=== PATIENT | female | born 1945 | race Caucasian/White ===

== ENCOUNTER 2020-03-14 09:55 | Outpatient (REF) | payer MEDICARE, SELFPAY ==
--- NOTE | 2020-03-14 | MM_ITS ---
EXAMINATION: MM SCREENING DIGITAL BREAST TOMOSYNTHESIS, BILATERAL CLINICAL INFORMATION: Screening. Asymptomatic. The lifetime risk of breast cancer based on the Tyrer-Cuzick Model is 3.3%. COMPARISON: Mammography: March 08, 2019 and studies dating back to December 04, 2011 TECHNIQUE: Digital breast tomosynthesis is performed in both the craniocaudal and mediolateral oblique views along with computer-aided detection (CAD). Synthesized 2D images are generated from the tomosynthesis. FINDINGS: There are scattered areas of fibroglandular density (ACR BI-RADS breast composition Category b). There are no significant masses, abnormal calcifications, or other abnormalities. MM/MM tomosynthesis screening BI IMPRESSION: There are no significant changes from prior study. ASSESSMENT: BI-RADS 1: Negative RECOMMENDATION: Routine annual mammography screening. This patient's information was entered into a reminder system with a target due date for their next mammogram.
== END 2020-03-14 09:56 | disposition home or self-care (01) ==
LOC: HO.MAMMO 09:55
PROVIDERS: PCP Internal Medicine; Visit Provider Internal Medicine
DX: Z12.31 Encounter for screening mammogram for malignant neoplasm of breast (principal)
CPT/HCPCS: 77063; 77067

== ENCOUNTER 2020-03-30 09:39 | Outpatient (REF) | payer MEDICARE, SELFPAY ==
--- NOTE | 2020-03-30 | XR_ITS ---
EXAMINATION: XR FOOT, LEFT CLINICAL INFORMATION: Left foot pain COMPARISON: 12/18/2015 TECHNIQUE: AP, lateral, and oblique views of the left foot. FINDINGS: No acute fracture or dislocation. Mild soft tissue swelling overlies the medial aspect of the foot at the fifth metatarsophalangeal joint region. No osseous erosion. Mild degenerative changes throughout the interphalangeal joints with narrowing and sclerosis. No ankle joint effusion. Small heel spurs. XR/XR foot LT min 3V IMPRESSION: Mild lateral soft tissue swelling without acute osseous abnormality. No osseous erosions. Arthritic changes of the digits.
[2020-03-30 12:30] LABS: Anion Gap 15 (12-20); Blood Urea Nitrogen 17 mg/dL (9-16); Carbon Dioxide 29 mmol/L (22-29); Chloride 99 mmol/L (96-108); Estimated Glomerular Filt Rate > 60; Glucose Random 152 mg/dL (60-115); Potassium 3.7 mmol/l (3.3-5.1); Sodium 139 mmol/L (135-145)
[2020-03-30 12:44] LABS: Estimated Average Glucose 120 mg/dL; Hemoglobin A1c % 5.8 %
== END 2020-03-30 09:40 | disposition home or self-care (01) ==
LOC: HO.HMGCLDS 09:39
PROVIDERS: PCP Internal Medicine; Visit Provider Internal Medicine
DX: M79.672 Pain in left foot (principal); J45.909 Unspecified asthma, uncomplicated; I10 Essential (primary) hypertension; R73.03 Prediabetes
CPT/HCPCS: 73630; 80048; 83036

== ENCOUNTER 2020-08-01 10:33 | Outpatient (REF) | payer MEDICARE, SELFPAY ==
[2020-08-01 13:56] LABS: MANUAL DIFF FLAG NO
[2020-08-01 14:06] LABS: Basophils Absolute Auto 0.1 X10*3/uL (0.0-0.2); Basophils Percent Auto 1.6 % (0-2); Eosinophils Absolute Auto 0.2 X10*3/uL (0.0-0.4); Eosinophils Percent Auto 2.4 % (0-4); Hematocrit 38.4 % (37-47); Hemoglobin 12.8 g/dl (12.0-16.0); Imm Gran Abs Auto 0.03 X10*3/uL (0.00-0.03); Imm Gran Pct Auto 0.4 % (0.0-0.4); Lymphocytes Absolute Auto 1.5 X10*3/uL (1.2-4.9); Lymphocytes Percent Auto 19.5 % (20-40); Mean Corpuscular HGB Conc 33.3 g/dl (31.0-35.0); Mean Corpuscular Hemoglobin 30.8 pg (27.0-33.0); Mean Corpuscular Volume 92.5 fL (80-98); Mean Platelet Volume 10.7 fL (9.4-12.3); Monocytes Percent Auto 12.8 % (2-11); Neutrophils Absolute Auto 4.7 X10*3/uL (2.0-8.3); Neutrophils Percent Auto 63.3 % (45-73); Platelet Count 350 X10*3/uL (160-400); Red Blood Count 4.15 X10*6/uL (4.20-5.50); Red Cell Distribution Width 13.1 % (11.0-16.0); White Blood Count 7.4 X10*3/uL (4.8-10.8)
[2020-08-01 14:12] LABS: Estimated Average Glucose 114 mg/dL; Hemoglobin A1c % 5.6 %
[2020-08-01 14:46] LABS: Alanine Aminotransferase 22 U/L (0-31); Albumin Level 4.2 g/dL (3.5-5.0); Alkaline Phosphatase 70 U/L (39-117); Anion Gap 15 (12-20); Aspartate Amino Transferase 22 U/L (5-31); Bilirubin Total 0.4 mg/dL (0.0-1.0); Blood Urea Nitrogen 15 mg/dL (9-16); Calcium 9.5 mg/dL (8.4-10.2); Carbon Dioxide 28 mmol/L (22-29); Chloride 105 mmol/L (96-108); Estimated Glomerular Filt Rate > 60; Glucose Random 108 mg/dL (60-115); Potassium 4.5 mmol/L (3.3-5.1); Sodium 143 mmol/L (135-145); Total Protein 6.8 g/dL (6.5-8.0)
== END 2020-08-01 10:34 | disposition home or self-care (01) ==
LOC: HO.10HDL 10:33
PROVIDERS: Visit Provider Internal Medicine
DX: R73.03 Prediabetes (principal); J45.909 Unspecified asthma, uncomplicated; I10 Essential (primary) hypertension; K21.9 Gastro-esophageal reflux disease without esophagitis
CPT/HCPCS: 36415; 80053; 83036; 85025

== ENCOUNTER 2020-10-18 10:57 | Outpatient (REF) | payer MEDICARE, SELFPAY ==
[2020-10-18 11:54] LABS: MANUAL DIFF FLAG NO
[2020-10-18 12:03] LABS: Basophils Absolute Auto 0.1 X10*3/uL (0.0-0.2); Basophils Percent Auto 1.7 % (0-2); Eosinophils Absolute Auto 0.3 X10*3/uL (0.0-0.4); Eosinophils Percent Auto 4.4 % (0-4); Hematocrit 39.7 % (37-47); Hemoglobin 13.2 g/dl (12.0-16.0); Imm Gran Abs Auto 0.02 X10*3/uL (0.00-0.03); Imm Gran Pct Auto 0.3 % (0.0-0.4); Lymphocytes Absolute Auto 1.5 X10*3/uL (1.2-4.9); Mean Corpuscular HGB Conc 33.2 g/dl (31.0-35.0); Mean Corpuscular Hemoglobin 30.6 pg (27.0-33.0); Mean Corpuscular Volume 91.9 fL (80-98); Mean Platelet Volume 9.7 fL (9.4-12.3); Monocytes Percent Auto 12.7 % (2-11); Neutrophils Absolute Auto 4.7 X10*3/uL (2.0-8.3); Neutrophils Percent Auto 60.9 % (45-73); Platelet Count 312 X10*3/uL (160-400); Red Blood Count 4.32 X10*6/uL (4.20-5.50); Red Cell Distribution Width 12.8 % (11.0-16.0); White Blood Count 7.7 X10*3/uL (4.8-10.8)
[2020-10-18 12:32] LABS: Alanine Aminotransferase 19 U/L (0-31); Albumin Level 4.3 g/dL (3.5-5.0); Alkaline Phosphatase 74 U/L (39-117); Anion Gap 11 (12-20); Aspartate Amino Transferase 23 U/L (5-31); Bilirubin Total 0.6 mg/dL (0.0-1.0); Blood Urea Nitrogen 12 mg/dL (9-16); Calcium 9.6 mg/dL (8.4-10.2); Carbon Dioxide 28 mmol/L (22-29); Chloride 106 mmol/L (96-108); Estimated Glomerular Filt Rate > 60; Glucose Random 102 mg/dL (60-115); Iron 110 mcg/dL (30-160); Percent Iron Saturation 34 % (15-50); Potassium 3.9 mmol/L (3.3-5.1); Sodium 141 mmol/L (135-145); Total Iron Binding Capacity 322 mcg/dL (228-428); Unsaturated Iron Binding 212 ug/dL
[2020-10-18 12:35] LABS: Estimated Average Glucose 120 mg/dL; Hemoglobin A1c % 5.8 %
== END 2020-10-18 10:58 | disposition home or self-care (01) ==
LOC: HO.LAB 10:57
PROVIDERS: PCP Internal Medicine; Visit Provider Internal Medicine
DX: I10 Essential (primary) hypertension (principal); R60.9 Edema, unspecified; K62.5 Hemorrhage of anus and rectum; R73.03 Prediabetes
CPT/HCPCS: 36415; 80053; 83036; 83540; 85025

== ENCOUNTER 2020-12-01 09:57 | Day surgery (SDC) | payer MEDICARE, SELFPAY ==
--- NOTE | 2020-11-29 15:11 | HO.ANESPROP2 ---
Documented by User: Felisa Arredondo 11/30/20 12:28 HPI - Anesthesia Eval Consult details Narrative: 75yo F for Colonoscopy [facility] Past Medical History Medical History Arthritis Asthma GERD (gastroesophageal reflux disease) Glucose intolerance HLD (hyperlipidemia) HTN (hypertension) Surgical History Surgical History H/O dilation and curettage H/O tubal ligation Meds Allergies Allergy/AdvReac Type Severity Reaction Status Date / Time codeine [CODEINE] Allergy Severe DIFFICULTY Unverified 01/27/20 14:45 BREATHING meperidine [Demerol] Allergy Unknown Verified 07/02/18 00:00 From DARVON Allergy Severe SHORTNESS Uncoded 01/27/20 14:45 OF BREATH Codeine Phosphate Allergy Unknown Uncoded 07/02/18 00:00 Darvon Allergy Unknown Uncoded 07/02/18 00:00 Exam Exam Date and Time: November 29, 2020 1511 Pertinent Lab Results Pertinent Lab Results: Laboratory Tests 10/18/20 10/18/20 11:16 11:16 WBC 7.7 Hgb 13.2 Hct 39.7 Plt Count 312 Sodium 141 Potassium 3.9 Chloride 106 Carbon Dioxide 28 BUN 12 Creatinine 0.72 Assessment and Plan Assessment Anesthesia Assessment: Chart Reviewed Documented by User: Demetrice Rowan 12/01/20 09:37 [facility] Past Medical History Medical History Arthritis Asthma GERD (gastroesophageal reflux disease) Glucose intolerance HLD (hyperlipidemia) HTN (hypertension) Surgical History Surgical History H/O dilation and curettage H/O tubal ligation Meds Allergies Allergy/AdvReac Type Severity Reaction Status Date / Time codeine [CODEINE] Allergy Severe DIFFICULTY Unverified 01/27/20 14:45 BREATHING meperidine [Demerol] Allergy Unknown Verified 07/02/18 00:00 From DARVON Allergy Severe SHORTNESS Uncoded 01/27/20 14:45 OF BREATH Codeine Phosphate Allergy Unknown Uncoded 07/02/18 00:00 Darvon Allergy Unknown Uncoded 07/02/18 00:00
[2020-12-01 10:12] VITALS: BMI 34.7
--- NOTE | 2020-12-01 10:13 | MHC.SHP ---
Pre-Procedural Eval Section A Date of Service: 12/01/20 The patient is an INPATIENT: No Changes since office visit: No Cold of Flu in the past 2 weeks, No New Medical Problems, No Changes in Medication and No Patient answered all questions The History & Physical has been completed within 30 days and I have reviewed it.: Yes Section B Chief Complaint: rectal bleeding Allergies: Allergies Allergy/AdvReac Type Severity Reaction Status Date / Time codeine [CODEINE] Allergy Severe DIFFICULTY Unverified 01/27/20 14:45 BREATHING meperidine [Demerol] Allergy Unknown Verified 07/02/18 00:00 From DARVON Allergy Severe SHORTNESS Uncoded 01/27/20 14:45 OF BREATH Codeine Phosphate Allergy Unknown Uncoded 07/02/18 00:00 Darvon Allergy Unknown Uncoded 07/02/18 00:00 Plan I have reviewed the history and physical and performed a pertinent physical examination on my patient. No changes have occurred unless specified.
[2020-12-01] MEDS: Sodium Phosphate,Mono-Dibasic 133 ML ENEMA PR (10:20)
[2020-12-01 10:44] VITALS: BP 170/61; PULSE 89; RESP 16; TEMP 36.2; O2SAT 95
[2020-12-01] MEDS: Lactated Ringers 1,000 ML 100 ML IVCONT (10:45)
[2020-12-01 11:39] VITALS: BP 111/48; PULSE 71; RESP 16; TEMP 36.3; O2SAT 97
--- NOTE | 2020-12-01 11:50 | P.BOP_ITS ---
Brief Operative Note Date of Service: 12/01/20 Pre-op diagnosis: rectal bleeding Post-op diagnosis: same (hemorrhoids, diverticulosis) Procedure: colonoscopy Surgeon: Earl Sawyer Anesthesia: MAC Was an Technology Sales Specialist used for this Procedure?: No Estimated blood loss (mL): 0 Pathology: none sent Condition: stable Disposition: PACU
[2020-12-01 11:54] VITALS: BP 125/51; PULSE 74; RESP 16; TEMP 36.3; O2SAT 97
--- NOTE | 2020-12-01 21:42 | OP_ITS ---
SURGEON: Earl Sawyer MD INDICATIONS: Rectal bleeding. PREOPERATIVE DIAGNOSIS: POSTOPERATIVE DIAGNOSIS: PROCEDURE PERFORMED: Colonoscopy to the cecum. ESTIMATED BLOOD LOSS: COMPLICATIONS: ANESTHESIA: ASSISTANTS: SPECIMENS: MEDICATIONS: Monitored anesthesia care. DESCRIPTION OF PROCEDURE: History and physical performed. The risks and benefits of the procedure were explained to the patient. Informed consent was obtained. The patient was placed in the left lateral decubitus position. A digital rectal exam was performed and showed a decreasing sphincter tone. The Olympus pediatric video colonoscope was introduced into the rectum and advanced to the cecum without difficulty. The cecum was identified by transillumination, palpation, and identification of ileocecal valve. Examination was performed. The scope was removed. She tolerated the procedure well and was taken to recovery area in stable condition. FINDINGS: The terminal ileum was not examined. The visualized colonic mucosa was normal without evidence of colitis. There was moderate diverticulosis involving the sigmoid with luminal narrowing and muscular hypertrophy. No polyps were identified. There was some formed stool, which was in small pieces that was washed and suctioned. Retroflexed examination showed moderately large internal hemorrhoids and external hemorrhoids were noted on withdrawal of the colonoscope. IMPRESSION: 1. Diverticulosis. 2. Hemorrhoids. RECOMMENDATIONS: 1. Follow up as needed. 2. Further colonoscopy for screening is not recommended based on age. 3. 1% hydrocortisone cream to the rectal area for treatment of hemorrhoids. MD SUNITA Fletcher/DEACON / [id number]
== END 2020-12-01 12:24 | disposition home or self-care (01) ==
PROVIDERS: PCP Internal Medicine; Visit Provider Internal Medicine Gastroenterology
PROC: 0DJD8ZZ Inspection of Lower Intestinal Tract, Via Natural or Artificial Opening Endoscopic (ICD-10-PCS; CPT 45378; principal; 2020-12-01 11:40)
DX: K62.5 Hemorrhage of anus and rectum (principal); R14.0 Abdominal distension (gaseous); Z86.010 Personal history of colon polyps; K57.30 Diverticulosis of large intestine without perforation or abscess without bleeding; K64.8 Other hemorrhoids; K64.4 Residual hemorrhoidal skin tags; K21.9 Gastro-esophageal reflux disease without esophagitis; J45.909 Unspecified asthma, uncomplicated; I10 Essential (primary) hypertension; E74.39 Other disorders of intestinal carbohydrate absorption; Z79.1 Long term (current) use of non-steroidal anti-inflammatories (NSAID); Z79.899 Other long term (current) drug therapy; Z88.8 Allergy status to other drugs, medicaments and biological substances
CPT/HCPCS: 45378

== ENCOUNTER 2020-12-14 20:30 | Inpatient (IN) | payer MEDICARE, SELFPAY ==
--- NOTE | ~2020-12-14 | CT_ITS ---
EXAMINATION: CT ABDOMEN AND PELVIS WITHOUT CONTRAST CLINICAL INFORMATION: Abdominal pain and leukocytosis COMPARISON: 02/21/2013 TECHNIQUE: Multidetector volumetric imaging was performed from the superior aspect of the liver through the pubic symphysis. Sagittal and coronal reformatted images were obtained on the technologist's workstation. This CT examination was performed using dose optimization techniques as appropriate, variously including the following: *Automated exposure control *Adjustment of mA and/or kV according to patient size (this includes techniques or standardized protocols for targeted exams where dose is matched to indication/reason for exam; i.e. extremities or head) *Use of iterative reconstruction technique DLP: 541 mGy-cm FINDINGS: LUNG BASES: The visualized lung bases are unremarkable. LIVER, GALLBLADDER, AND BILIARY TREE: The liver is normal in size, shape, and attenuation. No focal hepatic lesion or biliary ductal dilatation is present. Gallbladder unremarkable. PANCREAS: Unremarkable. SPLEEN: Unremarkable. ADRENAL GLANDS: Unremarkable. KIDNEYS AND URETERS: The kidneys are normal in size, shape, and attenuation. No hydronephrosis, hydroureter, or calculi seen. No perinephric stranding. BLADDER: Unremarkable. GASTROINTESTINAL TRACT: There is edematous wall thickening of the descending and sigmoid colon with mild pericolic fat stranding. There is sigmoid colonic diverticulosis without focal areas of associated inflammation to suggest complicating diverticulitis. Moderate hiatal hernia. Stomach otherwise unremarkable. Small bowel unremarkable. Normal appendix. ABDOMINAL WALL: No significant hernia is appreciated. LYMPH NODES: Mild haziness of the small bowel mesentery and shotty mesenteric lymph nodes appear similar to prior compatible with mesenteric panniculitis. There are a few coarsely calcified lymph nodes near the root of the small bowel mesentery. VASCULAR: Aorta is atherosclerotic but normal caliber. PELVIC VISCERA: Uterus and ovaries unremarkable OSSEOUS STRUCTURES: No acute or suspicious osseous abnormalities. CT/CT abdomen pelvis wo con IMPRESSION: * Findings compatible with descending and sigmoid colitis. * Sigmoid colonic diverticulosis without evidence of diverticulitis. 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 * Evidence of prior granulomatous disease.
[2020-12-14 20:37] VITALS: BP 126/58; BP 148/50; PULSE 78; PULSE 80; RESP 18; TEMP 36.5; O2SAT 96; O2SAT 97; BMI 33.5
--- NOTE | 2020-12-14 21:32 | ECG_ITS ---
Test Reason : GENERAL MEDICAL Blood Pressure : / mmHG Vent. Rate : 090 BPM Atrial Rate : 090 BPM P-R Int : 132 ms QRS Dur : 128 ms QT Int : 410 ms P-R-T Axes : 036 -12 131 degrees QTc Int : 501 ms Normal sinus rhythm Left bundle branch block Abnormal ECG When compared with ECG of 17-JUL-2013 00:46, Left bundle branch block is now Present Referred By: Almita Clements Electronically Signed By:Hima Milton
--- NOTE | 2020-12-14 21:33 | ED.GENADULT ---
HPI - General Adult General Chief complaint: General Medical Stated complaint: near syncope nausea vomiting Time Seen by Provider: 12/14/20 21:31 Source: patient, family (Daughter) and EMS Mode of arrival: EMS Limitations: no limitations History of Present Illness HPI narrative: 75-year-old female came in with her daughter via EMS for evaluation of nausea, vomiting, and diarrhea. 75-year-old female had scrambled eggs for breakfast this morning and then few hours later felt nauseous, abdominal cramps, and diarrhea, while patient having nonbloody watery diarrhea became pale and diaphoretic and passed out. Patient also felt nauseous and had vomited once or twice then after that patient feels better, patient feels chest pain which is burning sensation coming from the epigastric area felt to be after vomiting. Patient declined sick contacts, recent use of antibiotics, or recent travel. Patient has suspicion that scrambled eggs that she ate outside for breakfast is causing her symptoms. Related Data Home Medications Medication Instructions Recorded Confirmed albuterol sulfate 90 mcg/actuation INHALATION 12/01/20 12/01/20 aerosol inhaler (Ventolin HFA) atorvastatin 10 mg tablet 1 tab PO DAILY 12/01/20 12/01/20 ciprofloxacin HCl 500 mg tablet 1 tab PO BID 12/01/20 12/01/20 furosemide 20 mg tablet 1 tab PO DAILY 12/01/20 12/01/20 furosemide 40 mg tablet 1 tab PO DAILY 12/01/20 12/01/20 lisinopril 5 mg tablet 1 tab PO DAILY 12/01/20 12/01/20 metoprolol succinate 25 mg 1 tab PO DAILY 12/01/20 12/01/20 tablet,extended release 24 hr nifedipine 30 mg tablet,extended 1 tab PO DAILY 12/01/20 12/01/20 release 24 hr omeprazole 10 mg capsule,delayed 1 cap PO DAILY 12/01/20 12/01/20 release Allergies Allergy/AdvReac Type Severity Reaction Status Date / Time codeine [CODEINE] Allergy Severe DIFFICULTY Verified 12/14/20 20:47 BREATHING meperidine [Demerol] Allergy Unknown Nausea and Verified 12/14/20 20:47 Vomiting From DARVON Allergy Severe SHORTNESS Uncoded 12/14/20 20:47 OF BREATH Codeine Phosphate Allergy Unknown Nausea and Uncoded 12/14/20 20:47 Vomiting Darvon Allergy Unknown Shortness Uncoded 12/14/20 20:47 of Breath Review of Systems Review of Systems: All other systems are reviewed and are negative Constitutional: Reports as per HPI and Reports no additional constitutional complaints Eyes: Reports as per HPI and Reports no additional eye complaints Reports system reviewed and no additional complaints, except as documented Cardiovascular: Reports as per HPI and Reports no additional cardiovascular complaints Respiratory: Reports as per HPI and Reports no additional respiratory complaints Gastrointestinal: Reports as per HPI and Reports no additional gastrointestinal complaints Genitourinary: Reports no additional female genitourinary complaints Musculoskeletal: Reports no additional musculoskeletal complaints Skin/Breast: Reports system reviewed and no additional complaints, except as docu Psychiatric: Reports no additional psychiatric complaints Endocrine: Reports no additional endocrine complaints Hematologic/Lymphatic: Reports no additional hematologic/lymphatic complaints Allergic/Immunologic: Reports no additional allergic/immunologic complaints Reports system reviewed and no additional complaints, except as documented and Reports Abnormal speech present [facility] Past Medical History Medical History Arthritis Asthma GERD (gastroesophageal reflux disease) Glucose intolerance HLD (hyperlipidemia) HTN (hypertension) Surgical History H/O dilation and curettage H/O tubal ligation Social History Social History Patient Tobacco Use Status: Never used Tobacco Second Hand Smoke Exposure: No Advance Directives: No Advance Directives Information Provided: Yes Physical Exam Vital Signs: Vital Signs: Last Vital Signs Temp 98.1 F 12/14/20 23:05 Pulse 98 12/14/20 23:05 Resp 14 12/14/20 23:05 BP 154/66 H 12/14/20 23:05 Pulse Ox 97 12/14/20 23:05 Body Mass Index 33.5 Vital signs have been reviewed as appeared to be correct. Blood pressure normal. Heart rate normal. Respiration rate normal. Temperature normal. Oxygen saturation normal. Appearance: Alert. Oriented X3. No acute distress. Head: Normal external exam. Normocephalic. Atraumatic. No Kang signs noted. No raccoon eyes noted Eyes: PERRLA. EOMI. Conjunctiva and sclera normal. Eyelids normal. ENT: TM's Normal. Pharynx normal. Uvula midline. Moist mucous membranes. No trismus noted. No drooling noted. No muffled voice noted. Neck: Normal inspection. Neck supple. FROM. No adenopathy. Thyroid Normal. No meningeal signs. No neck mass noted. CVS: Normal heart rate and rhythm. Heart sound normal. No murmurs noted. Pulses normal throughout. Respiratory: No respiratory distress. Painless inspiration. Breath sounds normal. No wheezes/rales/rhonchi noted. Chest nontender. No accessory muscle usage noted or decreased air movement noted. Abdomen: Soft, diffuse abdominal tenderness, no rebound tenderness, no guarding. Bowel sounds normal in all 4 quadrants. No distention noted. No organomegaly noted. No visible injury noted. Back: No CVA tenderness. Full range of motion noted. Skin: Skin warm and dry. Normal skin color. Normal skin turgor. No rashes/lesions/lacerations noted. Extremities: No lower extremity edema. Extremities exhibit normal range of motion. Extremities nontender. Neuro: Oriented X 3. No motor deficit. No sensory deficit. Reflexes normal. Course Course Course Narrative: Assessment and plan. 75-year-old female came in with diffuse abdominal pain after eating bad food, patient is meeting criteria for SIRS by tachycardia and leukocytosis, patient had no source of infection until CT resulted as colitis at 23:35, 1 sepsis protocol was initiated, patient received IV fluids/IV antibiotic/blood culture/lactic acid/admit. Medical Decision Making Lab Data Lab results reviewed: Yes I reviewed the patient's lab results. Result diagrams: 12/14/20 22:41 12/14/20 22:41 Labs: Lab Results 12/14/20 12/14/20 12/14/20 Range/Units 22:29 22:41 22:41 WBC 22.2 H (4.8-10.8) X10*3/uL RBC 4.22 (4.20-5.50) X10*6/uL Hgb 13.1 (12.0-16.0) g/dl Hct 38.7 (37-47) % MCV 91.7 (80-98) fL MCH 31.0 (27.0-33.0) pg MCHC 33.9 (31.0-35.0) g/dl RDW 13.0 (11.0-16.0) % Plt Count 304 (160-400) X10*3/uL MPV 9.5 (9.4-12.3) fL Immature Gran % (Auto) 0.5 H (0.0-0.4) % Neut % (Auto) 83.1 H (45-73) % Lymph % (Auto) 5.8 L (20-40) % Dawson % (Auto) 9.8 (2-11) % Eos % (Auto) 0.3 (0-4) % Baso % (Auto) 0.5 (0-2) % Lymph # (Auto) 1.3 (1.2-4.9) X10*3/uL Dawson # (Auto) 2.2 H (0.1-1.2) X10*3/uL Eos # (Auto) 0.1 (0.0-0.4) X10*3/uL Baso # (Auto) 0.1 (0.0-0.2) X10*3/uL Abs Immat Gran (auto) 0.11 H (0.00-0.03) X10*3/uL Absolute Neuts (auto) 18.4 H (2.0-8.3) X10*3/uL Absolute Nucleated RBC 0.000 (0.0-0.012) X10*3/uL Nucleated RBC % (auto) 0.0 (0.0-0.2) /100WBC Smear Tech's Comments VERIFIED Sodium 140 (135-145) mmol/L Potassium 3.6 (3.3-5.1) mmol/L Chloride 103 (96-108) mmol/L Carbon Dioxide 26 (22-29) mmol/L Anion Gap 15 (12-20) BUN 17 H (9-16) mg/dL Creatinine 0.84 (0.5-1.4) mg/dL Estim Creat Clear Calc 45.4 Estimated GFR > 60 Random Glucose 127 H (60-115) mg/dL Calcium 8.9 D (8.4-10.2) mg/dL Total Bilirubin 0.5 (0.0-1.0) mg/dL Direct Bilirubin 0.2 (0.0-0.5) mg/dL AST 23 (5-31) U/L ALT 21 (0-31) U/L Alkaline Phosphatase 84 (39-117) U/L Troponin I High Sens (<3.5-17.0) ng/L B-Natriuretic Peptide (<100) pg/mL Total Protein 6.8 (6.5-8.0) g/dL Albumin 4.1 (3.5-5.0) g/dL Lipase 26 (8-78) U/L Urine Color DARK YELLOW Urine Appearance CLEAR Urine pH 6.0 (5.0-8.0) Ur Specific [place] 1.020 (1.005-1.025) Urine Protein TRACE (NEG-TRACE) MG/DL Urine Glucose (UA) NEG (NEG) MG/DL Urine Ketones NEG (NEG) MG/DL Urine Blood NEG (NEG) Urine Nitrite NEG (NEG) Ur Leukocyte Esterase 1+ H (NEG) Urine RBC 1-4 (0) /HPF Urine WBC 10-14 H (0-4) /HPF Ur Squamous Epith Cells 2+ /LPF Urine Bacteria 2+ /LPF Hyaline Casts 1-4 /LPF Urine Mucus 2+ /LPF 12/14/ Range/Units 22:41 WBC (4.8-10.8) X10*3/uL RBC (4.20-5.50) X10*6/uL Hgb (12.0-16.0) g/dl Hct (37-47) % MCV (80-98) fL MCH (27.0-33.0) pg MCHC (31.0-35.0) g/dl RDW (11.0-16.0) % Plt Count (160-400) X10*3/uL MPV (9.4-12.3) fL Immature Gran % (Auto) (0.0-0.4) % Neut % (Auto) (45-73) % Lymph % (Auto) (20-40) % Dawson % (Auto) (2-11) % Eos % (Auto) (0-4) % Baso % (Auto) (0-2) % Lymph # (Auto) (1.2-4.9) X10*3/uL Dawson # (Auto) (0.1-1.2) X10*3/uL Eos # (Auto) (0.0-0.4) X10*3/uL Baso # (Auto) (0.0-0.2) X10*3/uL Abs Immat Gran (auto) (0.00-0.03) X10*3/uL Absolute Neuts (auto) (2.0-8.3) X10*3/uL Absolute Nucleated RBC (0.0-0.012) X10*3/uL Nucleated RBC % (auto) (0.0-0.2) /100WBC Smear Tech's Comments Sodium (135-145) mmol/L Potassium (3.3-5.1) mmol/L Chloride (96-108) mmol/L Carbon Dioxide (22-29) mmol/L Anion Gap (12-20) BUN (9-16) mg/dL Creatinine (0.5-1.4) mg/dL Estim Creat Clear Calc Estimated GFR Random Glucose (60-115) mg/dL Calcium (8.4-10.2) mg/dL Total Bilirubin (0.0-1.0) mg/dL Direct Bilirubin (0.0-0.5) mg/dL AST (5-31) U/L ALT (0-31) U/L Alkaline Phosphatase (39-117) U/L Troponin I High Sens 4.7 (<3.5-17.0) ng/L B-Natriuretic Peptide 27 (<100) pg/mL Total Protein (6.5-8.0) g/dL Albumin (3.5-5.0) g/dL Lipase (8-78) U/L Urine Color Urine Appearance Urine pH (5.0-8.0) Ur Specific [place] (1.005-1.025) Urine Protein (NEG-TRACE) MG/DL Urine Glucose (UA) (NEG) MG/DL Urine Ketones (NEG) MG/DL Urine Blood (NEG) Urine Nitrite (NEG) Ur Leukocyte Esterase (NEG) Urine RBC (0) /HPF Urine WBC (0-4) /HPF Ur Squamous Epith Cells /LPF Urine Bacteria /LPF Hyaline Casts /LPF Urine Mucus /LPF Imaging Data CT scan - abdomen: Radiologist's impression: *? Findings compatible with descending and sigmoid colitis. *? Sigmoid colonic diverticulosis without evidence of diverticulitis. *? 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 *? Evidence of prior granulomatous disease.? ECG Data Interpretation: Normal sinus rhythm at 90 beats per minute, left axis deviation, left bundle-branch block which is new from previous EKG. Discharge Plan Discharge Clinical Impression: Colitis Patient Disposition: Admitted As Inpatient Prescriptions: No Action nifedipine 30 mg tablet extended release 24hr 1 tab PO DAILY RF: 0 furosemide 40 mg tablet 1 tab PO DAILY RF: 0 atorvastatin 10 mg tablet 1 tab PO DAILY RF: 0 ciprofloxacin HCl 500 mg tablet 1 tab PO BID RF: 0 omeprazole 10 mg capsule,delayed release(DR/EC) 1 cap PO DAILY RF: 0 lisinopril 5 mg tablet 1 tab PO DAILY RF: 0 furosemide 20 mg tablet 1 tab PO DAILY RF: 0 metoprolol succinate 25 mg tablet extended release 24 hr 1 tab PO DAILY RF: 0 albuterol sulfate [Ventolin HFA] 90 mcg/actuation HFA aerosol inhaler inhalation RF: 0
[2020-12-14] MEDS: 0.9 % Sodium Chloride 1,000 ML 999 ML IVCONT (22:30)
[2020-12-14 22:36] LABS: Glucose Urine UA NEG (NEG); Leukocyte Esterase Urine 1+ (NEG); Nitrite Urine NEG (NEG); UACC Culture Trigger YES; Urine Blood NEG (NEG); Urine Ketones NEG (NEG); Urine Protein TRACE MG/DL (NEG-TRACE)
[2020-12-14 22:42] LABS: Appearance Urine CLEAR; Color Urine DARK YELLOW
[2020-12-14 22:48] LABS: Basophils Absolute Auto 0.1 X10*3/uL (0.0-0.2); Basophils Percent Auto 0.5 % (0-2); Eosinophils Absolute Auto 0.1 X10*3/uL (0.0-0.4); Eosinophils Percent Auto 0.3 % (0-4); Hematocrit 38.7 % (37-47); Hemoglobin 13.1 g/dl (12.0-16.0); Imm Gran Abs Auto 0.11 X10*3/uL (0.00-0.03); Imm Gran Pct Auto 0.5 % (0.0-0.4); Lymphocytes Absolute Auto 1.3 X10*3/uL (1.2-4.9); Lymphocytes Percent Auto 5.8 % (20-40); MANUAL DIFF FLAG SCAN; Mean Corpuscular HGB Conc 33.9 g/dl (31.0-35.0); Mean Corpuscular Volume 91.7 fL (80-98); Mean Platelet Volume 9.5 fL (9.4-12.3); Monocytes Absolute Auto 2.2 X10*3/uL (0.1-1.2); Monocytes Percent Auto 9.8 % (2-11); Neutrophils Absolute Auto 18.4 X10*3/uL (2.0-8.3); Neutrophils Percent Auto 83.1 % (45-73); Platelet Count 304 X10*3/uL (160-400); Red Blood Count 4.22 X10*6/uL (4.20-5.50); SCAN SMEAR FLAG 1; White Blood Count 22.2 X10*3/uL (4.8-10.8)
[2020-12-14 22:51] LABS: Bacteria Urine 2+ /LPF; Mucus Urine 2+ /LPF; Squamous Epithelial Cell Urine 2+ /LPF
[2020-12-14 23:05] VITALS: BP 154/66; PULSE 98; RESP 14; TEMP 36.7; O2SAT 97
[2020-12-14 23:09] LABS: SLIDE REVIEW VERIFIED
[2020-12-14 23:19] LABS: Alanine Aminotransferase 21 U/L (0-31); Albumin Level 4.1 g/dL (3.5-5.0); Alkaline Phosphatase 84 U/L (39-117); Anion Gap 15 (12-20); Aspartate Amino Transferase 23 U/L (5-31); Bilirubin Direct 0.2 mg/dL (0.0-0.5); Bilirubin Total 0.5 mg/dL (0.0-1.0); Blood Urea Nitrogen 17 mg/dL (9-16); Calcium 8.9 mg/dL (8.4-10.2); Carbon Dioxide 26 mmol/L (22-29); Chloride 103 mmol/L (96-108); Creatinine Clr Calc Pharmacy 45.4; Estimated Glomerular Filt Rate > 60; Glucose Random 127 mg/dL (60-115); Lipase 26 U/L (8-78); Potassium 3.6 mmol/L (3.3-5.1); Sodium 140 mmol/L (135-145); Total Protein 6.8 g/dL (6.5-8.0)
[2020-12-14 23:23] LABS: B Type Natriuretic Peptide 27 pg/mL (<100); Troponin-I High Sensitivity 4.7 ng/L (<3.5-17.0)
[2020-12-15] VITALS (7 sets, daily range): BP systolic 138–169; BP diastolic 60–73; PULSE 85–117; RESP 13–19; TEMP 36.7–37; O2SAT 94–97
--- NOTE | 2020-12-15 00:59 | P.HPHOSP_ITS ---
History of Present Illness Date of Service: 12/15/20 Chief Complaint: Nausea vomiting, abdominal pain, diarrhea 75-year-old female with a past medical history of hypertension, hyperlipidemia, peripheral edema on Lasix, asthma, recent colonoscopy on last Friday, history of internal and external hemorrhoids; presented to the hospital today with a chief complaint of nausea vomiting/diarrhea/abdominal discomfort. Patient reports that symptoms started this afternoon; had multiple episodes of diarrhea and multiple episodes of vomiting; vomitus is clear; but noted blood in the stool; patient attributes her blood in the stool to her internal and external hemorrhoids chest noted on the recent colonoscopy. Denies any pain during bowel movement; denies any tenesmus. Patient mentions that her abdominal discomfort is crampy in nature; Denies being on antibiotics recently. Review of all other systems is negative except mentioned above ER course: Per ER team patient noted to have descending and sigmoid colitis on the CT scan. Given antibiotics. Admitted to the hospital for further management. [facility] Medical History Arthritis Asthma GERD (gastroesophageal reflux disease) Glucose intolerance HLD (hyperlipidemia) HTN (hypertension) Surgical History H/O dilation and curettage H/O tubal ligation Social History Household Members: None Housing: House Do you presently have visiting nurse or other home services: No Patient Tobacco Use Status: Never used Tobacco Second Hand Smoke Exposure: No service: No Current occupational status: retired Meds Allergies Allergy/AdvReac Type Severity Reaction Status Date / Time codeine [CODEINE] Allergy Severe DIFFICULTY Verified 12/14/20 20:47 BREATHING meperidine [Demerol] Allergy Unknown Nausea and Verified 12/14/20 20:47 Vomiting From DARVON Allergy Severe SHORTNESS Uncoded 12/14/20 20:47 OF BREATH Codeine Phosphate Allergy Unknown Nausea and Uncoded 12/14/20 20:47 Vomiting Darvon Allergy Unknown Shortness Uncoded 12/14/20 20:47 of Breath Active Medications: Current Medications Generic Name Dose Route Start Last Admin Trade Name Freq PRN Reason Stop Dose Admin Levofloxacin 750 mg in 150 mls @ 100 mls/hr 12/15/20 00:11 Levaquin IV 12/15/20 01:40 ONCE ONE Metronidazole 500 mg in 100 mls @ 100 mls/hr 12/15/20 00:11 Flagyl IV 12/15/20 01:10 ONCE ONE Ceftriaxone Sodium 1 gm/ 50 mls @ 100 mls/hr 12/15/20 01:00 Sodium Chloride IV Q24H GONZALO Metronidazole 500 mg in 100 mls @ 100 mls/hr 12/15/20 01:00 Flagyl IV Q8H [facility] Home Medications Medication Instructions Recorded Confirmed Last Taken Type albuterol sulfate 90 mcg/actuation 2 puff INHALATION QID PRN 12/01/20 12/15/20 12/01/20 History aerosol inhaler (Ventolin HFA) atorvastatin 10 mg tablet 1 tab PO BEDTIME 12/01/20 12/15/20 12/13/20 History furosemide 40 mg tablet 1 tab PO DAILY 12/01/20 12/15/20 12/14/20 History lisinopril 5 mg tablet 1 tab PO DAILY 12/01/20 12/15/20 12/14/20 History metoprolol succinate 25 mg 1 tab PO DAILY 12/01/20 12/15/20 12/14/20 History tablet,extended release 24 hr nifedipine 30 mg tablet,extended 1 tab PO DAILY 12/01/20 12/15/20 12/14/20 History release 24 hr omeprazole 10 mg capsule,delayed 1 cap PO DAILY 12/01/20 12/15/20 12/14/20 History release ascorbic acid (vitamin C) 1,000 mg 1,000 mg PO DAILY 12/15/20 12/15/20 12/14/20 History tablet (Vitamin C) vitamin B complex 1 tab PO DAILY 12/15/20 12/15/20 12/14/20 History Physical Exam Vital Signs and Narrative: Vital Signs: Last Vital Signs Temp 98.1 F 12/14/20 23:05 Pulse 98 12/14/20 23:05 Resp 14 12/14/20 23:05 BP 154/66 H 12/14/20 23:05 Pulse Ox 97 12/14/20 23:05 Body Mass Index 33.5 Gen: Appears be in no acute distress HEENT: NCAT, Moist mucosa. Pulmonary: Vesicular breath sounds, fair air entry CVS: Normal S1-S2 Abdomen: BS+, Soft, mildly tender on deep palpation in the left lower quadrant. Extremities: Warm well perfused Neuro: Alert and awake. Results Labs CBC and Chem 7: 12/17/20 07:45 12/15/20 05:26 Labs: Laboratory Results - last 24 hr 12/14/20 12/14/20 12/14/20 22:29 22:41 22:41 MCV 91.7 MCH 31.0 MCHC 33.9 RDW 13.0 Plt Count 304 MPV 9.5 Immature Gran % (Auto) 0.5 H Neut % (Auto) 83.1 H Lymph % (Auto) 5.8 L [place] % (Auto) 9.8 Eos % (Auto) 0.3 Baso % (Auto) 0.5 Lymph # (Auto) 1.3 [place] # (Auto) 2.2 H Eos # (Auto) 0.1 Baso # (Auto) 0.1 Abs Immat Gran (auto) 0.11 H Absolute Neuts (auto) 18.4 H Absolute Nucleated RBC 0.000 Nucleated RBC % (auto) 0.0 Smear Tech's Comments VERIFIED Anion Gap 15 Estim Creat Clear Calc 45.4 Estimated GFR > 60 Random Glucose 127 H Calcium 8.9 D Total Bilirubin 0.5 Direct Bilirubin 0.2 AST 23 ALT 21 Alkaline Phosphatase 84 Troponin I High Sens B-Natriuretic Peptide Total Protein 6.8 Albumin 4.1 Lipase 26 Urine Color DARK YELLOW Urine Appearance CLEAR Urine pH 6.0 Ur Specific [place] 1.020 Urine Protein TRACE Urine Glucose (UA) NEG Urine Ketones NEG Urine Blood NEG Urine Nitrite NEG Ur Leukocyte Esterase 1+ H Urine RBC 1-4 Urine WBC 10-14 H Ur Squamous Epith Cells 2+ Urine Bacteria 2+ Hyaline Casts 1-4 Urine Mucus 2+ 12/14/20 22:41 MCV MCH MCHC RDW Plt Count MPV Immature Gran % (Auto) Neut % (Auto) Lymph % (Auto) [place] % (Auto) Eos % (Auto) Baso % (Auto) Lymph # (Auto) [place] # (Auto) Eos # (Auto) Baso # (Auto) Abs Immat Gran (auto) Absolute Neuts (auto) Absolute Nucleated RBC Nucleated RBC % (auto) Smear Tech's Comments Anion Gap Estim Creat Clear Calc Estimated GFR Random Glucose Calcium Total Bilirubin Direct Bilirubin AST ALT Alkaline Phosphatase Troponin I High Sens 4.7 B-Natriuretic Peptide 27 Total Protein Albumin Lipase Urine Color Urine Appearance Urine pH Ur Specific [place] Urine Protein Urine Glucose (UA) Urine Ketones Urine Blood Urine Nitrite Ur Leukocyte Esterase Urine RBC Urine WBC Ur Squamous Epith Cells Urine Bacteria Hyaline Casts Urine Mucus Imaging Radiologist's Impressions: Impressions Abdomen/Pelvis CT 12/14/20 23:35 IMPRESSION: * Findings compatible with descending and sigmoid colitis. * Sigmoid colonic diverticulosis without evidence of diverticulitis. 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 * Evidence of prior granulomatous disease. Assessment and Plan (1) Colitis: Status: Acute 75-year-old female with a past medical history of hypertension, hyperlipidemia, asthma, history of internal and external hemorrhoids, recent colonoscopy presented to the hospital with a chief complaint of nausea vomiting diarrhea, blood in the stool, abdominal discomfort; noted to have colitis on the CT scan. Admitted for further management. Colitis: Noted to have low descending and sigmoid colon colitis on the CT scan. Continue ceftriaxone and Flagyl. Patient had recent colonoscopy. Patient complains of blood in the stool-attributes to internal and external hemorrhoids. General surgery consult for further recommendations. History of hypertension/hyperlipidemia: Continue home medications. History of peripheral edema: Hold home Lasix for now. DVT prophylaxis: SCD boots Code status: Full code Quality Stroke Does the patient have a stroke diagnosis?: No VTE Prior VTE?: No VTE Risk Level:: Medical - moderate - high VTE Device Contraindication: N/A - Device Ordered VTE Drug Contraindication: Treatment Not Indicated
[2020-12-15] MEDS: levoFLOXacin/D5W 750 MG/150 ML PIGGYBACK 100 MG IV (02:00)
[2020-12-15] MEDS: Morphine Sulfate 4 MG/ML CARTRIDGE 1 MG IVPUSH (02:32)
[2020-12-15 02:36] LABS: Lactic Acid 1.9 mmol/L (0.5-2.0)
[2020-12-15] MEDS: metroNIDAZOLE/NS 500 MG/100 ML PIGGYBACK 100 MG IV ×4 (03:37→23:22)
[2020-12-15 05:07] LABS: Influenza A PCR NEGATIVE (Negative); Influenza B PCR NEGATIVE (Negative); Resp Syncy Virus RNA Qual PCR NEGATIVE (Negative); SARS COV2 PCR INHOUSE NEGATIVE (Negative)
[2020-12-15 05:38] LABS: Basophils Absolute Auto 0.1 X10*3/uL (0.0-0.2); Basophils Percent Auto 0.4 % (0-2); Eosinophils Percent Auto 0.1 % (0-4); Hematocrit 38.1 % (37-47); Imm Gran Abs Auto 0.08 X10*3/uL (0.00-0.03); Imm Gran Pct Auto 0.5 % (0.0-0.4); Lymphocytes Absolute Auto 0.9 X10*3/uL (1.2-4.9); MANUAL DIFF FLAG SCAN; Mean Corpuscular HGB Conc 34.1 g/dl (31.0-35.0); Mean Corpuscular Volume 90.9 fL (80-98); Mean Platelet Volume 9.6 fL (9.4-12.3); Monocytes Absolute Auto 1.8 X10*3/uL (0.1-1.2); Monocytes Percent Auto 10.3 % (2-11); Neutrophils Absolute Auto 14.3 X10*3/uL (2.0-8.3); Neutrophils Percent Auto 83.7 % (45-73); Platelet Count 284 X10*3/uL (160-400); Red Blood Count 4.19 X10*6/uL (4.20-5.50); Red Cell Distribution Width 13.1 % (11.0-16.0); SCAN SMEAR FLAG 1; White Blood Count 17.1 X10*3/uL (4.8-10.8)
[2020-12-15 05:54] LABS: Anion Gap 16 (12-20); Blood Urea Nitrogen 15 mg/dL (9-16); Calcium 8.6 mg/dL (8.4-10.2); Carbon Dioxide 22 mmol/L (22-29); Chloride 106 mmol/L (96-108); Creatinine Clr Calc Pharmacy 52.2; Estimated Glomerular Filt Rate > 60; Glucose Random 137 mg/dL (60-115); Potassium 4.1 mmol/L (3.3-5.1); Sodium 140 mmol/L (135-145)
--- NOTE | 2020-12-15 07:45 | HE.PHANOTE ---
Pharmacy Consult ? Medication Reconciliation Pharmacy has completed the medication reconciliation and there were no significant medication issues requiring provider attention.?Patient reports taking atorvastatin even though according to claim history. Mariah MathewD
[2020-12-15] MEDS: 0.9 % Sodium Chloride Flush 3 ML SYRINGE IVFLUSH ×3 (08:28→23:23)
--- NOTE | 2020-12-15 08:30 | PC.NURSE ---
Pt alert and oriented x3, Pt Reports lower abdominal cramping, +BS x4, no nausea, no vomiting, no sob, no difficulty breathing. Pt resting quietly, no apparent distress. Room assignment pending.
--- NOTE | 2020-12-15 09:50 | PC.NURSE ---
Report given to receiving nurse CARINA Bridges. Pt will be transported to room 384.
--- NOTE | 2020-12-15 10:55 | PHA.MEDREC ---
Pharmacy Consult ? Medication Reconciliation Pharmacy has completed the medication reconciliation.
[2020-12-15] MEDS: Dextrose 5 % and 0.45 % NaCl 1,000 ML 100 ML IVCONT (11:01)
--- NOTE | 2020-12-15 12:48 | MHC.CM.PN ---
Addendum entered by Bisi Michael 12/15/20 12:52: PATIENTN REPORTED THAT SHE RECEIVED THE [facility] COVID VACINATION JULY AND SECOND SHOT IN AUGUST SHE ALSO REPORTED SHE HAS A HEALTH CARE PROXY AT HOME , I REQUESTED SHE BRNG IN OR MAIL TO [facility] ONCE DISCHARGED Original Note: NURSE B AND B GANG WORKER NOTE ELECTRONIC MEDICAL RECORD REVIEWED ALONG WITH CASE DISCUSSED WITH STAFF NURSE AND ON MULTIPLE DISCIPLINARY ROUNDS MET WITH PATIENT SHE LIVES ALONE, SHE INS ACTIVE, INDEPENDENT IN ALL ADLS AND MOBILITY WITHOUT ANY DEVICES. SHE IS ABLE TO GO UP/DOWN THE STAIRS, CONTINUES TO DRIVE A CAR , HER DAUGHTER LIVES CLOSE BY AND WILL PROVIDE TRANSPORTATION AT DISCHARGE HOME. DISCHARGE PLAN HOME NO SERVICES PCP DR BAKER PATIENT TO CALL FOR POST HOSPITAL DISCHARGE FOLLOW UP TRANSPORTATION HER DAUGHTER MEDICARE IMM GIVEN 12/15/20
--- NOTE | 2020-12-15 13:35 | HO.PM.IMPN ---
Subjective Subjective Date of Service: 12/15/20 Interval History: seen and examined this morning follow up for colitis ongoing crampy abdominal pain, episode of rectal bleeding denies any fever, chills Review of Systems Review of Systems: Yes all other systems are reviewed and are negative Constitutional Constitutional: Denies chills and Denies fever(s) Cardiovascular Cardiovascular: Denies chest pain Respiratory Respiratory: Denies cough Gastrointestinal Gastrointestinal: Reports abdominal pain and Reports hematochezia Physical Exam Vital Signs: Vital Signs: Last Vital Signs Temp 98.3 F 12/15/20 12:00 Pulse 102 H 12/15/20 12:00 Resp 19 12/15/20 12:00 BP 140/64 H 12/15/20 12:00 Pulse Ox 96 12/15/20 12:00 Body Mass Index 33.5 Const: Nutritional Appearance: well nourished Orientation/consciousness: patient oriented x3 HENMT: Head: Yes normocephalic and Yes atraumatic Eyes: Sclerae: sclerae normal Resp: Effort & Inspection: normal respiratory effort and no respiratory distress Cardio: Rate: regular rate Rhythm: regular rhythm GI: Palpation (GI): Soft to palpation and Tenderness to palpation present (GI) (mid abdominal TTP) Neuro: General: patient oriented x3 Cranial nerves: Yes CN's II-XII intact bilaterally and Yes Bilaterally intact EOM present Extrem: General: Yes normal to inspection Objective Data Current Medications Generic Name Dose Route Start Last Admin Trade Name Freq PRN Reason Stop Dose Admin Acetaminophen 650 mg 12/15/20 00:58 Acetaminophen 325 Mg Tablet PO Q6H PRN Pain, Mild (Pain Scale 1-3) Ceftriaxone Sodium 1 gm/ 50 mls @ 100 mls/hr 12/15/20 22:00 Sodium Chloride IV Q24H GONZALO Metronidazole 500 mg in 100 mls @ 100 mls/hr 12/15/20 08:00 12/15/20 09:53 Flagyl IV Infused Q8H GONZALO Infusion Dextrose/Sodium Chloride 1,000 mls @ 100 mls/hr 12/15/20 01:00 12/15/20 11:01 D51/2ns IVCONT 100 mls/hr .Q10H GONZALO Administration Melatonin 6 mg 12/15/20 00:58 Melatonin 3 Mg Tablet PO BEDTIME PRN Insomnia Morphine Sulfate 1 mg 12/15/20 00:58 12/15/20 02:32 Morphine Sulfate 4 Mg/Ml Cartridge IVPUSH 1 mg Q4H PRN Administration Pain, Severe (Pain Scale 7-10) Pharmacy Consult 1 each 12/15/20 07:48 Consult Rx Perform Med Rec MISCELLANE ONCE PRN Consult order Sodium Chloride 3 ml 12/15/20 08:00 12/15/20 08:28 0.9 % Sodium Chloride Flush 3 Ml Syringe IVFLUSH 3 ml QSHIFT GONZALO Administration Labs CBC & Chem 7: 12/15/20 05:26 12/15/20 05:26 Labs: Laboratory Results - last 24 hr 12/14/20 12/14/20 12/14/20 22:29 22:41 22:41 MCV 91.7 MCH 31.0 MCHC 33.9 RDW 13.0 Plt Count 304 MPV 9.5 Immature Gran % (Auto) 0.5 H Neut % (Auto) 83.1 H Lymph % (Auto) 5.8 L [place] % (Auto) 9.8 Eos % (Auto) 0.3 Baso % (Auto) 0.5 Lymph # (Auto) 1.3 [place] # (Auto) 2.2 H Eos # (Auto) 0.1 Baso # (Auto) 0.1 Abs Immat Gran (auto) 0.11 H Absolute Neuts (auto) 18.4 H Absolute Nucleated RBC 0.000 Nucleated RBC % (auto) 0.0 Smear Tech's Comments VERIFIED Anion Gap 15 Estim Creat Clear Calc 45.4 Estimated GFR > 60 Random Glucose 127 H Lactic Acid Calcium 8.9 D Total Bilirubin 0.5 Direct Bilirubin 0.2 AST 23 ALT 21 Alkaline Phosphatase 84 Troponin I High Sens B-Natriuretic Peptide Total Protein 6.8 Albumin 4.1 Lipase 26 Urine Color DARK YELLOW Urine Appearance CLEAR Urine pH 6.0 Ur Specific [place] 1.020 Urine Protein TRACE Urine Glucose (UA) NEG Urine Ketones NEG Urine Blood NEG Urine Nitrite NEG Ur Leukocyte Esterase 1+ H Urine RBC 1-4 Urine WBC 10-14 H Ur Squamous Epith Cells 2+ Urine Bacteria 2+ Hyaline Casts 1-4 Urine Mucus 2+ Coronavirus (PCR) Influenza Type A (PCR) Influenza Type B (PCR) RSV RNA Qual (PCR) 12/14/20 12/15/20 12/15/20 22:41 01:26 01:45 MCV MCH MCHC RDW Plt Count MPV Immature Gran % (Auto) Neut % (Auto) Lymph % (Auto) [place] % (Auto) Eos % (Auto) Baso % (Auto) Lymph # (Auto) [place] # (Auto) Eos # (Auto) Baso # (Auto) Abs Immat Gran (auto) Absolute Neuts (auto) Absolute Nucleated RBC Nucleated RBC % (auto) Smear Tech's Comments Anion Gap Estim Creat Clear Calc Estimated GFR Random Glucose Lactic Acid 1.9 Calcium Total Bilirubin Direct Bilirubin AST ALT Alkaline Phosphatase Troponin I High Sens 4.7 B-Natriuretic Peptide 27 Total Protein Albumin Lipase Urine Color Urine Appearance Urine pH Ur Specific [place] Urine Protein Urine Glucose (UA) Urine Ketones Urine Blood Urine Nitrite Ur Leukocyte Esterase Urine RBC Urine WBC Ur Squamous Epith Cells Urine Bacteria Hyaline Casts Urine Mucus Coronavirus (PCR) NEGATIVE Influenza Type A (PCR) NEGATIVE Influenza Type B (PCR) NEGATIVE RSV RNA Qual (PCR) NEGATIVE 12/15/20 12/15/20 05:26 05:26 MCV 90.9 MCH 31.0 MCHC 34.1 RDW 13.1 Plt Count 284 MPV 9.6 Immature Gran % (Auto) 0.5 H Neut % (Auto) 83.7 H Lymph % (Auto) 5.0 L [place] % (Auto) 10.3 Eos % (Auto) 0.1 Baso % (Auto) 0.4 Lymph # (Auto) 0.9 L [place] # (Auto) 1.8 H Eos # (Auto) 0.0 Baso # (Auto) 0.1 Abs Immat Gran (auto) 0.08 H Absolute Neuts (auto) 14.3 H Absolute Nucleated RBC 0.000 Nucleated RBC % (auto) 0.0 Smear Tech's Comments Anion Gap 16 Estim Creat Clear Calc 52.2 Estimated GFR > 60 Random Glucose 137 H Lactic Acid Calcium 8.6 Total Bilirubin Direct Bilirubin AST ALT Alkaline Phosphatase Troponin I High Sens B-Natriuretic Peptide Total Protein Albumin Lipase Urine Color Urine Appearance Urine pH Ur Specific [place] Urine Protein Urine Glucose (UA) Urine Ketones Urine Blood Urine Nitrite Ur Leukocyte Esterase Urine RBC Urine WBC Ur Squamous Epith Cells Urine Bacteria Hyaline Casts Urine Mucus Coronavirus (PCR) Influenza Type A (PCR) Influenza Type B (PCR) RSV RNA Qual (PCR) Assessment and Plan (1) Colitis: Status: Acute Assessment and Plan: This is a 75-year-old female with a past medical history of hypertension, hyperlipidemia, asthma, history of internal and external hemorrhoids, recent colonoscopy presented to the hospital with a chief complaint of nausea vomiting diarrhea, blood in the stool, abdominal discomfort; noted to have colitis on the CT scan.? . Colitis:? Noted to have low descending and sigmoid colon colitis on the CT scan. Still having abdominal pain, leukocytosis trending down -Continue ceftriaxone and Flagyl -IVF -GI consult -pain control Rectal bleeding Related to colitis vs hemorrhoidal bleeding. Has been having bleeding intermittently since july. Patient had recent colonoscopy showing diverticulosis and both internal and external hemorrhoid -follow cbc, no indication for blood transfusion -GI consult HTN -hold lisinopril, lasix -resume metoprolol, nifedipine HLD hold statin, can resume on d/c DVT prophylaxis:? SCD boots due to rectal bleeding Code status:? Full code attending: dr. espinal Quality Stroke Does the patient have a stroke diagnosis?: No VTE Prior VTE?: No VTE Risk Level:: Medical - moderate - high VTE Device Contraindication: N/A - Device Ordered VTE Drug Contraindication: Treatment Not Indicated
[2020-12-15] MEDS: Metoprolol Succinate ER 25 MG TAB.ER.24H PO (15:02)
[2020-12-15] MEDS: Dicyclomine HCl 10 MG CAPSULE PO (16:53)
--- NOTE | 2020-12-15 20:02 | CONS_ITS ---
DATE OF SERVICE: 12/15/2020 REFERRING PHYSICIAN: CHARLIE Deleon REASON FOR CONSULTATION: Colitis. HISTORY OF PRESENT ILLNESS: The patient is a pleasant 75-year-old woman, well known to me from recent evaluation. She was recently seen for colonoscopy on December 01 because of rectal bleeding. Findings at that time included moderate sigmoid diverticulosis with luminal narrowing and muscular hypertrophy. No polyps were identified. She did have moderately large internal and external hemorrhoids. She did well following the procedure and reports going out for the breakfast the day before admission. Later that evening, she developed abdominal cramping with nausea, vomiting, and diarrhea. There were no fever or chills. She felt lightheaded and nearly syncopal and was brought to the emergency department by ambulance. There was no hematemesis. She did have rectal bleeding, which she attributed to the hemorrhoids. Evaluation in the emergency room included laboratory studies, which are reviewed. She did have an elevated white count at 22.2. Chemistries were fairly unremarkable and CT imaging of the abdomen and pelvis was also obtained, which is interpreted as showing descending and sigmoid colitis. She was treated with antibiotics and admitted to the hospital. Stool specimens have been ordered and are pending. She is tolerating clear liquids and has had no vomiting since admission. PAST MEDICAL HISTORY: 1. Diverticulosis. 2. Gastroesophageal reflux disease. 3. Hypertension. 4. Hyperlipidemia. 5. Elevated blood sugar. 6. Asthma. 7. Arthritis. CURRENT MEDICATIONS: Her current medication list is reviewed in the chart. ALLERGIES: MULTIPLE MEDICATION ALLERGIES ARE REVIEWED. FAMILY HISTORY: This is reviewed with the patient and is noncontributory. SOCIAL HISTORY: There is no current tobacco, alcohol, or substance abuse. She was [place] the [place]. REVIEW OF SYSTEMS: SKIN: No pruritus. HEENT: Negative. CARDIOPULMONARY: No shortness of breath or chest pain. She denies any recent travel, antibiotic usage, ill contacts, or suspect food ingestions. GENITOURINARY: Negative. NEUROPSYCHIATRIC: Negative. PHYSICAL EXAMINATION: GENERAL: Shows a pleasant female, sitting comfortably in the chair with her daughter. VITAL SIGNS: Stable. SKIN: Anicteric. HEENT: Shows no scleral icterus. NECK: Without lymphadenopathy or thyromegaly. LUNGS: Clear. HEART: Shows a regular rate and rhythm. S1, S2. No murmur. ABDOMEN: Soft without focal masses or tenderness. Bowel sounds are present. No organomegaly is noted. EXTREMITIES: Without edema. LABORATORY DATA: CT scanning and laboratory studies are reviewed as above. IMPRESSION: My impression is that this appears to be an acute colitis and gastroenteritis, likely viral in etiology. Stool specimens are in the process of being obtained and she is being treated empirically with antibiotics. The rectal bleeding seems suspicious for hemorrhoids given her findings on her recent colonoscopy. At this point, I agree with treating her supportively with IV fluids, pain medications, and gradually advancing her diet. She can use dicyclomine for abdominal cramping. I do not think she needs repeat colonoscopy at this time. Thanks for asking me to see her. I will follow her in the hospital with you. MD SUNITA Fletcher/DEACON / [phone]
[2020-12-15] MEDS: cefTRIAXone sodium 1 GM in 0.9 % Sodium Chloride 50 ML IV (21:45)
[2020-12-16] VITALS: BP 150/65; PULSE 89; RESP 16; TEMP 36.4; O2SAT 95
[2020-12-16 04:00] VITALS: BP 175/60; PULSE 89; RESP 18; TEMP 36.3; O2SAT 93
[2020-12-16 08:00] VITALS: BP 150/60; PULSE 93; RESP 19; TEMP 36.6; O2SAT 96
[2020-12-16] MEDS: metroNIDAZOLE/NS 500 MG/100 ML PIGGYBACK 100 MG IV (09:09)
[2020-12-16] MEDS: 0.9 % Sodium Chloride Flush 3 ML SYRINGE IVFLUSH ×3 (09:10→21:00)
[2020-12-16] MEDS: Metoprolol Succinate ER 25 MG TAB.ER.24H PO (09:12)
[2020-12-16] MEDS: NIFEdipine ER 30 MG TAB.ER.24 PO (09:12)
[2020-12-16] MEDS: Dicyclomine HCl 10 MG CAPSULE PO ×2 (10:21→18:09)
[2020-12-16 11:43] VITALS: BP 154/67; PULSE 77; RESP 18; TEMP 36.4; O2SAT 96
--- NOTE | 2020-12-16 12:22 | HO.PM.IMPN ---
Subjective Subjective Date of Service: 12/16/20 Interval History: f/u colitis, feels a lot better than yesterday. No pain, no nausea vomiting or diarrhea. Review of Systems Gen: no fever Resp: no sob, no cough CV: no chest, no WALKER, no leg edema GI: No n/v, no abd pain Neuro: No confusion Physical Exam Vital Signs: Vital Signs: Last Vital Signs Temp 97.5 F 12/16/20 11:43 Pulse 77 12/16/20 11:43 Resp 18 12/16/20 11:43 BP 154/67 H 12/16/20 11:43 Pulse Ox 96 12/16/20 11:43 Body Mass Index 33.5 Const: Other: General: AO X 3, no acute distress Resp: CTA bilateral CVS: S1,S2,RRR GI: +BS, NT, no distention Skin: No rash Neuro: motor grossly intact Psych: appropriate affect Objective Data Current Medications Generic Name Dose Route Start Last Admin Trade Name Freq PRN Reason Stop Dose Admin Acetaminophen 650 mg 12/15/20 00:58 Acetaminophen 325 Mg Tablet PO Q6H PRN Pain, Mild (Pain Scale 1-3) Dicyclomine HCl 10 mg 12/15/20 16:19 12/16/20 10:21 Dicyclomine Hcl 10 Mg Capsule PO 10 mg QIDACHS PRN Administration Muscle Spasm Ceftriaxone Sodium 1 gm/ 50 mls @ 100 mls/hr 12/15/20 22:00 12/15/20 22:55 Sodium Chloride IV Infused Q24H GONZALO Infusion Melatonin 6 mg 12/15/20 00:58 Melatonin 3 Mg Tablet PO BEDTIME PRN Insomnia Metoprolol Succinate 25 mg 12/15/20 14:00 12/16/20 09:12 Metoprolol Succinate Er 25 Mg Tab.Er.24h PO 25 mg DAILY GONZALO Administration Protocol Morphine Sulfate 2 mg 12/16/20 12:16 Morphine Sulfate 4 Mg/Ml Cartridge IVPUSH Q4H PRN Pain, Severe (Pain Scale 7-10) Nifedipine 30 mg 12/16/20 09:00 12/16/20 09:12 Nifedipine Er 30 Mg Tab.Er.24 PO 30 mg DAILY GONZALO Administration Protocol Pharmacy Consult 1 each 12/15/20 07:48 Consult Rx Perform Med Rec MISCELLANE ONCE PRN Consult order Sodium Chloride 3 ml 12/15/20 08:00 12/16/20 09:10 0.9 % Sodium Chloride Flush 3 Ml Syringe IVFLUSH 3 ml QSHIFT GONZALO Administration Labs CBC & Chem 7: 12/15/20 05:26 12/15/20 05:26 Microbiology Microbiology Results: Microbiology 12/15/20 19:00 Stool Culture - Preliminary Stool Culture in progress. 12/15/20 01:56 Blood Culture - Preliminary Blood - Venous No growth after 24 hours. 12/15/20 01:45 Blood Culture - Preliminary Blood - Venous No growth after 24 hours. Assessment and Plan (1) Colitis: Status: Acute Assessment and Plan: 75-year-old female with a past medical history of hypertension, hyperlipidemia, asthma, history of internal and external hemorrhoids, recent colonoscopy presented to the hospital with a chief complaint of nausea vomiting diarrhea, blood in the stool, abdominal discomfort; noted to have colitis on the CT scan.? . Colitis of descending and sigmoid colon colitis on the CT scan. Clinically better. WBC trending down. Treated with IV Levaquin and IV Flagyl. Presently without pain, will transition to oral Levaquin and Flagyl. Advance diet. GI has seen the patient and recommend no intervention at this time. She has not been having any diarrhea and therefore stool studies cannot be done. Rectal bleeding Related to colitis vs hemorrhoidal bleeding. Has been having bleeding intermittently since july. Patient had recent colonoscopy showing diverticulosis and both internal and external hemorrhoid. No further workup at this time according to GI. HTN -hold lisinopril, lasix -continue metoprolol, nifedipine HLD hold statin, can resume on d/c DVT prophylaxis:? SCD boots due to rectal bleeding Code status:? Full code home later today if tolerate diet Quality Stroke Does the patient have a stroke diagnosis?: No VTE Prior VTE?: No VTE Risk Level:: Medical - moderate - high VTE Device Contraindication: N/A - Device Ordered VTE Drug Contraindication: Treatment Not Indicated
[2020-12-16 13:05] LABS: Hematocrit 37.7 % (37-47); Hemoglobin 12.6 g/dl (12.0-16.0); Mean Corpuscular HGB Conc 33.4 g/dl (31.0-35.0); Mean Corpuscular Volume 92.6 fL (80-98); Platelet Count 258 X10*3/uL (160-400); Red Blood Count 4.07 X10*6/uL (4.20-5.50); Red Cell Distribution Width 13.4 % (11.0-16.0); White Blood Count 17.9 X10*3/uL (4.8-10.8)
[2020-12-16 15:37] VITALS: BP 130/58; PULSE 92; RESP 19; TEMP 36.6; O2SAT 96
[2020-12-16 18:49] LABS: OBS Int Ctl Valid YES; OBS1 POSITIVE (NEGATIVE)
[2020-12-16 19:38] VITALS: BP 138/52; PULSE 96; RESP 19; TEMP 36.7; O2SAT 96
[2020-12-16 19:59] LABS: Leukocytes Stool Qualitative NEGATIVE (NEGATIVE)
[2020-12-16] MEDS: Famotidine/PF 20 MG/2 ML VIAL IVPUSH (21:00)
[2020-12-16] MEDS: cefTRIAXone sodium 1 GM in 0.9 % Sodium Chloride 50 ML IV (21:00)
[2020-12-17] VITALS: BP 160/50; PULSE 94; RESP 16; TEMP 36.4; O2SAT 95
[2020-12-17 04:00] VITALS: BP 149/88; PULSE 94; RESP 16; TEMP 36.1; O2SAT 95
[2020-12-17 08:00] VITALS: BP 120/60; PULSE 90; RESP 18; TEMP 36.4; O2SAT 96
[2020-12-17 08:03] LABS: Hematocrit 37.7 % (37-47); Hemoglobin 12.5 g/dl (12.0-16.0); Mean Corpuscular HGB Conc 33.2 g/dl (31.0-35.0); Mean Corpuscular Hemoglobin 30.6 pg (27.0-33.0); Mean Corpuscular Volume 92.2 fL (80-98); Platelet Count 285 X10*3/uL (160-400); Red Blood Count 4.09 X10*6/uL (4.20-5.50); Red Cell Distribution Width 13.2 % (11.0-16.0); White Blood Count 13.7 X10*3/uL (4.8-10.8)
--- NOTE | 2020-12-17 08:42 | PM.DS ---
DS: Providers Provider Date of Service: 12/16/20 Date of admission: 12/15/20 00:58 Primary care physician: Harvey Soria MD Consults: 12/15/20 10:22 Consult to Gastroenterology Routine Consulting Provider: Earl Sawyer Reason for consultation: colitis Has provider been notified: No DS: Diagnosis Discharge Diagnosis (1) Colitis: Status: Acute DS: Medications Discharge Medications Home Medications: Home Medications Medication Instructions Recorded Confirmed albuterol sulfate 90 mcg/actuation 2 puff INHALATION QID PRN 12/01/20 12/15/20 aerosol inhaler (Ventolin HFA) atorvastatin 10 mg tablet 1 tab PO BEDTIME 12/01/20 12/15/20 furosemide 40 mg tablet 1 tab PO DAILY 12/01/20 12/15/20 lisinopril 5 mg tablet 1 tab PO DAILY 12/01/20 12/15/20 metoprolol succinate 25 mg 1 tab PO DAILY 12/01/20 12/15/20 tablet,extended release 24 hr nifedipine 30 mg tablet,extended 1 tab PO DAILY 12/01/20 12/15/20 release 24 hr omeprazole 10 mg capsule,delayed 1 cap PO DAILY 12/01/20 12/15/20 release ascorbic acid (vitamin C) 1,000 mg 1,000 mg PO DAILY 12/15/20 12/15/20 tablet (Vitamin C) vitamin B complex 1 tab PO DAILY 12/15/20 12/15/20 DS: Summary Hospital Course Hospital Course: Chief Complaint: Nausea vomiting, abdominal pain, diarrhea 75-year-old female with a past medical history of hypertension, hyperlipidemia, peripheral edema on Lasix, asthma, recent colonoscopy on last Friday, history of internal and external hemorrhoids; presented to the hospital today with a chief complaint of nausea vomiting/diarrhea/abdominal discomfort. Patient reports that symptoms started this afternoon; had multiple episodes of diarrhea and multiple episodes of vomiting; vomitus is clear; but noted blood in the stool; patient attributes her blood in the stool to her internal and external hemorrhoids chest noted on the recent colonoscopy. Denies any pain during bowel movement; denies any tenesmus.? Patient mentions that her abdominal discomfort is crampy in nature; Denies being on antibiotics recently. Hospital course: patient was admitted and treated with IV antibiotics with Flagyl and Ceftriaxone and is doing much better, WBC is trending down, she doesn't have any pain now, she is tolerating regular diet, Dr. Silverio HAIR saw her and thinks transient GIB likely from hemorrhoid and has no had further bleeding. Unable to do stool study because she's no longer having diarrhea. Will therefore discharge home with Oral Ceftin and Flagyl. She feels very comfortable going home today Time Spent with Patient Time attestation: Total time spent providing and/or coordinating discharge services: Discharge coordination time: Greater than 30 minutes Quality: Stroke Does the patient have a stroke diagnosis?: No Physical Exam Vital Signs: Vital Signs: Selected Entries 12/17/20 04:00 Temperature 97.0 F Pulse Rate 94 Respiratory Rate 16 Blood Pressure 149/88 H Pulse Oximetry 95 Oxygen Delivery Me thod Room Air Body Mass Index 33.5 Const: Other: General: AO X 3, no acute distress Resp: CTA bilateral CVS: S1,S2,RRR GI: +BS, NT, no distention Skin: No rash Neuro: motor grossly intact Psych: appropriate affect DS: Data Data Completed and Pending Labs on day of discharge: Preliminary micro results at discharge 12/15/20 19:00 Stool Culture - Preliminary Stool Culture in progress. 12/15/20 01:56 Blood Culture - Preliminary Blood - Venous No growth after 24 hours. 12/15/20 01:45 Blood Culture - Preliminary Blood - Venous No growth after 24 hours. Discharge Plan Discharge Anticipated Discharge Date/Time: 12/17/20 08:38 Patient Disposition: Home, Self-Care Discharge Diagnosis: colitis Referrals: Harvey Soria MD [Primary Care Provider] - 1 Week Discharge Medications: New metronidazole [Flagyl] 500 mg tablet 500 mg PO TID Qty: 15 RF: 0 cefuroxime axetil 500 mg tablet 500 mg PO BID 7 Days Qty: 14 RF: 0 Continued nifedipine 30 mg tablet extended release 24hr 1 tab PO DAILY RF: 0 furosemide 40 mg tablet 1 tab PO DAILY RF: 0 atorvastatin 10 mg tablet 1 tab PO BEDTIME RF: 0 omeprazole 10 mg capsule,delayed release(DR/EC) 1 cap PO DAILY RF: 0 lisinopril 5 mg tablet 1 tab PO DAILY RF: 0 metoprolol succinate 25 mg tablet extended release 24 hr 1 tab PO DAILY RF: 0 albuterol sulfate [Ventolin HFA] 90 mcg/actuation HFA aerosol inhaler 2 puff inhalation QID PRN (Reason: Shortness Of Breath Or Wheezing) RF: 0 ascorbic acid (vitamin C) [Vitamin C] 1,000 mg Tablet 1,000 mg PO DAILY RF: 0 vitamin B complex Tablet 1 tab PO DAILY RF: 0 Discharge Orders: Discharge Order (Routine); Ordered 12/17/20 Ordered By: Caleb Blue Diet: advance to usual diet Activity on Discharge: As tolerated Stand Alone Forms: Patient Portal Discharge page Care Plan Goals: Full recovery from colitis Health Concerns: colitis Plan of Treatment: Take Malik and Rm, follow up with your Doctor in a week, call for appointment Assessment: as above
--- NOTE | 2020-12-17 08:49 | MHC.CM.PN ---
PT CLEARED TO DC HOME TODAY WITH NO SERVICES. FAMILY TO TRANSPORT
[2020-12-17] MEDS: NIFEdipine ER 30 MG TAB.ER.24 PO (10:10)
[2020-12-17] MEDS: Metoprolol Succinate ER 25 MG TAB.ER.24H PO (10:10)
== END 2020-12-17 11:22 | disposition home or self-care (01) | DRG 392 ==
LOC: HO.ED 12-15 00:24 → HO.EDOVER 12-15 01:25 → HO.S3 12-15 07:03
PROVIDERS: Admitting Provider Hospitalist; Emergency Provider Emergency Medicine; PCP Internal Medicine; Visit Provider Internal Medicine
DX: K52.9 Noninfective gastroenteritis and colitis, unspecified (principal); K64.9 Unspecified hemorrhoids; Z20.822 Contact with and (suspected) exposure to COVID-19; Z88.5 Allergy status to narcotic agent; Z79.899 Other long term (current) drug therapy
CPT/HCPCS: 0241U; 36415; 74176; 80048; 80076; 81001; 82272; 83605; 83690; 83880; 84484; 85025; 85027; 87040; 87045; 87046; 89055; 93005; 99285; J0696; J1956; J2270

== ENCOUNTER 2021-01-02 10:11 | Outpatient (REF) | payer MEDICARE, SELFPAY ==
[2021-01-02 11:52] LABS: MANUAL DIFF FLAG NO
[2021-01-02 11:56] LABS: Basophils Absolute Auto 0.1 X10*3/uL (0.0-0.2); Basophils Percent Auto 1.3 % (0-2); Eosinophils Absolute Auto 0.2 X10*3/uL (0.0-0.4); Eosinophils Percent Auto 2.1 % (0-4); Hematocrit 39.3 % (37-47); Hemoglobin 12.6 g/dl (12.0-16.0); Imm Gran Abs Auto 0.04 X10*3/uL (0.00-0.03); Imm Gran Pct Auto 0.4 % (0.0-0.4); Lymphocytes Absolute Auto 1.7 X10*3/uL (1.2-4.9); Lymphocytes Percent Auto 18.7 % (20-40); Mean Corpuscular HGB Conc 32.1 g/dl (31.0-35.0); Mean Corpuscular Hemoglobin 30.4 pg (27.0-33.0); Mean Corpuscular Volume 94.9 fL (80-98); Mean Platelet Volume 10.7 fL (9.4-12.3); Monocytes Absolute Auto 1.2 X10*3/uL (0.1-1.2); Monocytes Percent Auto 12.9 % (2-11); Neutrophils Absolute Auto 5.8 X10*3/uL (2.0-8.3); Neutrophils Percent Auto 64.6 % (45-73); Platelet Count 543 X10*3/uL (160-400); Red Blood Count 4.14 X10*6/uL (4.20-5.50); Red Cell Distribution Width 13.2 % (11.0-16.0)
[2021-01-02 12:22] LABS: Alanine Aminotransferase 18 U/L (0-31); Albumin Level 3.9 g/dL (3.5-5.0); Alkaline Phosphatase 72 U/L (39-117); Anion Gap 14 (12-20); Aspartate Amino Transferase 19 U/L (5-31); Bilirubin Total 0.4 mg/dL (0.0-1.0); Blood Urea Nitrogen 8 mg/dL (9-16); C Reactive Protein 1.08 mg/dL (< or = 0.50); Calcium 9.7 mg/dL (8.4-10.2); Carbon Dioxide 29 mmol/L (22-29); Chloride 102 mmol/L (96-108); Estimated Glomerular Filt Rate > 60; Glucose Random 132 mg/dL (60-115); Potassium 4.2 mmol/L (3.3-5.1); Sodium 141 mmol/L (135-145); Total Protein 6.8 g/dL (6.5-8.0)
== END 2021-01-02 10:12 | disposition home or self-care (01) ==
LOC: HO.HMGCLDS 10:11
PROVIDERS: PCP Internal Medicine; Visit Provider Internal Medicine
DX: K52.9 Noninfective gastroenteritis and colitis, unspecified (principal); I10 Essential (primary) hypertension; K57.90 Diverticulosis of intestine, part unspecified, without perforation or abscess without bleeding
CPT/HCPCS: 36415; 80053; 85025; 86140

== ENCOUNTER 2021-03-29 09:43 | Outpatient (REF) | payer MEDICARE, SELFPAY ==
--- NOTE | ~2021-03-29 | MM_ITS ---
EXAMINATION: MM SCREENING DIGITAL BREAST TOMOSYNTHESIS, BILATERAL CLINICAL INFORMATION: Screening. Asymptomatic. The lifetime risk of breast cancer based on the Tyrer-Cuzick Model is 3%. COMPARISON: Mammography: 03/14/2020, 03/08/2019, 03/04/2018 TECHNIQUE: Digital breast tomosynthesis is performed in both the craniocaudal and mediolateral oblique views along with computer-aided detection (CAD). Synthesized 2D images are generated from the tomosynthesis. FINDINGS: There are scattered areas of fibroglandular density (ACR BI-RADS breast composition Category b). There is an old biopsy clip marker posterior central 9:00 right breast. Parenchymal pattern is similar to prior studies. There is no developing density or interval mass or interval abnormal calcifications. The axilla and skin contours are unremarkable. No significant changes. MM/MM tomosynthesis screening BI IMPRESSION: No significant changes from prior studies. ASSESSMENT: BI-RADS 2: Benign RECOMMENDATION: Routine annual mammography screening. This patient's information was entered into a reminder system with a target due date for their next mammogram.
== END 2021-03-29 09:44 | disposition home or self-care (01) ==
LOC: HO.MAMMO 09:43
PROVIDERS: Visit Provider Internal Medicine
DX: Z12.31 Encounter for screening mammogram for malignant neoplasm of breast (principal)
CPT/HCPCS: 77063; 77067

== ENCOUNTER 2021-04-25 12:09 | Outpatient (REF) | payer MEDICARE, SELFPAY ==
[2021-04-25 13:52] LABS: MANUAL DIFF FLAG NO
[2021-04-25 13:55] LABS: Basophils Absolute Auto 0.1 X10*3/uL (0.0-0.2); Basophils Percent Auto 1.4 % (0-2); Eosinophils Absolute Auto 0.3 X10*3/uL (0.0-0.4); Eosinophils Percent Auto 3.6 % (0-4); Hematocrit 39.8 % (37.0-47.0); Hemoglobin 13.1 g/dl (12.0-16.0); Imm Gran Abs Auto 0.02 X10*3/uL (0.00-0.03); Imm Gran Pct Auto 0.3 % (0.0-0.4); Lymphocytes Absolute Auto 1.7 X10*3/uL (1.2-4.9); Lymphocytes Percent Auto 22.3 % (20-40); Mean Corpuscular HGB Conc 32.9 g/dl (31.0-35.0); Mean Corpuscular Hemoglobin 30.3 pg (27.0-33.0); Mean Corpuscular Volume 92.1 fL (80.0-98.0); Mean Platelet Volume 10.4 fL (9.4-12.3); Monocytes Absolute Auto 0.9 X10*3/uL (0.1-1.2); Monocytes Percent Auto 12.1 % (2-11); Neutrophils Absolute Auto 4.7 x10*3/uL (2.0-8.3); Neutrophils Percent Auto 60.3 % (45-73); Platelet Count 369 X10*3/uL (160-400); Red Blood Count 4.32 X10*6/uL (4.20-5.50); Red Cell Distribution Width 13.4 % (11.0-16.0); White Blood Count 7.8 X10*3/uL (4.8-10.8)
[2021-04-25 14:30] LABS: Alanine Aminotransferase 20 U/L (0-31); Albumin Level 4.3 g/dL (3.5-5.0); Alkaline Phosphatase 73 U/L (39-117); Anion Gap 11 (12-20); Aspartate Amino Transferase 23 U/L (5-31); Bilirubin Total 0.6 mg/dL (0.0-1.0); Blood Urea Nitrogen 11 mg/dL (9-16); C Reactive Protein 0.18 mg/dL (< or = 0.50); Carbon Dioxide 30 mmol/L (22-29); Chloride 104 mmol/L (96-108); Estimated Glomerular Filt Rate > 60; Glucose Random 100 mg/dL (60-115); Potassium 4.6 mmol/L (3.3-5.1); Sodium 140 mmol/L (135-145); Total Protein 7.2 g/dL (6.5-8.0)
[2021-04-25 16:20] LABS: Vitamin B12 425 pg/mL (200-900)
[2021-04-27 05:21] LABS: Lyme Abs Screen <0.90 index
== END 2021-04-25 12:10 | disposition home or self-care (01) ==
LOC: HO.10HDL 12:09
PROVIDERS: Visit Provider Internal Medicine
DX: R60.0 Localized edema (principal); K21.9 Gastro-esophageal reflux disease without esophagitis; I10 Essential (primary) hypertension; R29.810 Facial weakness
CPT/HCPCS: 36415; 80053; 82550; 82607; 85025; 86140; 86617; 86618

== ENCOUNTER 2021-05-08 08:33 | Outpatient (REF) | payer MEDICARE, SELFPAY ==
--- NOTE | ~2021-05-08 | CT_ITS ---
EXAMINATION: CT HEAD WITH/WITHOUT CONTRAST CLINICAL INFORMATION: Right facial droop COMPARISON: CT had noncontrast 01/31/2017 TECHNIQUE: Contiguous axial imaging was performed from the skull base to vertex before and after the administration of 100 mL of Omnipaque 350 intravenous contrast. Additional 2-D coronal and sagittal reformatted images are generated on the CT workstation and uploaded to PACS. This CT examination was performed using dose optimization techniques as appropriate, variously including the following: *Automated exposure control *Adjustment of mA and/or kV according to patient size (this includes techniques or standardized protocols for targeted exams where dose is matched to indication/reason for exam; i.e. extremities or head) *Use of iterative reconstruction technique DLP: 1196 mGy-cm FINDINGS: There is no evidence of acute intracranial hemorrhage or territorial infarction. No abnormal mass effect or midline shift is seen. Hernandez to white matter differentiation is well preserved. No extra-axial fluid collections are identified. There is no abnormal enhancement. There is mild accentuated cortical sulci frontal region. The ventricles are normal in size. There is no abnormal attenuation within the brain parenchyma. The osseous structures and soft tissues are normal. The mastoid air cells and visualized portions of the paranasal sinuses are well aerated. CT/CT head/brain wo/w con IMPRESSION: No acute intracranial pathology.
[2021-05-08] MEDS: iohexoL 350 MG/ML 100 ML INFUS..BTL 85 ML IV (09:36)
== END 2021-05-08 08:34 | disposition home or self-care (01) ==
LOC: HO.CT 08:33
PROVIDERS: Visit Provider Internal Medicine
DX: R29.810 Facial weakness (principal)
CPT/HCPCS: 70470; Q9967

== ENCOUNTER 2021-08-03 11:49 | Outpatient (REF) | payer MEDICARE, SELFPAY ==
[2021-08-03 14:13] LABS: Alanine Aminotransferase 23 U/L (0-31); Albumin Level 4.2 g/dL (3.5-5.0); Alkaline Phosphatase 68 U/L (39-117); Anion Gap 12 (12-20); Aspartate Amino Transferase 22 U/L (5-31); Bilirubin Total 0.8 mg/dL (0.0-1.0); Blood Urea Nitrogen 11 mg/dL (9-16); Calcium 9.4 mg/dL (8.4-10.2); Carbon Dioxide 27 mmol/L (22-29); Chloride 105 mmol/L (96-108); Estimated Glomerular Filt Rate > 60; Glucose Random 101 mg/dL (60-115); Potassium 4.2 mmol/L (3.3-5.1); Sodium 140 mmol/L (135-145); Total Protein 7.1 g/dL (6.5-8.0)
== END 2021-08-03 11:50 | disposition home or self-care (01) ==
LOC: HO.HMGCLDS 11:49
PROVIDERS: Visit Provider Internal Medicine
DX: I10 Essential (primary) hypertension (principal); K21.9 Gastro-esophageal reflux disease without esophagitis; R60.9 Edema, unspecified; J45.909 Unspecified asthma, uncomplicated
CPT/HCPCS: 36415; 80053

== ENCOUNTER 2022-02-25 09:48 | Outpatient (REF) | payer MEDICARE, SELFPAY ==
[2022-02-25 11:20] LABS: MANUAL DIFF FLAG NO
[2022-02-25 11:49] LABS: Basophils Absolute Auto 0.2 X10*3/uL (0.0-0.2); Basophils Percent Auto 2.1 % (0-2); Eosinophils Absolute Auto 0.2 X10*3/uL (0.0-0.4); Eosinophils Percent Auto 3.2 % (0-4); Hemoglobin 13.4 g/dl (12.0-16.0); Imm Gran Abs Auto 0.02 X10*3/uL (0.00-0.03); Imm Gran Pct Auto 0.3 % (0.0-0.4); Lymphocytes Absolute Auto 1.7 X10*3/uL (1.2-4.9); Lymphocytes Percent Auto 24.2 % (20-40); Mean Corpuscular HGB Conc 33.5 g/dl (31.0-35.0); Mean Corpuscular Hemoglobin 30.7 pg (27.0-33.0); Mean Corpuscular Volume 91.5 fL (80.0-98.0); Mean Platelet Volume 10.8 fL (9.4-12.3); Monocytes Absolute Auto 0.9 X10*3/uL (0.1-1.2); Monocytes Percent Auto 12.2 % (2-11); Neutrophils Absolute Auto 4.2 x10*3/uL (2.0-8.3); Platelet Count 363 X10*3/uL (160-400); Red Blood Count 4.37 X10*6/uL (4.20-5.50); Red Cell Distribution Width 12.9 % (11.0-16.0); White Blood Count 7.2 X10*3/uL (4.8-10.8)
[2022-02-25 12:19] LABS: Thyroid Stimulating Hormone 1.55 uIU/mL (0.32-4.0)
[2022-02-25 12:36] LABS: Alanine Aminotransferase 16 U/L (0-31); Albumin Level 4.3 g/dL (3.5-5.0); Alkaline Phosphatase 75 U/L (39-117); Anion Gap 16 (12-20); Aspartate Amino Transferase 19 U/L (5-31); Bilirubin Total 0.9 mg/dL (0.0-1.0); Blood Urea Nitrogen 12 mg/dL (9-16); Calcium 9.1 mg/dL (8.4-10.2); Carbon Dioxide 26 mmol/L (22-29); Chloride 102 mmol/L (96-108); Cholesterol 169 mg/dL; Estimated Glomerular Filt Rate > 60; Glucose Fasting 122 mg/dL (60-99); HDL Cholesterol 50 mg/dL; LDL Cholesterol Calculated 92 mg/dl; Potassium 3.5 mmol/L (3.3-5.1); Sodium 140 mmol/L (135-145); Total Protein 7.2 g/dL (6.5-8.0); Triglycerides 135 mg/dL
== END 2022-02-25 09:49 | disposition home or self-care (01) ==
LOC: HO.HMGCLDS 09:48
PROVIDERS: PCP Internal Medicine; Visit Provider Internal Medicine
DX: I10 Essential (primary) hypertension (principal); J45.909 Unspecified asthma, uncomplicated; E78.00 Pure hypercholesterolemia, unspecified; R60.0 Localized edema
CPT/HCPCS: 36415; 80053; 80061; 84443; 85025

== ENCOUNTER 2022-04-11 10:00 | Outpatient (REF) | payer MEDICARE, SELFPAY ==
--- NOTE | ~2022-04-11 | MM_ITS ---
EXAMINATION: MM SCREENING DIGITAL BREAST TOMOSYNTHESIS, BILATERAL CLINICAL INFORMATION: Screening. Asymptomatic. The lifetime risk of breast cancer based on the Tyrer-Cuzick Model is 2.2%. COMPARISON: Mammography: 03/29/2021 and studies dating back to 01/25/2016. TECHNIQUE: Digital breast tomosynthesis is performed in both the craniocaudal and mediolateral oblique views along with computer-aided detection (CAD). Synthesized 2D images are generated from the tomosynthesis. FINDINGS: There are scattered areas of fibroglandular density (ACR BI-RADS breast composition Category b). There is a stable parenchymal pattern in the right breast with no new abnormal dominant mass or suspicious grouping of microcalcifications. Within the anterior lateral aspect of the left breast, approximately 4.5 cm from the nipple, there is a circumscribed density with developing microcalcifications without linear forms and without tea-cupping, for which spot magnification views and possible ultrasound is recommended. MM/MM tomosynthesis screening BI IMPRESSION: Left breast density for further evaluation. ASSESSMENT: BI-RADS 0: Incomplete - Need Additional Imaging Evaluation. RECOMMENDATION: 1. Additional views of the left breast. 2. Targeted ultrasound if warranted after review of the additional views. 3. Radiology department staff will contact the patient for additional imaging. This patient's information was entered into a reminder system with a target due date for their next mammogram.
== END 2022-04-11 10:01 | disposition home or self-care (01) ==
LOC: HO.MAMMO 10:00
PROVIDERS: PCP Internal Medicine; Visit Provider Internal Medicine
DX: Z12.31 Encounter for screening mammogram for malignant neoplasm of breast (principal)
CPT/HCPCS: 77063; 77067

== ENCOUNTER 2022-05-22 13:23 | Outpatient (REF) | payer MEDICARE, SELFPAY ==
--- NOTE | ~2022-05-22 | US_ITS ---
EXAMINATION: MM DIAGNOSTIC DIGITAL MAMMOGRAPHY, LEFT US TARGETED LEFT BREAST ULTRASOUND CLINICAL INFORMATION: Density with calcifications upper outer aspect left breast. COMPARISON: Mammography: 04/11/2022 and studies dating back to 01/25/2016. TECHNIQUE: Digital mammography is performed in the following views: Spot magnification views left breast in craniocaudal and 90-degree mediolateral views. FINDINGS: There are scattered areas of fibroglandular density (ACR BI-RADS breast composition Category b). Spot compression views demonstrate persistence of a partially circumscribed rounded 6 x 6 mm density upper outer aspect approximately 4 cm from the nipple. Targeted left breast ultrasound demonstrates at the 2 o'clock position, approximately 5 cm from the nipple, a 4 x 4 x 4 mm cyst with some dependent calcifications and debris. No internal vascularity was identified. There is some increased through-sound transmission present. Recommend 6 month follow-up left breast ultrasound. Results are discussed with the patient at time of visit. US/US breast LT limited IMPRESSION: Circumscribed density with calcifications appears to correspond to a left breast complex cyst with dependent debris and calcifications. Six-month follow-up examination recommended. ASSESSMENT: BI-RADS 3: Probably benign. RECOMMENDATION: Diagnostic mammography in 6 months. This patient's information was entered into a reminder system with a target due date for their next mammogram.
== END 2022-05-22 13:24 | disposition home or self-care (01) ==
LOC: HO.MAMMO 13:23
PROVIDERS: PCP Internal Medicine; Visit Provider Internal Medicine
DX: R92.2 Inconclusive mammogram (principal)
CPT/HCPCS: 76642; 77065

== ENCOUNTER 2022-05-29 11:32 | Outpatient (REF) | payer MEDICARE, SELFPAY ==
[2022-05-29 14:08] LABS: Estimated Average Glucose 117 mg/dL; Hemoglobin A1c % 5.7 %
[2022-05-29 14:37] LABS: Anion Gap 11 (12-20); Blood Urea Nitrogen 9 mg/dL (9-16); Calcium 9.6 mg/dL (8.4-10.2); Carbon Dioxide 33 mmol/L (22-29); Chloride 100 mmol/L (96-108); Estimated Glomerular Filt Rate > 60; Glucose Random 112 mg/dL (60-115); Potassium 3.8 mmol/L (3.3-5.1); Sodium 140 mmol/L (135-145)
== END 2022-05-29 11:33 | disposition home or self-care (01) ==
LOC: HO.10HDL 11:32
PROVIDERS: Visit Provider Internal Medicine
DX: I10 Essential (primary) hypertension (principal); R73.03 Prediabetes
CPT/HCPCS: 36415; 80048; 83036

== ENCOUNTER 2022-12-04 11:47 | Outpatient (REF) | payer MEDICARE, SELFPAY ==
--- NOTE | ~2022-12-04 | XR_ITS ---
EXAMINATION: XR CHEST CLINICAL INFORMATION: Unexplained weight loss COMPARISON: 10/02/2012 TECHNIQUE: 2 views of the chest were obtained. FINDINGS: No significant abnormality is noted involving the heart, lungs, mediastinum, bony thorax or soft tissues. There is small hiatal hernia. XR/XR chest 2V IMPRESSION: Unremarkable examination
[2022-12-04 13:24] LABS: MANUAL DIFF FLAG NO
[2022-12-04 13:39] LABS: Basophils Absolute Auto 0.1 X10*3/uL (0.0-0.2); Basophils Percent Auto 1.3 % (0-2); Eosinophils Absolute Auto 0.4 X10*3/uL (0.0-0.4); Eosinophils Percent Auto 4.2 % (0-4); Hematocrit 42.1 % (37.0-47.0); Hemoglobin 13.9 g/dl (12.0-16.0); Imm Gran Abs Auto 0.03 X10*3/uL (0.00-0.03); Imm Gran Pct Auto 0.3 % (0.0-0.4); Lymphocytes Absolute Auto 1.9 X10*3/uL (1.2-4.9); Lymphocytes Percent Auto 21.7 % (20-40); Mean Corpuscular Hemoglobin 30.8 pg (27.0-33.0); Mean Corpuscular Volume 93.1 fL (80.0-98.0); Mean Platelet Volume 10.6 fL (9.4-12.3); Monocytes Percent Auto 12.1 % (2-11); Neutrophils Absolute Auto 5.2 x10*3/uL (2.0-8.3); Neutrophils Percent Auto 60.4 % (45-73); Platelet Count 426 X10*3/uL (160-400); Red Blood Count 4.52 X10*6/uL (4.20-5.50); White Blood Count 8.6 X10*3/uL (4.8-10.8)
[2022-12-04 13:51] LABS: Alanine Aminotransferase 18 U/L (0-31); Albumin Level 4.4 g/dL (3.5-5.0); Alkaline Phosphatase 85 U/L (39-117); Anion Gap 12 (12-20); Aspartate Amino Transferase 20 U/L (5-31); Bilirubin Total 0.5 mg/dL (0.0-1.0); Blood Urea Nitrogen 10 mg/dL (9-16); C Reactive Protein 0.31 mg/dL (< or = 0.50); Calcium 9.7 mg/dL (8.4-10.2); Carbon Dioxide 33 mmol/L (22-29); Chloride 100 mmol/L (96-108); Estimated Glomerular Filt Rate > 60; Glucose Random 108 mg/dL (60-115); Potassium 3.9 mmol/L (3.3-5.1); Sodium 141 mmol/L (135-145); Total Protein 7.9 g/dL (6.5-8.0)
[2022-12-04 14:14] LABS: Thyroid Stimulating Hormone 1.44 uIU/mL (0.32-4.0); Vitamin B12 627 pg/mL (200-900)
== END 2022-12-04 11:48 | disposition home or self-care (01) ==
LOC: HO.10HDL 11:47
PROVIDERS: Visit Provider Internal Medicine
DX: R63.4 Abnormal weight loss (principal); I10 Essential (primary) hypertension; J31.0 Chronic rhinitis
CPT/HCPCS: 36415; 71046; 80053; 82607; 84439; 84443; 85025; 86140

== ENCOUNTER 2022-12-09 14:56 | Outpatient (REF) | payer MEDICARE, SELFPAY ==
--- NOTE | ~2022-12-09 | US_ITS ---
EXAMINATION: US DIAGNOSTIC ULTRASOUND BREAST, LEFT CLINICAL INFORMATION: Patient presents for recommended short interval sonographic follow-up of a complicated cyst of the left breast at 2:00 5 cm from the nipple. This finding was detected on mammography and sonography on 05/22/2022 at which time it measured 4 mm x 4 mm x 3 mm. COMPARISON: Sonography and mammography from 05/22/2022. TECHNIQUE: Ultrasound of the breast is performed with real-time kam scale imaging and color Doppler. FINDINGS: In the 2:00 position of the left breast, 5 cm from nipple, there is an unchanged, 4 mm x 4 mm x 3 mm complicated cyst. This appears to contain calcium which does not shadow. It does not appear suspicious at this time and has not changed since the prior study. Nonetheless, short interval six-month follow-up sonography is advised to ensure lack of significant change. Results are discussed with the patient at time of visit. US/US breast LT limited mamm only IMPRESSION: Unchanged 4 mm minimally complicated cyst 2:00 position of the left breast for which continued short interval sonography is advised to document lack of significant change. This should occur in 6 months. ASSESSMENT: BI-RADS BI-RADS 3 RECOMMENDATION: Left breast diagnostic sonography advised in 6 months. At that time, the routine annual mammography screening mammogram will be due. This patient's information was entered into a reminder system with a target due date for their next mammogram.
== END 2022-12-09 14:57 | disposition home or self-care (01) ==
LOC: HO.MAMMO 14:56
PROVIDERS: PCP Internal Medicine; Visit Provider Internal Medicine
DX: N60.02 Solitary cyst of left breast (principal)
CPT/HCPCS: 76642

== ENCOUNTER → 2022-12-09 15:00 | Outpatient (BNV) | payer MEDICARE, SELFPAY | PROVIDERS: PCP Internal Medicine; Visit Provider Radiology Diagnostic Radiology | DX: N60.02 Solitary cyst of left breast (principal) | CPT/HCPCS: 76642 ==

== ENCOUNTER 2023-03-25 08:34 | Outpatient (REF) | payer MEDICARE, SELFPAY ==
[2023-03-25 11:44] LABS: MANUAL DIFF FLAG NO
[2023-03-25 12:06] LABS: Alanine Aminotransferase 18 U/L (0-31); Albumin Level 4.4 g/dL (3.5-5.0); Alkaline Phosphatase 77 U/L (39-117); Anion Gap 13 (12-20); Aspartate Amino Transferase 21 U/L (5-31); Bilirubin Total 0.7 mg/dL (0.0-1.0); Blood Urea Nitrogen 11 mg/dL (9-16); Calcium 9.6 mg/dL (8.4-10.2); Carbon Dioxide 27 mmol/L (22-29); Chloride 104 mmol/L (96-108); Cholesterol 249 mg/dL (<200); Estimated Glomerular Filt Rate > 60; Glucose Fasting 115 mg/dL (60-99); HDL Cholesterol 50 mg/dL (>40); LDL Cholesterol Calculated 167 mg/dL (<100); Potassium 3.3 mmol/L (3.3-5.1); Sodium 141 mmol/L (135-145); Triglycerides 162 mg/dL (<150)
[2023-03-25 12:16] LABS: Basophils Absolute Auto 0.1 X10*3/uL (0.0-0.2); Basophils Percent Auto 1.7 % (0-2); Eosinophils Absolute Auto 0.2 X10*3/uL (0.0-0.4); Eosinophils Percent Auto 3.6 % (0-4); Hematocrit 43.2 % (37.0-47.0); Hemoglobin 14.2 g/dl (12.0-16.0); Imm Gran Abs Auto 0.02 X10*3/uL (0.00-0.03); Imm Gran Pct Auto 0.3 % (0.0-0.4); Lymphocytes Absolute Auto 1.5 X10*3/uL (1.2-4.9); Lymphocytes Percent Auto 23.6 % (20-40); Mean Corpuscular HGB Conc 32.9 g/dl (31.0-35.0); Mean Corpuscular Hemoglobin 31.1 pg (27.0-33.0); Mean Corpuscular Volume 94.7 fL (80.0-98.0); Monocytes Absolute Auto 0.6 X10*3/uL (0.1-1.2); Monocytes Percent Auto 9.5 % (2-11); Neutrophils Absolute Auto 3.9 x10*3/uL (2.0-8.3); Neutrophils Percent Auto 61.3 % (45-73); Platelet Count 408 X10*3/uL (160-400); Red Blood Count 4.56 X10*6/uL (4.20-5.50); Red Cell Distribution Width 12.8 % (11.0-16.0); White Blood Count 6.4 X10*3/uL (4.8-10.8)
== END 2023-03-25 08:35 | disposition home or self-care (01) ==
LOC: HO.HMGCLDS 08:34
PROVIDERS: PCP Internal Medicine; Visit Provider Internal Medicine
DX: I10 Essential (primary) hypertension (principal); J45.909 Unspecified asthma, uncomplicated; E78.00 Pure hypercholesterolemia, unspecified; K21.9 Gastro-esophageal reflux disease without esophagitis; K57.90 Diverticulosis of intestine, part unspecified, without perforation or abscess without bleeding
CPT/HCPCS: 36415; 80053; 80061; 85025

== ENCOUNTER 2023-04-17 09:44 | Outpatient (REF) | payer MEDICARE, SELFPAY ==
--- NOTE | ~2023-04-17 | MM_ITS ---
EXAMINATION: BONE DENSITOMETRY CLINICAL INDICATION: Asymptomatic menopausal state. COMPARISON: Previous BD dated 11/26/2010 and baseline BD dated 12/29/2006. TECHNIQUE: Using a [employer] DXA System (software version: 13.1) manufactured by [employer], dual-energy x-ray absorptiometry was performed of the lumbar spine and left hip. The images are of good technical quality. Summary results are attached. FINDINGS: LEFT FEMUR, NECK: Current: BMD 0.784 g/cm2, Z-score 0.3, T-score -1.8, osteopenia. Prior: BMD 0.880 g/cm2. Baseline: BMD 0.890 g/cm2. LEFT FEMUR, TOTAL: Current: BMD 0.932 g/cm2, Z-score 1.4, T-score -0.6, normal, 9.5% decrease from previous, 13.8% decrease from baseline (<5% change is not significant). Prior: BMD 1.030 g/cm2. Baseline: BMD 1.081 g/cm2. AP SPINE L1-L4: Current: BMD 1.228 g/cm2, Z-score 2.2, T-score 0.4, normal, 7.3% increase from previous, 6.6% increase from baseline (<5% change is not significant). Prior: BMD 1.144 g/cm2. Baseline: BMD 1.152 g/cm2. IDENTIFIED RISK FACTORS: Menopause, osteoporosis, thiazide. HISTORY OF FRACTURE: None listed. MEDICATIONS: Multivitamin. MM/XR DEXA axial skeleton IMPRESSION: 1. DIAGNOSIS: Osteopenia based on the lowest T-score value of -1.8 in the femoral neck applying World Health Organization criteria. 2. 10-YEAR FRACTURE RISK PREDICTION, FRAX: Major osteoporotic fracture (clinical spine, forearm, hip or shoulder) 14.4%. Hip fracture 3.9%. 3. Treatment Recommendations: NOF guidelines recommend consideration for treatment in postmenopausal women and men age 50 and older presenting with the following: -A hip or vertebral (clinical or morphometric) fracture. -T-score less than or equal to -2.5 at the femoral neck or spine after appropriate evaluation to exclude secondary causes. -Low bone mass at the hip or spine and a 10-year fracture probability by FRAX of greater than or equal to 3% for hip fracture or greater than or equal to 20% for major osteoporotic fracture based on the [place] adapted WHO algorithm. 4. Other Recommendations: All treatment decisions require clinical judgment and consideration of individual patient factors, including patient preferences, comorbidities, previous drug use, risk factors not captured in the FRAX model (e.g. frailty, falls, vitamin D deficiency, increased bone turnover, interval significant decline in bone density) and possible under or overestimation of fracture risk by FRAX. Additional medical evaluation for secondary cause of low bone mineral density may be appropriate. FUTURE SCAN RECOMMENDATION: People with diagnosed cases of osteoporosis or at high risk for fracture should have regular bone mineral density tests. For patients eligible for Medicare, routine testing is allowed once every 2 years. The testing frequency can be increased to one year for patients who have rapidly progressing disease, those who are receiving or discontinuing medical therapy to restore bone mass, or have additional risk factors.
== END 2023-04-17 09:45 | disposition home or self-care (01) ==
LOC: HO.MAMMO 09:44
PROVIDERS: PCP Internal Medicine; Visit Provider Internal Medicine
DX: Z13.820 Encounter for screening for osteoporosis (principal); Z78.0 Asymptomatic menopausal state
CPT/HCPCS: 77080

== ENCOUNTER 2023-06-19 14:15 | Outpatient (REF) | payer MEDICARE, SELFPAY ==
--- NOTE | ~2023-06-19 | US_ITS ---
EXAMINATION: MM DIAGNOSTIC DIGITAL BREAST TOMOSYNTHESIS, BILATERAL US BREAST LIMITED, LEFT MAMMOGRAPHY: CLINICAL INFORMATION: Patient due for bilateral screening. Also, follow-up minimally complicated cyst left breast 2:00 axis, 5 cm from the nipple (to establish one-year stability). COMPARISON: Mammography: 05/22/2022, 04/11/2022 (BI-RADS 0), and studies dating back to 01/25/2016. TECHNIQUE: Digital breast tomosynthesis is performed in both the craniocaudal and mediolateral oblique views along with computer-aided detection (CAD). Synthesized 2D images are generated from the tomosynthesis. FINDINGS: There are scattered areas of fibroglandular density (ACR BI-RADS breast composition Category b). There are benign dystrophic calcifications, benign vascular calcifications, and benign secretory calcifications in both breasts. There is a biopsy clip in the 9:00 axis of the right breast, mid to posterior one third. There is a similar circumscribed oval mass measuring 3 mm with associated microcalcifications in the anterolateral left breast approximately 4.5 cm from the nipple. This will be evaluated with ultrasound. No suspicious masses or areas of architectural distortion in either breast. No skin or axillary abnormalities. ULTRASOUND: CLINICAL INFORMATION: Evaluate complicated cyst left breast 2:00 axis for one-year stability. COMPARISON: 12/09/2022, 05/22/2022. TECHNIQUE: Targeted sonographic evaluation was performed using a high frequency linear transducer. Attention was given to the left upper outer quadrant in the region of complicated cyst. Selected archived documentation. FINDINGS: LEFT BREAST: There is a stable subtle oval minimally complicated cyst measuring 3 x 3 x 3 mm, with an immediately abutting punctate rounded calcifications. This appears overall completely unchanged in morphology, and minimally decreased in size, previously measuring 4 x 4 x 3 mm. There is good through transmission. There is no associated color Doppler flow, or abutting parenchymal changes. This remains probably benign. Recommend 1 year targeted left breast ultrasound follow-up to ensure stability. No additional abnormalities identified in the upper outer quadrant of the left breast. US/US breast LT limited mamm only IMPRESSION: There are no findings in either breast suspicious for malignancy. There are benign findings both breasts. There is a stable complicated cyst in the left breast 2:00 axis, 5 cm from the nipple, measuring a stable 3 x 2 x 3 mm. 1 year follow-up targeted left breast ultrasound recommended to ensure stability, to establish a two-year stability and benignity. OVERALL ASSESSMENT: Mammography: BI-RADS 3 - Probably benign finding(s) - 12 month follow-up suggested Ultrasound: BI-RADS 3 - Probably benign finding(s) - 12 month follow-up suggested RECOMMENDATION: 12 month diagnostic follow up Results were provided to the patient at time of visit by the technologist. This patient's information was entered into a reminder system with a target due date for their next mammogram.
== END 2023-06-19 14:16 | disposition home or self-care (01) ==
LOC: HO.MAMMO 14:15
PROVIDERS: PCP Internal Medicine; Visit Provider Internal Medicine
DX: R92.2 Inconclusive mammogram (principal)
CPT/HCPCS: 76642; 77062; 77066

== ENCOUNTER → 2023-06-19 15:00 | Outpatient (BNV) | payer MEDICARE, SELFPAY | PROVIDERS: PCP Internal Medicine; Visit Provider Radiology Diagnostic Radiology | DX: N63.21 Unspecified lump in the left breast, upper outer quadrant (principal) | CPT/HCPCS: 76642; 77066; G0279 ==

== ENCOUNTER 2023-07-08 13:45 | Outpatient (REF) | payer MEDICARE, SELFPAY ==
[2023-07-08 15:53] LABS: Influenza A PCR NEGATIVE (Negative); Influenza B PCR NEGATIVE (Negative); Resp Syncy Virus RNA Qual PCR NEGATIVE (Negative); SARS COV2 PCR INHOUSE POSITIVE (Negative)
== END 2023-07-08 13:46 | disposition home or self-care (01) ==
LOC: HO.LNP 13:45
PROVIDERS: Visit Provider Internal Medicine
DX: Z11.52 Encounter for screening for COVID-19 (principal); Z20.822 Contact with and (suspected) exposure to COVID-19; R05.9 Cough, unspecified; R50.9 Fever, unspecified
CPT/HCPCS: 0241U

== ENCOUNTER 2023-08-01 09:18 | Outpatient (REF) | payer MEDICARE, SELFPAY ==
[2023-08-01 11:31] LABS: Vitamin B12 550 pg/mL (200-900)
== END 2023-08-01 09:19 | disposition home or self-care (01) ==
LOC: HO.HMGCLDS 09:18
PROVIDERS: PCP Internal Medicine; Visit Provider Psychiatry & Neurology Neurology
DX: G30.9 Alzheimer's disease, unspecified (principal)
CPT/HCPCS: 36415; 82607

== ENCOUNTER 2024-02-09 17:27 | Emergency (ER) | payer MEDICARE, SELFPAY ==
--- NOTE | 2024-02-09 | ECG_ITS ---
Test Reason : SYNCOPE Blood Pressure : / mmHG Vent. Rate : 078 BPM Atrial Rate : 078 BPM P-R Int : 134 ms QRS Dur : 132 ms QT Int : 430 ms P-R-T Axes : 016 -17 122 degrees QTc Int : 490 ms Normal sinus rhythm Left bundle branch block Abnormal ECG When compared with ECG of 14-DEC-2020 21:55, T wave inversion less evident in Lateral leads Referred By: Alem Mike Electronically Signed By:SHAZIA OROZCO
--- NOTE | ~2024-02-09 | CT_ITS ---
EXAMINATION: CT ABDOMEN AND PELVIS WITH CONTRAST CLINICAL INFORMATION: Vomiting and diarrhea with question of diverticulitis COMPARISON: CT abdomen pelvis 12/14/2020 TECHNIQUE: Multidetector volumetric images were obtained from the superior aspect of the liver through the pubic symphysis following administration 85 mL of Omnipaque 350 intravenous contrast. Sagittal and coronal reformatted images were obtained on the technologist's workstation. Oral contrast: No This CT examination was performed using dose optimization techniques as appropriate, variously including the following: *Automated exposure control *Adjustment of mA and/or kV according to patient size (this includes techniques or standardized protocols for targeted exams where dose is matched to indication/reason for exam; i.e. extremities or head) *Use of iterative reconstruction technique DLP: 485 mGy-cm FINDINGS: LUNG BASES: The visualized lung bases are unremarkable. LIVER, GALLBLADDER, AND BILIARY TREE: The liver is normal in size, shape, and attenuation. No focal hepatic lesion or biliary ductal dilatation is present. There is a 1 cm x 0.6 cm x 0.8 cm mass at the gallbladder fundus. The gallbladder is otherwise unremarkable with no evidence of radiopaque gallstones or obvious pericholecystic inflammatory changes. PANCREAS: Unremarkable. SPLEEN: Unremarkable. ADRENAL GLANDS: Unremarkable. KIDNEYS AND URETERS: The kidneys are normal in size, shape, and attenuation. A small focal scar is present at the lower pole of the left kidney. No hydronephrosis, hydroureter, or calculi seen. No perinephric stranding. Multiple left-sided benign Bosniak class I renal cysts are noted which require no additional imaging or follow-up. No solid renal masses are seen. BLADDER: Unremarkable. GASTROINTESTINAL TRACT: Moderate sized hiatal hernia is present . Again seen is marked thickening of the sigmoid with colonic diverticula. There is one large diverticula with inflammatory changes around it and this is consistent with acute uncomplicated diverticulitis in the correct clinical setting without extraluminal air or drainable fluid collection. The small and large bowel are otherwise unremarkable. The appendix is unremarkable. ABDOMINAL WALL: No significant hernia is appreciated. LYMPH NODES: There is increasing sized mass at the root of the small bowel mesentery measuring 3.1 x 1.8 x 3.4 cm with irregular central calcification. Differential diagnosis would include sclerosing mesenteritis and carcinoid. There is some karma changes in the mesentery with some small lymph nodes. No mesenteric lymphadenopathy. VASCULAR: Unremarkable. PELVIC VISCERA: Unremarkable. OSSEOUS STRUCTURES: Unremarkable. Degenerative changes are present. CT/CT abdomen pelvis w IV con IMPRESSION: 1. Acute uncomplicated sigmoid diverticulitis. 2. Increasing size of mass at the root of the small bowel mesentery with central calcification. Differential diagnosis would include sclerosing mesenteritis and carcinoid. 3. Other incidental findings as described above including a 1 cm mass in the gallbladder fundus. Ultrasound is recommended for further evaluation. Fleischner guidelines were followed. Electronically signed by: Eric Whitten MD 02/09/2024 10:50 PM EDT
[2024-02-09 17:58] VITALS: BP 148/46; BP 159/85; PULSE 61; PULSE 72; RESP 18; TEMP 36.4; O2SAT 100; O2SAT 97; BMI 27.3
[2024-02-09 19:17] VITALS: BP 175/54; PULSE 84; RESP 22; TEMP 36.4; O2SAT 100
[2024-02-09 19:35] LABS: Influenza A PCR NEGATIVE (Negative); Influenza B PCR NEGATIVE (Negative); Resp Syncy Virus RNA Qual PCR NEGATIVE (Negative); SARS COV2 PCR INHOUSE NEGATIVE (Negative)
[2024-02-09 20:07] LABS: Basophils Absolute Auto 0.2 X10*3/uL (0.0-0.2); Basophils Percent Auto 0.6 % (0-2); Eosinophils Percent Auto 0.1 % (0-4); Hematocrit 43.7 % (37.0-47.0); Hemoglobin 14.7 g/dl (12.0-16.0); Imm Gran Abs Auto 0.17 X10*3/uL (0.00-0.03); Imm Gran Pct Auto 0.7 % (0.0-0.4); Lymphocytes Absolute Auto 0.9 X10*3/uL (1.2-4.9); Lymphocytes Percent Auto 3.8 % (20-40); Mean Corpuscular HGB Conc 33.6 g/dl (31.0-35.0); Mean Corpuscular Hemoglobin 30.9 pg (27.0-33.0); Mean Platelet Volume 9.6 fL (9.4-12.3); Monocytes Absolute Auto 2.9 X10*3/uL (0.1-1.2); Monocytes Percent Auto 11.7 % (2-11); Neutrophils Absolute Auto 20.4 x10*3/uL (2.0-8.3); Neutrophils Percent Auto 83.1 % (45-73); Platelet Count 302 X10*3/uL (160-400); Red Blood Count 4.75 X10*6/uL (4.20-5.50); Red Cell Distribution Width 12.8 % (11.0-16.0); SCAN SMEAR FLAG 1
[2024-02-09 20:13] LABS: MANUAL DIFF FLAG SCAN
[2024-02-09] MEDS: ondansetron HCL 4 MG/2 ML VIAL IVPUSH (20:16)
[2024-02-09] MEDS: 0.9 % Sodium Chloride 500 ML IV (20:18)
[2024-02-09 20:26] LABS: SLIDE REVIEW VERIFIED; White Blood Count 24.6 X10*3/uL (4.8-10.8)
[2024-02-09 20:29] LABS: Appearance Urine Clear; Color Urine Dark Yellow; Glucose Urine UA Negative (Negative); Leukocyte Esterase Urine Small (1+) (Negative); Nitrite Urine Negative (Negative); Specific Gravity - Urine 1.015 (1.005-1.025); UMIC TRIGGER UACC YES; Urine Blood Negative (Negative); Urine Ketones Trace mg/dL (Negative); Urine Protein 30 (1+) mg/dL (Neg-Trace)
[2024-02-09 20:46] LABS: Bacteria Urine None Seen (None Seen); Hyaline Casts Urine >20 /LPF (0-2); RBC Urine 0-2 /HPF (0-2); UACC Culture Trigger YES; WBC Urine 0-5 /HPF (0-5)
[2024-02-09 20:52] LABS: Alanine Aminotransferase 15 U/L (0-31); Albumin Level 4.3 g/dL (3.5-5.0); Alkaline Phosphatase 62 U/L (39-117); Anion Gap 16 (12-20); Aspartate Amino Transferase 20 U/L (5-31); Bilirubin Total 0.7 mg/dL (0.0-1.0); Blood Urea Nitrogen 16 mg/dL (9-16); Calcium 10.2 mg/dL (8.4-10.2); Carbon Dioxide 23 mmol/L (22-29); Chloride 107 mmol/L (96-108); Creatinine Clr Calc Pharmacy 41.7; Estimated Glomerular Filt Rate > 60; Glucose Random 101 mg/dL (60-115); Lipase 20 U/L (8-78); Magnesium 2.6 mg/dL (1.6-2.6); Potassium 3.6 mmol/L (3.3-5.1); Sodium 142 mmol/L (135-145); Total Protein 7.7 g/dL (6.5-8.0)
[2024-02-09] MEDS: iohexoL 350 MG/ML 100 ML INFUS..BTL 85 ML IV (21:17)
[2024-02-09 22:45] VITALS: BP 181/50; PULSE 85; RESP 16; TEMP 37; O2SAT 96
--- NOTE | 2024-02-09 22:54 | ED_ITS ---
HPI - Nausea/Vomiting/Diarrhea General Chief complaint: Nausea/Vomiting/Diarrhea Stated complaint: d/n faint, weakness Time Seen by Provider: 02/09/24 18:19 History of Present Illness ED Provider: Alem Mike PA-C HPI Narrative: 79-year-old female with a history of ulcerative colitis, hypertension, hyperlipidemia, mild dementia, presents with abdominal pain. Patient is here with her daughter, the patient developed left lower quadrant discomfort earlier today with associated nausea vomiting and diarrhea. Denies fever. Denies sick contacts with same symptoms. Patient is a happened recently hospitalized, no recent travel. Associated nausea: Yes Related Data Home Medications ?Medication ?Instructions ?Recorded ?Confirmed albuterol sulfate 90 mcg/actuation 2 puff inhalation QID PRN 12/01/20 12/15/20 aerosol inhaler (Ventolin HFA) Shortness Of Breath Or Wheezing atorvastatin 10 mg tablet 1 tab PO BEDTIME 12/01/20 12/15/20 furosemide 40 mg tablet 1 tab PO DAILY 12/01/20 12/15/20 lisinopril 5 mg tablet 1 tab PO DAILY 12/01/20 12/15/20 metoprolol succinate 25 mg 1 tab PO DAILY 12/01/20 12/15/20 tablet,extended release 24 hr nifedipine 30 mg tablet,extended 1 tab PO DAILY 12/01/20 12/15/20 release 24 hr omeprazole 10 mg capsule,delayed 1 cap PO DAILY 12/01/20 12/15/20 release ascorbic acid (vitamin C) 1,000 mg 1,000 mg PO DAILY 12/15/20 12/15/20 tablet (Vitamin C) vitamin B complex 1 tab PO DAILY 12/15/20 12/15/20 Previous Rx's ?Medication ?Instructions ?Recorded cefuroxime axetil 500 mg tablet 500 mg PO BID 7 days #14 tabs 12/16/20 metronidazole 500 mg tablet 500 mg PO TID #15 tabs 12/16/20 (Flagyl) levofloxacin 500 mg tablet 500 mg PO DAILY #10 tabs 02/10/24 metronidazole 500 mg tablet 500 mg PO Q8H #30 tabs 02/10/24 Allergies Allergy/AdvReac Type Severity Reaction Status Date / Time codeine [CODEINE] Allergy Severe DIFFICULTY Verified 02/09/24 18:05 BREATHING meperidine [Demerol] Allergy Unknown Nausea and Verified 02/09/24 18:05 Vomiting From DARVON Allergy Severe SHORTNESS Uncoded 12/14/20 20:47 OF BREATH Codeine Phosphate Allergy Unknown Nausea and Uncoded 12/14/20 20:47 Vomiting Darvon Allergy Unknown Shortness Uncoded 12/14/20 20:47 of Breath Review of Systems 2 Review of Systems: No all other systems are reviewed and are negative Constitutional: Constitutional: Denies fever(s) Cardiovascular: Cardiovascular: Denies chest pain and Denies dyspnea Respiratory: Respiratory: Denies dyspnea Gastrointestinal: Gastrointestinal: Reports abdominal pain, Reports diarrhea, Reports nausea and Reports vomiting PMF Past Medical History Attestation statement: The following information was validated with the patient. Medical History Arthritis Asthma GERD (gastroesophageal reflux disease) Glucose intolerance HLD (hyperlipidemia) HTN (hypertension) Surgical History H/O dilation and curettage H/O tubal ligation Social History Social History Household Members: None Housing: House Do you presently have visiting nurse or other home services: No Patient Tobacco Use Status: Never used Tobacco Smoked in Last 30 Days: No Second Hand Smoke Exposure: No Use of substances other than those prescribed or required for medical reasons: No Advance Directives: No Advance Directives Information Provided: No Do you have a plan to hurt others: No Plan service: No Current occupational status: retired Physical Exam 2 Vital Signs: Vital Signs: Last Vital Signs Temp 98.6 F 02/09/24 22:45 Pulse 85 02/09/24 22:45 Resp 16 02/09/24 22:45 BP 181/50 H 02/09/24 22:45 Pulse Ox 96 02/09/24 22:45 O2 Del Method Room Air 02/09/24 22:45 BMI result Body Mass Index 27.3 Const: Other: Alert, well in appearance Orientation/consciousness: patient oriented x3 Resp: Effort & Inspection: normal respiratory effort Cardio: Other: Normal peripheral perfusion GI: Other: Abdomen is soft, nondistended, mild to moderate tenderness to palpation in left lower quadrant with mild voluntary guarding Skin: Other: Warm dry no rash Neuro: General: patient oriented x3, CN's II-XI intact bilaterally and normal sensation to monofilament Psych: Other: Calm cooperative Course Reevaluation(s) Reevaluation #1: P.o. challenge down Reevaluation #2: Patient ate oatmeal with applesauce and feels fine ready for discharge Medications Administered Discontinued Medications Generic Name Dose Route Start Last Admin Trade Name Marino PRN Reason Stop Dose Admin Sodium Chloride 500 mls @ 500 mls/hr 02/09/24 18:39 02/09/24 21:21 Ns IV 02/09/24 19:38 Infused .Q1H ONE Infusion Iohexol 85 ml 02/09/24 21:16 02/09/24 21:17 Iohexol 350 Mg/Ml 100 Ml Infus..Btl IV 02/09/24 21:17 85 ml ONCE ONE Administration Ondansetron HCl 4 mg 02/09/24 18:39 02/09/24 20:16 Ondansetron Hcl 4 Mg/2 Ml Vial IVPUSH 02/09/24 18:40 4 mg ONCE ONE Administration Medical Decision Making Medical Decision Making MDM Narrative: 79-year-old female with a history of ulcerative colitis, hypertension, hyperlipidemia, mild dementia, presents with abdominal pain. Patient is here with her daughter, the patient developed left lower quadrant discomfort earlier today with associated nausea vomiting and diarrhea. Denies fever. Denies sick contacts with same symptoms. Patient is a happened recently hospitalized, no recent travel. Problem: Age, ulcerative colitis, mild dementia History: Per patient and the daughter I have considered the following differential diagnoses: Exacerbation of ulcerative colitis, diverticulitis, viral gastroenteritis, C diff, traveler's diarrhea Plan: Given focal left lower quadrant discomfort, this is likely diverticulitis. To note, the patient is not having bloody bowel movements to suggest ulcerative colitis flare. She has not had sick contacts within the community, no preceding cough or cold symptoms to suggest viral gastroenteritis. She has not been in the hospital recently, to suggest a C diff, she has also had not recently traveled out of the country to suggest a traveler's diarrhea. We will be giving IV fluid, Zofran and obtaining a CT scan. I have independently reviewed the following tests: Labs: Significant leukocytosis with left shift, not anemic, no other electrolyte abnormalities noted CT abdomen and pelvis:CT ABDOMEN AND PELVIS WITH CONTRAST CLINICAL INFORMATION: Vomiting and diarrhea with question of diverticulitis COMPARISON: CT abdomen pelvis 12/14/2020 TECHNIQUE: Multidetector volumetric images were obtained from the superior aspect of the liver through the pubic symphysis following administration 85 mL of Omnipaque 350 intravenous contrast. Sagittal and coronal reformatted images were obtained on the technologist's workstation. Oral contrast: No This CT examination was performed using dose optimization techniques as appropriate, variously including the following: *Automated exposure control *Adjustment of mA and/or kV according to patient size (this includes techniques or standardized protocols for targeted exams where dose is matched to indication/reason for exam; i.e. extremities or head) *Use of iterative reconstruction technique DLP: 485 mGy-cm FINDINGS: LUNG BASES: The visualized lung bases are unremarkable. LIVER, GALLBLADDER, AND BILIARY TREE: The liver is normal in size, shape, and attenuation. No focal hepatic lesion or biliary ductal dilatation is present. There is a 1 cm x 0.6 cm x 0.8 cm mass at the gallbladder fundus. The gallbladder is otherwise unremarkable with no evidence of radiopaque gallstones or obvious pericholecystic inflammatory changes. PANCREAS: Unremarkable. SPLEEN: Unremarkable. ADRENAL GLANDS: Unremarkable. KIDNEYS AND URETERS: The kidneys are normal in size, shape, and attenuation. A small focal scar is present at the lower pole of the left kidney. No hydronephrosis, hydroureter, or calculi seen. No perinephric stranding. Multiple left-sided benign Bosniak class I renal cysts are noted which require no additional imaging or follow-up. No solid renal masses are seen. BLADDER: Unremarkable. GASTROINTESTINAL TRACT: Moderate sized hiatal hernia is present . Again seen is marked thickening of the sigmoid with colonic diverticula. There is one large diverticula with inflammatory changes around it and this is consistent with acute uncomplicated diverticulitis in the correct clinical setting without extraluminal air or drainable fluid collection. The small and large bowel are otherwise unremarkable. The appendix is unremarkable. ABDOMINAL WALL: No significant hernia is appreciated. LYMPH NODES: There is increasing sized mass at the root of the small bowel mesentery measuring 3.1 x 1.8 x 3.4 cm with irregular central calcification. Differential diagnosis would include sclerosing mesenteritis and carcinoid. There is some karma changes in the mesentery with some small lymph nodes. No mesenteric lymphadenopathy. VASCULAR: Unremarkable. PELVIC VISCERA: Unremarkable. OSSEOUS STRUCTURES: Unremarkable. Degenerative changes are present. CT/CT abdomen pelvis w IV con IMPRESSION: 1. Acute uncomplicated sigmoid diverticulitis. 2. Increasing size of mass at the root of the small bowel mesentery with central calcification. Differential diagnosis would include sclerosing mesenteritis and carcinoid. 3. Other incidental findings as described above including a 1 cm mass in the gallbladder fundus. Ultrasound is recommended for further evaluation. Fleischner guidelines were followed. Electronically signed by: Eric Whitten MD 02/09/2024 10:50 PM EDT RP Lab Data 02/09/24 20:01 02/09/24 20:32 Labs: Lab Results 02/09/24 02/09/24 02/09/24 Range/Units 18:52 20:01 20:20 WBC 24.6 H (4.8-10.8) X10*3/uL RBC 4.75 (4.20-5.50) X10*6/uL Hgb 14.7 (12.0-16.0) g/dl Hct 43.7 (37.0-47.0) % MCV 92.0 (80.0-98.0) fL MCH 30.9 (27.0-33.0) pg MCHC 33.6 (31.0-35.0) g/dl RDW 12.8 (11.0-16.0) % Plt Count 302 D (160-400) X10*3/uL MPV 9.6 (9.4-12.3) fL Immature Gran % (Auto) 0.7 H (0.0-0.4) % Neut % (Auto) 83.1 H (45-73) % Lymph % (Auto) 3.8 L (20-40) % [place] % (Auto) 11.7 H (2-11) % Eos % (Auto) 0.1 (0-4) % Baso % (Auto) 0.6 (0-2) % Lymph # (Auto) 0.9 L (1.2-4.9) X10*3/uL [place] # (Auto) 2.9 H (0.1-1.2) X10*3/uL Eos # (Auto) 0.0 (0.0-0.4) X10*3/uL Baso # (Auto) 0.2 (0.0-0.2) X10*3/uL Abs Immat Gran (auto) 0.17 H (0.00-0.03) X10*3/uL Absolute Neuts (auto) 20.4 H (2.0-8.3) x10*3/uL Absolute Nucleated RBC 0.000 (0.0-0.012) X10*3/uL Nucleated RBC % (auto) 0.0 (0.0-0.2) /100WBC Smear Tech's Comments VERIFIED Sodium (135-145) mmol/L Potassium (3.3-5.1) mmol/L Chloride (96-108) mmol/L Carbon Dioxide (22-29) mmol/L Anion Gap (12-20) BUN (9-16) mg/dL Creatinine (0.5-1.4) mg/dL Estim Creat Clear Calc Estimated GFR Random Glucose (60-115) mg/dL Calcium (8.4-10.2) mg/dL Magnesium (1.6-2.6) mg/dL Total Bilirubin (0.0-1.0) mg/dL AST (5-31) U/L ALT (0-31) U/L Alkaline Phosphatase (39-117) U/L Total Protein (6.5-8.0) g/dL Albumin (3.5-5.0) g/dL Lipase (8-78) U/L Urine Color Dark Yellow Urine Appearance Clear Urine pH 5.0 (5.0-9.0) Ur Specific [place] 1.015 (1.005-1.025) Urine Protein 30 (1+) H (Neg-Trace) mg/dL Urine Glucose (UA) Negative (Negative) mg/dL Urine Ketones Trace (Negative) mg/dL Urine Blood Negative (Negative) Urine Nitrite Negative (Negative) Ur Leukocyte Esterase Small (1+) H (Negative) Urine RBC 0-2 (0-2) /HPF Urine WBC 0-5 (0-5) /HPF Ur Squamous Epith Cells 3-5 (0-2) /HPF Urine Bacteria None Seen (None Seen) Hyaline Casts >20 (0-2) /LPF Influenza Type A (PCR) NEGATIVE (Negative) Influenza Type B (PCR) NEGATIVE (Negative) RSV RNA Qual (PCR) NEGATIVE (Negative) SARS-CoV-2 RNA (RT-PCR) NEGATIVE (Negative) 02/09/24 Range/Units 20:32 WBC (4.8-10.8) X10*3/uL RBC (4.20-5.50) X10*6/uL Hgb (12.0-16.0) g/dl Hct (37.0-47.0) % MCV (80.0-98.0) fL MCH (27.0-33.0) pg MCHC (31.0-35.0) g/dl RDW (11.0-16.0) % Plt Count (160-400) X10*3/uL MPV (9.4-12.3) fL Immature Gran % (Auto) (0.0-0.4) % Neut % (Auto) (45-73) % Lymph % (Auto) (20-40) % [place] % (Auto) (2-11) % Eos % (Auto) (0-4) % Baso % (Auto) (0-2) % Lymph # (Auto) (1.2-4.9) X10*3/uL [place] # (Auto) (0.1-1.2) X10*3/uL Eos # (Auto) (0.0-0.4) X10*3/uL Baso # (Auto) (0.0-0.2) X10*3/uL Abs Immat Gran (auto) (0.00-0.03) X10*3/uL Absolute Neuts (auto) (2.0-8.3) x10*3/uL Absolute Nucleated RBC (0.0-0.012) X10*3/uL Nucleated RBC % (auto) (0.0-0.2) /100WBC Smear Tech's Comments Sodium 142 (135-145) mmol/L Potassium 3.6 (3.3-5.1) mmol/L Chloride 107 (96-108) mmol/L Carbon Dioxide 23 (22-29) mmol/L Anion Gap 16 (12-20) BUN 16 (9-16) mg/dL Creatinine 0.84 (0.5-1.4) mg/dL Estim Creat Clear Calc 41.7 Estimated GFR > 60 Random Glucose 101 (60-115) mg/dL Calcium 10.2 D (8.4-10.2) mg/dL Magnesium 2.6 (1.6-2.6) mg/dL Total Bilirubin 0.7 (0.0-1.0) mg/dL AST 20 (5-31) U/L ALT 15 (0-31) U/L Alkaline Phosphatase 62 (39-117) U/L Total Protein 7.7 (6.5-8.0) g/dL Albumin 4.3 (3.5-5.0) g/dL Lipase 20 (8-78) U/L Urine Color Urine Appearance Urine pH (5.0-9.0) Ur Specific [place] (1.005-1.025) Urine Protein (Neg-Trace) mg/dL Urine Glucose (UA) (Negative) mg/dL Urine Ketones (Negative) mg/dL Urine Blood (Negative) Urine Nitrite (Negative) Ur Leukocyte Esterase (Negative) Urine RBC (0-2) /HPF Urine WBC (0-5) /HPF Ur Squamous Epith Cells (0-2) /HPF Urine Bacteria (None Seen) Hyaline Casts (0-2) /LPF Influenza Type A (PCR) (Negative) Influenza Type B (PCR) (Negative) RSV RNA Qual (PCR) (Negative) SARS-CoV-2 RNA (RT-PCR) (Negative) Discharge Plan Discharge Clinical Impression: Diverticulitis Patient Disposition: Home, Self-Care Instructions: Diverticulitis (ED), Diverticulitis Diet (ED) Additional Instructions: You were found to have diverticulitis on the CT scan. See home care instructions. Be sure to eat a bland diet. Take both antibiotics as directed. Call your primary care provider for an appointment to follow up within the next 3-5 days. You were also noted to have an incidental finding of a mass/calcified lymph node, within the lining of your organs, called the mesentery. This has been present since your prior CT scan from 2020. You should discuss the need for further intervention with your primary care provider, they may refer you to a certified ophthalmic technologist. Prescriptions: New levofloxacin 500 mg tablet 500 mg PO DAILY Qty: 10 0RF metronidazole 500 mg tablet 500 mg PO Q8H Qty: 30 0RF No Action nifedipine 30 mg tablet extended release 24hr 1 tab PO DAILY furosemide 40 mg tablet 1 tab PO DAILY atorvastatin 10 mg tablet 1 tab PO BEDTIME omeprazole 10 mg capsule,delayed release(DR/EC) 1 cap PO DAILY lisinopril 5 mg tablet 1 tab PO DAILY metoprolol succinate 25 mg tablet extended release 24 hr 1 tab PO DAILY albuterol sulfate [Ventolin HFA] 90 mcg/actuation HFA aerosol inhaler 2 puff inhalation QID PRN (Reason: Shortness Of Breath Or Wheezing) ascorbic acid (vitamin C) [Vitamin C] 1,000 mg Tablet 1,000 mg PO DAILY vitamin B complex Tablet 1 tab PO DAILY metronidazole [Flagyl] 500 mg tablet 500 mg PO TID Qty: 15 0RF cefuroxime axetil 500 mg tablet 500 mg PO BID 7 Days Qty: 14 0RF Print Language: Swedish
[2024-02-10] MEDS: metroNIDAZOLE 500 MG TABLET PO (00:16)
[2024-02-10] MEDS: levoFLOXacin 500 MG TABLET PO (00:16)
[2024-02-10 00:44] VITALS: BP 181/50; PULSE 85; RESP 16; TEMP 37; O2SAT 96
== END 2024-02-10 00:50 | disposition home or self-care (01) ==
PROVIDERS: Physician Assistant Medical; Emergency Provider Emergency Medicine; PCP Internal Medicine
DX: K57.32 Diverticulitis of large intestine without perforation or abscess without bleeding (principal); Z03.818 Encounter for observation for suspected exposure to other biological agents ruled out; J45.909 Unspecified asthma, uncomplicated; I10 Essential (primary) hypertension; E78.5 Hyperlipidemia, unspecified; Z79.02 Long term (current) use of antithrombotics/antiplatelets; Z79.899 Other long term (current) drug therapy
CPT/HCPCS: 0241U; 36415; 74177; 80053; 81001; 83690; 83735; 85025; 87086; 93005; 96361; 96374; 99284; 99285; J2405; Q9967

== ENCOUNTER 2024-04-02 08:22 | Outpatient (REF) | payer MEDICARE, SELFPAY ==
--- NOTE | ~2024-04-02 | US_ITS ---
EXAMINATION: US ABDOMEN COMPLETE CLINICAL INFORMATION: Abnormal CT scan of GI tract. COMPARISON: CT abdomen and pelvis 02/09/2024. TECHNIQUE: Real-time imaging of the abdominal viscera. FINDINGS: PANCREAS: Normal. ABDOMINAL AORTA: Atherosclerotic changes. No aneurysm. INFERIOR VENA CAVA: Visualized portions are normal. LIVER: Normal. The liver is normal in size. The liver contour is normal. Parenchymal echogenicity is normal. No focal hepatic lesion. There is no intrahepatic biliary duct dilatation seen. GALLBLADDER: There is a nonvascular region of thickening in the tip of the fundus measuring approximately 1.0 cm in diameter. This has a concave inferior border has an overall benign appearance. This most likely represents a focus of adenomyomatosis or an unusual polyp. MRI is scheduled for later today. Gallbladder is otherwise normal with no stones or sludge. No wall thickening or pericholecystic fluid. COMMON BILE DUCT: Normal in caliber measuring 0.4 cm in diameter. RIGHT KIDNEY: Normal. No hydronephrosis. No renal calculi or focal parenchymal lesions. The kidney measures 9.8 cm in maximum dimension. LEFT KIDNEY: There are a few subcentimeter simple cysts. No masses. No hydronephrosis or renal calculi. The kidney measures 10.2 cm in maximum dimension. SPLEEN: Normal. The spleen measures 7.1 cm in maximum dimension. FREE FLUID: None. US/US abdomen complete IMPRESSION: 1. Focus of thickening measuring up to 1.0 cm in the gallbladder fundus with with concave inferior border and no associated color Doppler flow. This would be a very unusual appearing mass of the gallbladder and is more likely focal adenomyomatosis of the fundus versus unusual appearance of sludge or polyp. Gallbladder otherwise normal. MRI is scheduled for later today. 2. Subcentimeter left kidney cysts. 3. Exam is otherwise normal. Electronically signed by: Eleazar Peraza MD 04/19/2024 11:54 AM EST
== END 2024-04-02 08:23 | disposition home or self-care (01) ==
LOC: HO.US 08:22
PROVIDERS: PCP Internal Medicine; Visit Provider Internal Medicine Gastroenterology
DX: Z13.89 Encounter for screening for other disorder (principal)
CPT/HCPCS: 76700

== ENCOUNTER → 2024-04-02 08:24 | Outpatient (BNV) | payer MEDICARE, SELFPAY | PROVIDERS: PCP Internal Medicine; Visit Provider Radiology Diagnostic Radiology | DX: K82.8 Other specified diseases of gallbladder (principal) | CPT/HCPCS: 74183; 76700 ==

== ENCOUNTER 2024-04-02 15:37 | Outpatient (REF) | payer MEDICARE, SELFPAY ==
--- NOTE | ~2024-04-02 | MR_ITS ---
EXAMINATION: MR ABDOMEN WITHOUT AND WITH CONTRAST CLINICAL INFORMATION: History of sigmoid colon diverticulitis with questionable lesion in the small bowel mesentery on prior CT dated February 09, 2024. COMPARISON: No priors. Correlated to CT dated February 09, 2024. TECHNIQUE: MR abdomen was performed without and with use of 5.5 mL intravenous gadolinium contrast. Postcontrast images are performed in multiphase dynamic sequences. Imaging was performed in 3 planes. No reported immediate complications FINDINGS: Submitted for interpretation on April 21, 2024. Limited by patient's breathing motion artifact. LIVER, GALLBLADDER, AND BILIARY TREE: Liver measures 14 cm. No focal mass. Portal veins, hepatic veins and intrahepatic portion of the IVC are patent. There is a 6 mm nonenhancing septated the cystic signal abnormality in the fundus of the gallbladder. No intrahepatic or extra hepatic biliary ductal dilatation. There are some septations in the gallbladder. PANCREAS: No focal mass. No peripancreatic fluid collection. No main pancreatic ductal dilatation. SPLEEN: 7 cm. No focal lesion. ADRENAL GLANDS: No nodular lesion. KIDNEYS AND URETERS: 1 cm nonenhancing fluid signal characteristic lesion at the corticomedullary junction midportion/lower pole left kidney. No gross renal mass. No hydronephrosis. GASTROINTESTINAL TRACT: Abundant stool within the large intestine. No intestinal obstruction pattern. Scattered diverticula throughout the ascending colon. No ascites. There is segmental wall thickening with enhancement involving the mid to distal sigmoid colon no fully evaluated. Numerous diverticula in the rectosigmoid colon. ABDOMINAL WALL: Small fat-containing umbilical hernia. LYMPH NODES: There is a cluster of 2.3 cm hypointense T1 and T2, heterogeneous mildly enhancing nonrestricted diffusion soft tissue signal in the mesenteric fat associated to the partially calcified soft tissue lesion detected on recent CT dated February 09, 2024. Prominent mesenteric lymph nodes. VASCULAR: No aneurysm or dissection, abdominal aorta. OSSEOUS STRUCTURES: Multilevel thoracolumbar spondylosis. MR/MR abdomen wo/w con IMPRESSION: Partially enhancing 2.3 cm soft tissue fullness in of the mesentery. Carcinoma cannot be entirely excluded. Consider nuclear scan exam. Septated gallbladder with a focal 6 mm cystic abnormality in the fundus. Simple cyst, left kidney. Electronically signed by: Mukul Joseph MD 04/21/2024 10:14 AM [facility] [place]
[2024-04-02] MEDS: gadobutroL 7.5 ML VIAL IVPUSH (17:40)
== END 2024-04-02 15:38 | disposition home or self-care (01) ==
LOC: HO.MRI 15:37
PROVIDERS: PCP Internal Medicine; Visit Provider Internal Medicine Gastroenterology
DX: R19.00 Intra-abdominal and pelvic swelling, mass and lump, unspecified site (principal); R93.5 Abnormal findings on diagnostic imaging of other abdominal regions, including retroperitoneum
CPT/HCPCS: 74183; 76700; A9585

== ENCOUNTER 2024-07-01 13:57 | Outpatient (REF) | payer MEDICARE, SELFPAY | END 2024-07-01 13:58 | disposition home or self-care (01) | LOC: HO.LAB 13:57 | PROVIDERS: PCP Internal Medicine | DX: Z13.89 Encounter for screening for other disorder (principal) | CPT/HCPCS: 99202 ==

== ENCOUNTER 2024-07-01 13:57 | Outpatient (AMB) | payer MEDICARE, SELFPAY ==
[2024-07-01 14:11] VITALS: BP 126/80; PULSE 72; TEMP 37.2; O2SAT 95; BMI 27.1
--- NOTE | 2024-07-01 14:11 | AM.OFFWIN_ITS ---
Intake Vital Signs 07/01/24 14:11 Height 4 ft 11 in Weight 134 lb BMI 27.1 BP 126/80 Blood Pressure Location Lt brachial Position Sitting Pulse 72 Pulse Source Pulse Oximeter Temp 99.0 F Temp Source Oral Pulse Oximetry (%) 95 Oxygen Delivery Method Room Air Intake Visit Reasons: EP cough, sob due to cough Intake Note: Patient here for cough and SOB that has been present for about 3-4 days. Patient Tobacco Use Status: Never used Tobacco Allergies codeine [CODEINE] Allergy (Severe, Verified 07/01/24 14:12) DIFFICULTY BREATHING meperidine [Demerol] Allergy (Unknown, Verified 07/01/24 14:12) Nausea and Vomiting From DARVON Allergy (Severe, Uncoded 07/01/24 14:12) SHORTNESS OF BREATH Codeine Phosphate Allergy (Unknown, Uncoded 07/01/24 14:12) Nausea and Vomiting Darvon Allergy (Unknown, Uncoded 07/01/24 14:12) Shortness of Breath Do you need a note to return to daycare/school/sports/work: No HPI HPI Comments History of Present Illness Details History - The patient is an 79-year-old female w ho is here with her daughter presenting with shortness of breath x 4 days. - She has been experiencing a persistent cough and shortness of breath over the past few days, which has increased in severity. - The patient has a known history of ast hma, which might be exacerbating her current respiratory symptoms. - There has been no substantial fever, w ith temperature noted at 99?F. A significant drop in oxygen saturation is related to increased respiratory effo rt. - The patient has taken Mucinex for two days, perceiving a loosening of the cough but with persistent respiratory distress. - Additional symptoms include headache a nd substantial fatigue, but no nausea, vomiting, or diarrhea. - The patient relies on Levalbut lien inhalers due to asthma history and reports a negative response to albuterol with heart racing and jittery feeling. Physical Exam General: Cooperative, healthy appearing, comfortable and no acute distress Orientation/consciousness: Patient oriented x3 Limitations: No limitations Head: Normal to inspection Ears: Hearing grossly normal bilaterally, external ears normal, TM's with fluid present, right > left Nose: Normal external nose present, Normal nares present and No nasal discharge present Face and sinus: Normal facial exam and Yes sinuses nontender Mouth: Normal oral and palatal mucosa present and moist mucous membranes Throat: Yes tonsils normal, Yes uvula midline. Posterior oropharynx erythema Eyes: Appearance normal, both eyes and all related structures Neck: Normal visual inspection Respiratory: Clear to auscultation bilaterally. Normal respiratory effort, able to speak in complete sentences, Actively coughing, no respiratory distress, not tachypneic, no tripod positioning and no use of accessory muscles Cardiovascular: Regular rate and rhythm. Normal S1 and S2 Skin: No rashes or lesions noted Neuro: Patient oriented x3 Extremities: Normal to inspection and Yes no clubbing, cyanosis or edema PFSH Medical History Arthritis Asthma GERD (gastroesophageal reflux disease) Glucose intolerance HLD (hyperlipidemia) HTN (hypertension) Surgical History H/O dilation and curettage H/O tubal ligation Social History Household Members: None Housing: House Do you presently have visiting nurse or other home services: No Patient Tobacco Use Status: Never used Tobacco Second Hand Smoke Exposure: No service: No Current occupational status: retired Review of Systems Const All systems reviewed & are unremarkable except as noted in HPI and below Physical Exam Vital Signs: Last Vital Signs Temp 99.0 F 07/01/24 14:11 Pulse 72 07/01/24 14:11 BP 126/80 07/01/24 14:11 Pulse Ox 92 07/01/24 14:11 Oxygen Delivery Method Room Air 07/01/24 14:11 BMI result Body Mass Index 27.1 Assessment & Plan Assessment & Plan (1) URI, acute: Code(s): J06.9 - Acute upper respiratory infection, unspecified Plan: The patient's current condition suggests a possible exacerbation of asthma or an acute viral respiratory infection. A chest X-ray and testing for influenza, COVID-19, and RSV have been ordered to determine the underlying cause of the respiratory symptoms. The patient has been started on Mucinex to help alleviate cough, and a new prescription for Levalbuterol will be issued to manage asthma- related breathing difficulties. Oxygen saturation is being monitored closely given the drop from baseline levels. Nutritional intake is emphasized, with a suggestion for options like chicken soup to counteract her decreased appetite and fatigue. The treatment plan is subject to revision based on the upcoming diagnostic results, and further steps will be taken accordingly. Levalbuterol not covered by insurance, will work on PA as albuterol makes her heart race and makes her jittery. Patient was informed and verbally consented to the use of an ambient scribe for clinic note documentation during this visit Orders: Orders SARS-CoV2/FLU/RSV Today J06.9 - Acute upper respiratory infection, unspecified XR chest 2V Today R05.9 - Cough, unspecified Medications: New levalbuterol tartrate 45 mcg/actuation 2 puffs inhalation Q4-6H PRN 15 grams 0RF shortness of breath Discontinued cefuroxime axetil Discontinued Reason: Patient Completed Course 500 mg PO BID 7 days 14 tabs 0RF levofloxacin Discontinued Reason: Patient Completed Course 500 mg PO DAILY 10 tabs 0RF metronidazole Discontinued Reason: Patient Completed Course 500 mg PO Q8H 30 tabs 0RF Coding Level of Care Code New Pt Level 4 (79983) Diagnoses URI, acute J06.9
--- OUTSIDE RECORDS SUMMARY | 2024-07-01 14:58 | XMS_ITS ---
Author Organization [facility] Address [address] [place] [address] Care Team Providers Care Graphics Production Specialist Name Role Phone Harvey Soria MD Primary Care Provider Rickie Sawyer Jr, Earl Toth REASON FOR VISIT medication for pet scan MEDICATIONS Medication SIG (Take, Route, Fr equency, Duration) Notes Start Date End Date Status LORazepam 0.5 MG 1 tablet one hour be fore PET/CT for preprocedural anxiety Orally 05/11/2024 Act matteo Encounters Encounter Location Date Provider Diagnosis [facility] [address] [place] [address] 05/10/2024 Earl Sawyer Jr PLAN OF TREATMENT Medication Medication Name Sig Start Date Stop Date Notes LORazepam 0.5 MG 1 tablet one hour be fore PET/CT for preprocedural anxiety Orally 05/11/2024 Next Appt Details Provider Name:Earl ortiz Jr, 10/18/2024 10:00:00 AM, [address] [place] [address], [address], [place], [address],
--- OUTSIDE RECORDS SUMMARY | 2024-07-01 14:58 | XMS_ITS | Patient Health Record ---
Author Organization [facility] Address [address] [place] [address] Care Team Providers Care Industrial Plant Custodian Name Role Phone Harvey Soria MD Primary Care Provider Earl Ross Jr Unavailable ALLERGIES Allergen (clinical drug ingredient) Drug/Non Drug Allergy documented on EMR Reaction Allergy Type Onset Date Status meperidine Demerol Unknown Drug Allergy Active codeine codeine (uncoded) Unknown Allergy Ac tive darvon (uncoded) Unknown Allergy Act matteo RESULTS Component Value Reference Range Notes MR abdomen wo/w con Reviewed date:04/23/2024 11:17:01 PM Interpretation: Performing Lab: Notes/Report: [address] [address] Magnetic Resonance Report Signed Patient: Yolanda Elizabeth MR#: [id number] 651 : 1945 Acct:[id number] Age/Sex: 79 / F ADM Date: 04/02/24 Loc: HO.MRI Attending Dr: Earl Sawyer MD Ordering Physician: Earl Sawyer MD Date of Service: 04/02/24 Procedure(s): MR abdomen wo/w con Accession Number(s): [id number] cc: Earl Sawyer MD; Harvey Soria MD EXAMINATION: MR ABDOMEN WITHOUT AND WITH CONTRAST CLINICAL INFORMATION: History of sigmoid colon diverticulitis with questionable lesion in the small bowel mesentery on prior CT dated February 09, 2024. COMPARISON: No priors. Correlated to CT dated February 09, 2024. TECHNIQUE: MR abdomen was performed without and with use of 5.5 mL intravenous gadolinium contrast. Postcontrast images are performed in multiphase dynamic sequences. Imaging was performed in 3 planes. No reported immediate complications FINDINGS: Submitted for interpretation on April 21, 2024. Limited by patient's breathing motion artifact. LIVER, GALLBLADDER, AND BILIARY TREE: Liver measures 14 cm. No focal mass. Portal veins, hepatic veins and intrahepatic portion of the IVC are patent. There is a 6 mm nonenhancing septated the cystic signal abnormality in the fundus of the gallbladder. No intrahepatic or extra hepatic biliary ductal dilatation. There are some septations in the gallbladder. PANCREAS: No focal mass. No peripancreatic fluid collection. No main pancreatic ductal dilatation. SPLEEN: 7 cm. No focal lesion. ADRENAL GLANDS: No nodular lesion. KIDNEYS AND URETERS: 1 cm nonenhancing fluid signal characteristic lesion at the corticomedullary junction midportion/lower pole left kidney. No gross renal mass. No hydronephrosis. GASTROINTESTINAL TRACT: Abundant stool within the large intestine. No intestinal obstruction pattern. Scattered diverticula throughout the ascending colon. No ascites. There is segmental wall thickening with enhancement involving the mid to distal sigmoid colon no fully evaluated. Numerous diverticula in the rectosigmoid colon. ABDOMINAL WALL: Small fat-containing umbilical hernia. LYMPH NODES: There is a cluster of 2.3 cm hypointense T1 and T2, heterogeneous mildly enhancing nonrestricted diffusion soft tissue signal in the mesenteric fat associated to the partially calcified soft tissue lesion detected on recent CT dated February 09, 2024. Prominent mesenteric lymph nodes. VASCULAR: No aneurysm or dissection, abdominal aorta. OSSEOUS STRUCTURES: Multilevel thoracolumbar spondylosis. MR/MR abdomen wo/w con IMPRESSION: Partially enhancing 2.3 cm soft tissue fullness in of the mesentery. Carcinoma cannot be entirely excluded. Consider nuclear scan exam. Septated gallbladder with a focal 6 mm cystic abnormality in the fundus. Simple cyst, left kidney. Electronically signed by: Mukul Joseph MD 04/21/2024 10:14 AM [facility] Dictated By: Mukul Pleitez MD Signed By: <Electronically signed by Mukul Rosado MD in OV> 04/21/24 1014 DD/ 1533 TD/TT: 04/02/24 1730 Marine Mammal Trainer: US abdomen complete Reviewed date:04/23/2024 11:17:08 PM Interpretation: Performing Lab: Notes/Report: [address] [address] Ultrasound Report Signed Patient: Yolanda Elizabeth MR#: [id number] 651 : 1945 Acct:[id number] Age/Sex: 79 / F ADM Date: 04/02/24 Loc: HO.US Attending Dr: Earl Sawyer MD Ordering Physician: Earl Sawyer MD Date of Service: 04/02/24 Procedure(s): US abdomen complete Accession Number(s): [id number] cc: Earl Sawyer MD; Harvey Soria MD EXAMINATION: US ABDOMEN COMPLETE CLINICAL INFORMATION: Abnormal CT scan of GI tract. COMPARISON: CT abdomen and pelvis 02/09/2024. TECHNIQUE: Real-time imaging of the abdominal viscera. FINDINGS: PANCREAS: Normal. ABDOMINAL AORTA: Atherosclerotic changes. No aneurysm. INFERIOR VENA CAVA: Visualized portions are normal. LIVER: Normal. The liver is normal in size. The liver contour is normal. Parenchymal echogenicity is normal. No focal hepatic lesion. There is no intrahepatic biliary duct dilatation seen. GALLBLADDER: There is a nonvascular region of thickening in the tip of the fundus measuring approximately 1.0 cm in diameter. This has a concave inferior border has an overall benign appearance. This most likely represents a focus of adenomyomatosis or an unusual polyp. MRI is scheduled for later today. Gallbladder is otherwise normal with no stones or sludge. No wall thickening or pericholecystic fluid. COMMON BILE DUCT: Normal in caliber measuring 0.4 cm in diameter. RIGHT KIDNEY: Normal. No hydronephrosis. No renal calculi or focal parenchymal lesions. The kidney measures 9.8 cm in maximum dimension. LEFT KIDNEY: There are a few subcentimeter simple cysts. No masses. No hydronephrosis or renal calculi. The kidney measures 10.2 cm in maximum dimension. SPLEEN: Normal. The spleen measures 7.1 cm in maximum dimension. FREE FLUID: None. US/US abdomen complete IMPRESSION: 1. Focus of thickening measuring up to 1.0 cm in the gallbladder fundus with with concave inferior border and no associated color Doppler flow. This would be a very unusual appearing mass of the gallbladder and is more likely focal adenomyomatosis of the fundus versus unusual appearance of sludge or polyp. Gallbladder otherwise normal. MRI is scheduled for later today. 2. Subcentimeter left kidney cysts. 3. Exam is otherwise normal. Electronically signed by: Eleazar Peraza MD 04/19/2024 11:54 AM EST Dictated By: Eleazar Peraza MD Signed By: <Electronically signed by Eleazar Peraza MD in OV> 04/19/24 1154 DD/ TD/TT: 04/02/24 09 Marine Mammal Trainer: REASON FOR REFERRAL No Information MEDICATIONS Medication SIG (Take, Route, Frequency, Duration) Notes Start Date End Date Status NIFEdipine 30 MG 1 tablet Orally Once a day Active MiraLax (colon prep) 8.3 ounce ((238) grams mixed with Gatorade or Crystal Light orally begin at 5:00 p.m. the day before the procedure for 1 day 11/22/2020 Active Lisinopril 5 MG 1 tablet Orally Once a day Active Atorvastatin Calcium 10 MG 1 tablet Orally Once a day Active PreserVision AREDS 2 1 1 Orally QD Active Furosemide 40 MG 1 tablet Orally Once a day Active CoQ10 200 MG 1 capsule with a lillie l Orally Once a day Active LORazepam 0.5 MG One tablet one hour before MRI for preprocedural anxiety. Orally 03/31/2024 Active Omeprazole 10 MG 1 capsule Orally Onc e a day Active Metoprolol Succinate ER 25 MG 1 tablet Orally Once a day A ctive flovent HFA 1 tab Oral for 14 days Active Ventolin HFA 108 (90 Base) MCG/ACT 2 puffs as needed Inhalation every 4 hrs/prn Activ e Sertraline HCl 25 MG 1 tablet Orally Onc e a day for 30 day(s) Active Vitamin C Adult Gummies 125 MG 1 Orally QD Active LORazepam 0.5 MG 1 tablet one hour be fore PET/CT for preprocedural anxiety Orally 05/11/2024 Active Vitamin D Active Glucosamine Complex/Vitamin D3 1000 2 Orally QD Acti ve Vitamin B + C Complex - as directed Orally Active Flovent Diskus 50 MCG/BLIST 1 puff Inhalation Twice a day/prn Active Vitamin C 500 MG as directed Orally Active Vitamin B Complex 1 1 Orally QD Active IMMUNIZATIONS Vaccine Route Administration Date Status Comme nts Flu vaccine no Preserv 3 and > Unknown 02/28/2016 Admin istered Influenza Unknown 01/11/2020 Administered Influenza Unknown 03/16/2024 Administered SOCIAL HISTORY Sex Assigned At : Social History Observation Description Sex Assigned At Unknown PROBLEMS Problem Type ICD Code Onset Dates Problem Status W/U Status Risk SNOMED Code Notes Problem Colon cancer screening (Z12.11) Active confirmed 005337185 Problem Rectal bleeding (K62.5) Active confirmed 88385986 Problem Bloating (R14.0) Active confirmed 20909 9008 Problem vermin exterminator (current) use of non-steroidal anti-inflammatories (NSAID) (Z79.1) Active confirmed 730425930 Problem Generalized abdominal pain (R10.84) Active confirmed 930194957 Problem Abnormal CT scan, gastrointestinal tract (R93.3) Active confirmed 129542955 Problem Diverticulosis of large intestine without hemorrhage (K57.30) Active confirmed 046879100 Problem Constipation, unspecified constipation type (K59.00) Active confirmed 44316097 Problem Change in bowel movement (R19.8) Active confirmed 76352621 Problem Abnormal abdominal CT scan (R93.5) Active confirmed 93205245657420021 Problem Abdominal mass, unspecified abdominal location (R19.00) Active confirmed 567424255 Problem Gallbladder mass (K82.8) Active confirmed 878202353392259 Problem Abdominal mass of other site (R19.09) Active confirmed 835380427 Problem 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 [address] [place] [address] 03/22/2024 Earl Sawyer Jr Abnormal CT scan, gastrointestinal tract R93.3 ; Gallbladder mass K82.8 and Abdominal mass of other site R19.09 [facility] [address] [place] [address] 03/09/2024 Earl Sawyer Jr [facility] [address] [place] [address] 03/17/2024 Earl Sawyer Jr [facility] [address] [place] [address] 03/29/2024 Earl Sawyer Jr Abdominal mass, unspecified abdominal location R19.[address] scan R93.5 [facility] [address] [place] [address] 03/30/2024 Earl Sawyer Jr [facility] [address] [place] [address] 04/19/2024 Earl Sawyer Jr Mesenteric mass K63.89 [facility] [address] [facility] [place] [address] 04/21/2024 Earl Sawyer Jr [facility] [address] [facility] [place] [address] 05/10/2024 Earl Sawyer Jr [facility] [address] [facility] [place] [address] 06/23/2024 Earl Sawyer Jr Generalized abdominal pain R10.84 and Change in bowel movement R19.8 [facility] [address] [facility] [place] [address] 07/01/2024 Earl Sawyer Jr ASSESSMENTS Encounter Date Diagnosis Assessment Notes Treatment Notes Treatment Clinical Notes 03/22/[address] scan, gastrointestinal tract (ICD-10 - R93.3) Abdominal mass material was printed 03/22/2024 Gallbladder mass (ICD-10 - K82.8) 03/29/2024 Abdominal mass, unspecified abdominal location (ICD-10 - R19.00) 04/19/2024 Mesenteric mass (ICD -10 - K63.89) Nuclear medicine octreotide scan Dx: mesenteric mass R/O carcinoid tumor 06/23/2024 Generalized abdomina l pain (ICD-10 - R10.84) 03/22/2024 Abdominal mass of ot her site (ICD-10 - R19.09) 03/29/2024 Abnormal abdominal C T scan (ICD-10 - R93.5) 06/23/2024 Change in bowel movement (ICD-10 - R19.8) PLAN OF TREATMENT Pending Test Test Name Order Date BUN 06/23/2024 CREATININE 06/23/2024 LIVER PROFILE 06/23/2024 LIPASE 06/23/2024 CBC w/o DIFF 06/23/2024 CT ABD & PELVIS WITH CONTRAST 06/23/2024 CT COLON SCREENING NO CONTRAST 7 CT COLON SCREENING NO CONTRAST 8 Future Test Test Name Order Date COLONOSCOPY 06/26/2011 COLONOSCOPY 01/15/2017 COLONOSCOPY 11/22/2020 US ABD 03/22/2024 Next Appt Details Provider Name:Earl ortiz , 10/18/2024 10:00:00 AM, [address], [address], [place], [address], Insurance Providers Payer Name Payer Address Payer Phone Subscriber Number Group Number Insured Name Patient Relationship to Insured Coverage Start Date Coverage End Date MEDICARE OF [place] [address] [place] [id number] YOLANDA ELIZABETH Self - patient is the insured MEDICAL (GENERAL) HISTORY Medical History History ICD Code Hyperlipidemia Hypertension Asthma Glucose intolerance Arthritis Gastroesophageal reflux disease Dementia, Alzheimer type, mild Colonoscopy 11/29, diverticul osis, hemorrhoids. Followup not necessary due to age. Surgical History Surgery Date(Month/Year) D&C tubal ligation
--- OUTSIDE RECORDS SUMMARY | 2024-07-01 14:59 | XMS_ITS ---
Author Organization [facility] Address [address] [place] [address] Care Team Providers Care Campaign Analyst Name Role Phone Harvey Soria MD Primary Care Provider Earl Ross Jr Unavailable REASON FOR VISIT PET/CT PROBLEMS Problem Type ICD Code Onset Dates Problem Status W/U Status Risk SNOMED Code Notes Problem Generalized abdominal pain (R10.84) Active confirmed 326037928 Problem Change in bowel movement (R19.8) Active confirmed 66908109 Encounters Encounter Location Date Provider Diagnosis [facility] [address] [place] [address] 06/23/2024 Earl Sawyer Jr Generalized abdominal pain R10.84 and Change in bowel movement R19.8 ASSESSMENTS Encounter Date Diagnosis Assessment Notes Treatment Notes Treatment Clinical Notes 06/23/2024 Generalized abdominal pain (ICD-10 - R10.84) 06/23/2024 Change in bowel movement (ICD-10 - R19.8) PLAN OF TREATMENT Pending Test Test Name Order Date BUN 06/23/2024 CREATININE 06/23/2024 LIVER PROFILE 06/23/2024 LIPASE 06/23/2024 CBC w/o DIFF 06/23/2024 CT ABD & PELVIS WITH CONTRAST 06/23/2024 Next Appt Details Provider Name:Earl ortiz Jr, 10/18/2024 10:00:00 AM, [address], [address], [place], [address],
--- OUTSIDE RECORDS SUMMARY | 2024-07-01 14:59 | XMS_ITS ---
Author Organization [facility] Address [address] [place] [address] Care Team Providers Care Beam Machine Operator Name Role Phone Harvey Soria MD Primary Care Provider UnavailEarl Cerrato Jr Unavailable [phone] REASON FOR VISIT script Encounters Encounter Location Date Provider Diagnosis [facility] [address] [place] [address] 07/01/2024 Earl Sawyer Jr PLAN OF TREATMENT Next Appt Details Provider Name:Earl ortiz Jr, 10/18/2024 10:00:00 AM, [address] [facility] [address], [address], [place], [address],
== END 2024-07-01 15:11 | disposition home or self-care (01) ==
PROVIDERS: PCP Internal Medicine; Visit Provider Physician Assistant
DX: J06.9 Acute upper respiratory infection, unspecified (principal)

== ENCOUNTER 2024-07-01 14:34 | Outpatient (REF) | payer MEDICARE, SELFPAY ==
--- NOTE | ~2024-07-01 | XR_ITS ---
EXAMINATION: XR CHEST CLINICAL INFORMATION: R05.9 - Cough, unspecified COMPARISON: None available. TECHNIQUE: 2 views of the chest were obtained. FINDINGS: The cardiac, hilar, and mediastinal contours are normal. Aortic mural calcifications. The lungs are clear bilaterally. There is no pneumothorax or pleural effusion. There is no focal osseous or soft tissue abnormality. Mild spinal degenerative changes. XR/XR chest 2V IMPRESSION: No active pulmonary disease. Electronically signed by: Eleazar Peraza MD 07/01/2024 02:56 PM EST
[2024-07-01 17:38] LABS: Influenza A PCR POSITIVE (Negative); Influenza B PCR NEGATIVE (Negative); Resp Syncy Virus RNA Qual PCR NEGATIVE (Negative); SARS COV2 PCR INHOUSE NEGATIVE (Negative)
== END 2024-07-01 14:35 | disposition home or self-care (01) ==
LOC: HO.HMGCX 14:34
PROVIDERS: PCP Internal Medicine; Visit Provider Physician Assistant
DX: R05.9 Cough, unspecified (principal); J06.9 Acute upper respiratory infection, unspecified
CPT/HCPCS: 0241U; 71046; 99202

== ENCOUNTER → 2024-07-01 14:38 | Outpatient (BNV) | payer MEDICARE, SELFPAY | PROVIDERS: PCP Internal Medicine; Visit Provider Radiology Diagnostic Radiology | DX: R05.9 Cough, unspecified (principal) | CPT/HCPCS: 71046 ==

== ENCOUNTER 2024-08-13 09:41 | Outpatient (REF) | payer MEDICARE, SELFPAY ==
--- OUTSIDE RECORDS SUMMARY | 2024-08-13 10:46 | XMS_ITS ---
Author Organization [facility] Address [address] [place] [address] Care Team Providers Care Credit Products Officer Name Role Phone Harvey Soria MD Primary Care Provider Earl Ross Jr Unavailable REASON FOR VISIT PET/CT Problems Problem Type SNOMED Code ICD Code Onset Dates Problem Status W/U Status Risk Notes Problem 227941480 Generalized abdominal pain (R10.84) Active confirmed Problem 57526829 Change in bowel movement (R19.8) Active confirmed Encounters Encounter Location Date Provider Diagnosis [facility] [address] [facility] [address] [place] [address] 06/23/2024 Earl Sawyer Jr Generalized abdominal pain R10.84 and Change in bowel movement R19.8 Assessments Encounter Date Diagnosis (ICD Code) Assessment Notes Treatment Notes Treatment Clinical Notes Section Notes 06/23/2024 Generalized abdominal pain (ICD-10 - R10.84) 06/23/2024 Change in bowel movement (ICD-10 - R19.8) Plan Of Treatment Pending Test Test Name Order Date BUN 06/23/2024 CREATININE 06/23/2024 LIVER PROFILE 06/23/2024 LIPASE 06/23/2024 CBC w/o DIFF 06/23/2024 CT ABD & PELVIS WITH CONTRAST 06/23/2024 Next Appt Details Provider Name:Earl ortiz Jr, 10/18/2024 10:00:00 AM, [address] [facility], [address], [place], [address], Progress Notes * JOSE LUIS MAYFIELD GDOB:[birth year] (79 yo F)Acc No.[id number]:06/23/2024 Patient:?JOSE LUIS MAYFIELD :1945???Age:79 Y???Sex:Female Address: [address], [place] [address] Subjective: * Chief Complaints: * ???PET/CT * Medical History:? * Surgical History:? * Hospitalization/Major Diagno stic Procedure:? * Medications:? Objective: Assessment: * Assessment: 1.?Generalized abdominal allie n - R10.84?2.?Change in bowel movement - R19.8? Plan: * Treatment: * Procedure Codes:? * true * Date:? Generated for Tony cancino/Yola/eTronnysmitting on:?08/13/2024 10:46 AM EDT
--- OUTSIDE RECORDS SUMMARY | 2024-08-13 10:46 | XMS_ITS ---
Author Organization [facility] Address [address] [place] [address] Care Team Providers Care Watch Case Polisher Name Role Phone Harvey Soria MD Primary Care Provider Rickie Sawyer Jr, Earl Unavailable REASON FOR VISIT script Medications Medication SIG (Take, Route, Fr equency, Duration) Notes Start Date End Date Status Readi-Cat 2 2.1 % as directed Orally 07/02/2024 Active Encounters Encounter Location Date Provider Diagnosis [facility] [address] [facility] [address] [place] [address] 07/01/2024 Earl Sawyer Jr Plan Of Treatment Medication Medication Name Sig Start Date Stop Date Notes Readi-Cat 2 2.1 % as directed Orally 07/02/2024 Next Appt Details Provider Name:Earl ortiz Jr, 10/18/2024 10:00:00 AM, [address] [place] [address], [address], [place], [address], Progress Notes * JOSE LIUS MAYFIELD GDOB:[birth year] (79 yo F)Acc No.[id number]:07/01/2024 Patient:?JOSE LUIS MAYFIELD :1945???Age:79 Y???Sex:Female Address:[address] [place] [address] * Refills? Start Readi-Cat 2 Suspension, 2.1 %, Orally, 2 Bottle, as directed, Refills=0 * true * Date:? Generated for Printi ng/Faxing/eTransmitting on:?08/13/2024 10:46 AM EDT
--- OUTSIDE RECORDS SUMMARY | 2024-08-13 10:46 | XMS_ITS ---
Author Organization [facility] Address [address] [facility] [address] [place] [address] Care Team Providers Care Communications Scientist Name Role Phone Harvey Soria MD Primary Care Provider Rickie Sawyer Jr, Earl Toth [phone] REASON FOR VISIT medication for pet scan Medications Medication SIG (Take, Route, Fr equency, Duration) Notes Start Date End Date Status LORazepam 0.5 MG 1 tablet one hour be fore PET/CT for preprocedural anxiety Orally 05/11/2024 Act matteo Encounters Encounter Location Date Provider Diagnosis [facility] [address] [place] [address] [place] [address] 05/10/2024 Earl Sawyer Jr Plan Of Treatment Medication Medication Name Sig Start Date Stop Date Notes LORazepam 0.5 MG 1 tablet one hour be fore PET/CT for preprocedural anxiety Orally 05/11/2024 Next Appt Details Provider Name:Earl ortiz Jr, 10/18/2024 10:00:00 AM, [address] [place] [address], [address], [place], [address], Progress Notes * JOSE LUIS MAYFIELD GDOB:[birth year] (79 yo F)Acc No.[id number]:05/10/2024 Patient:?JOSE LUIS MAYFIELD :1945???Age:79 Y???Sex:Female Address:[address] [place] [address] * Refills? Start LORazepam Tablet, 0.5 MG, Orally, 1, 1 tablet one hour before PET/CT for preprocedural anxiety, Refills=0 * true * Date:? Generated for Tony cancino/Yola/Catitting on:?08/13/2024 10:46 AM EDT
[2024-08-13 13:28] LABS: MANUAL DIFF FLAG NO
[2024-08-13 13:43] LABS: Basophils Absolute Auto 0.1 X10*3/uL (0.0-0.2); Basophils Percent Auto 1.5 % (0-2); Eosinophils Absolute Auto 0.2 X10*3/uL (0.0-0.4); Eosinophils Percent Auto 2.1 % (0-4); Hematocrit 39.3 % (37.0-47.0); Hemoglobin 13.1 g/dl (12.0-16.0); Imm Gran Abs Auto 0.02 X10*3/uL (0.00-0.03); Imm Gran Pct Auto 0.3 % (0.0-0.4); Lymphocytes Absolute Auto 1.6 X10*3/uL (1.2-4.9); Lymphocytes Percent Auto 19.9 % (20-40); Mean Corpuscular HGB Conc 33.3 g/dl (31.0-35.0); Mean Corpuscular Hemoglobin 30.3 pg (27.0-33.0); Mean Corpuscular Volume 90.8 fL (80.0-98.0); Mean Platelet Volume 10.7 fL (9.4-12.3); Monocytes Absolute Auto 1.1 X10*3/uL (0.1-1.2); Monocytes Percent Auto 14.4 % (2-11); Neutrophils Absolute Auto 4.9 x10*3/uL (2.0-8.3); Neutrophils Percent Auto 61.8 % (45-73); Platelet Count 391 X10*3/uL (160-400); Red Blood Count 4.33 X10*6/uL (4.20-5.50); Red Cell Distribution Width 13.9 % (11.0-16.0); White Blood Count 7.9 X10*3/uL (4.8-10.8)
[2024-08-13 14:17] LABS: Estimated Average Glucose 111 mg/dL; Hemoglobin A1C 129.4998 umol/L; Hemoglobin A1c % 5.5 % (<6.0); Total Hemoglobin (HGBA1C) 3498.6354 umol/L
[2024-08-13 14:42] LABS: Alanine Aminotransferase 8 U/L (0-31); Albumin Level 4.1 g/dL (3.5-5.0); Alkaline Phosphatase 81 U/L (39-117); Anion Gap 15 (12-20); Aspartate Amino Transferase 19 U/L (5-31); Bilirubin Total 0.9 mg/dL (0.0-1.0); Blood Urea Nitrogen 18 mg/dL (9-16); Calcium 9.7 mg/dL (8.4-10.2); Carbon Dioxide 27 mmol/L (22-29); Chloride 100 mmol/L (96-108); Estimated Glomerular Filt Rate > 60; Glucose Random 113 mg/dL (60-115); Potassium 3.2 mmol/L (3.3-5.1); Sodium 139 mmol/L (135-145); Total Protein 7.3 g/dL (6.5-8.0)
== END 2024-08-13 09:42 | disposition home or self-care (01) ==
LOC: HO.HMGCLDS 09:41
PROVIDERS: PCP Internal Medicine; Visit Provider Internal Medicine
DX: I10 Essential (primary) hypertension (principal); E11.9 Type 2 diabetes mellitus without complications
CPT/HCPCS: 36415; 80053; 83036; 85025

== ENCOUNTER 2024-08-16 08:49 | Outpatient (REF) | payer MEDICARE, SELFPAY ==
--- NOTE | ~2024-08-16 | MM_ITS ---
EXAMINATION: MM DIAGNOSTIC DIGITAL BREAST TOMOSYNTHESIS, BILATERAL Left Limited ultrasound. CLINICAL INFORMATION: Two-year follow-up for minimally complicated cyst in the left breast at 2:00 5 cm from the nipple. COMPARISON: Mammography: Comparison is made with relevant prior exams. TECHNIQUE: Digital breast mammography with tomosynthesis is performed in both the craniocaudal and mediolateral oblique views along with computer-aided detection (CAD). FINDINGS: There are scattered areas of fibroglandular density (ACR BI-RADS breast composition Category b). Right marker clip. There are no significant masses, abnormal calcifications, or other abnormalities. Targeted color Doppler ultrasound scanning in the left breast at 2:00 5 cm from nipple demonstrates a hypoechoic oval circumscribed minimally complicated cyst at 2:00 5 cm from nipple measuring 3 x 2 x 2 mm decrease in size from prior's and not significantly changed on prior ultrasounds dating back for more than 2 years and therefore benign. Results are provided to the patient at time of visit by the technologist. MM/MM tomosynthesis diagnostic BI IMPRESSION: Left: Minimally complicated cyst decreased in size and not significantly changed over 2 years of following on ultrasound. Benign. Right: Benign. ASSESSMENT: BI-RADS BI-RADS 2 - Benign Findings RECOMMENDATION: 1 year F/U This patient's information was entered into a reminder system with a target due date for their next mammogram. Electronically signed by: Radha Rodriguez DO 08/16/2024 12:01 PM EDT
--- OUTSIDE RECORDS SUMMARY | 2024-08-16 09:34 | XMS_ITS | Patient Health Record ---
Author Organization [facility] Address [address] [place] [address] Care Team Providers Care Veneer Sheet Repairer Name Role Phone Harvey Soria MD Primary Care Provider Earl Ross Jr Unavailable Allergies Allergen (clinical drug ingredient) Drug/Non Drug Allergy documented on EMR Reaction Allergy Type Onset Date Status meperidine Demerol Unknown Drug Allergy Active codeine codeine (uncoded) Unknown Allergy Ac tive darvon (uncoded) Unknown Allergy Act matteo Results Component Value Reference Range Notes MR abdomen wo/w con Reviewed date:04/23/2024 11:17:01 PM Interpretation: Performing Lab: Notes/Report: [address] [address] Magnetic Resonance Report Signed Patient: Yolanda Elizabeth MR#: [id number] 651 : 1945 Acct:[id number] Age/Sex: 79 / F ADM Date: 04/02/24 Loc: HO.MRI Attending Dr: Earl Sawyer MD Ordering Physician: Earl Sawyer MD Date of Service: 04/02/24 Procedure(s): MR abdomen wo/w con Accession Number(s): [id number] cc: Earl Sawyer MD; Harvey Soria MD [...] OV> 04/21/24 1014 DD/ 1533 TD/TT: 04/02/24 9770 Medical Psychotherapist: [address] [address] Magnetic Resonance Report Signed Patient: Alanis Elizabeth MR#: [id number] 651 : 1945 Acct:[id number] Age/Sex: 79 / F ADM Date: 04/02/24 Loc: HO.MRI Attending Dr: Kristan Sawyer MD Ordering Physician: Earl Sawyer MD Date of Service: 04/02/24 Procedure(s): MR abd omen wo/w con Accession Number(s): [id number] cc: Earl Sawyer MD; Harvey Soria MD EXAMINATION: MR ABDOMEN WITHOUT A ND WITH CONTRAST CLINICAL INFORMATION: History of sigmoid c olon diverticulitis with questionable lesion in the small bowel mesenter y on prior CT dated February 09, 2024. COMPARISON: No priors. Correlated to CT navneet ed February 09, 2024. TECHNIQUE: MR abdomen was perfo rmed without and with use of 5.5 mL intravenous gadolinium contrast. Postcontrast images are performed in multiphase dynamic sequences. I maging was performed in 3 planes. No reported immediate complications FINDINGS: Submitted for interp retation on April 21, 2024. Limited by patient's breathing motion artifact. LIVER, GALLBLADDER, AND BILIARY TREE: Liver measures 14 cm. No focal mass. Portal veins, hepatic veins and intrahepatic portion of the IVC are patent. There is a 6 mm none nhancing septated the cystic signal abnormality in the fundus of the ga llbladder. No intrahepatic or extra hepatic biliary ductal dilatation. T here are some septations in the gallbladder. PANCREAS: No focal m ass. No peripancreatic fluid collection. No main pancreatic ductal dilatation. SPLEEN: 7 cm. No focal lesion. ADRENAL GLANDS: No n odular lesion. KIDNEYS AND URETERS: 1 cm nonenhancing fl uid signal characteristic lesion at the corticomedullary jaden ction midportion/lower pole left kidney. No gross renal mass. No hydronephrosis. GASTROINTESTINAL TRACT: Abundant stool withi n the large intestine. No intestinal obstruction pattern. Scattered diverticul a throughout the ascending colon. No ascites. There is segmental w all thickening with enhancement involving the mid to distal sigmoid co igor no fully evaluated. Numerous diverticula in the rectosigmoid colon. ABDOMINAL WALL: Smal l fat-containing umbilical hernia. LYMPH NODES: There is a cluster o f 2.3 cm hypointense T1 and T2, heterogeneous mildly enhancing non restricted diffusion soft tissue signal in the mesenteric fat assoc iated to the partially calcified soft tissue lesion detected on recent C T dated February 09, 2024. Prominent mesenteric lymph nodes. VASCULAR: No aneurys m or dissection, abdominal aorta. OSSEOUS STRUCTURES: Multilevel thoracolumbar spondylosis. M R/MR abdomen wo/w con IMPRESSION: Partially enhancing 2.3 cm soft tissue fullness in of the mesentery. Carcinoma cannot be entirely excluded. Consider nuclear scan exam. Septated gallbladder with a focal 6 mm cystic abnormality in the fundus. Simple cyst, left kidney. Electronically hayden d by: Mukul Joseph MD 04/21/2024 10:14 AM EST Dictated By: Mukul Gutierrez MD Signed By: <Electron ically signed by Mukul Rosado MD in OV> 04/21/24 1014 DD/ 1533 TD/TT: 04/02/24 1730 Medical Psychotherapist: US abdomen complete Reviewed date:04/23/2024 11:17:08 PM Interpretation: Performing Lab: Notes/Report: [address] [address] Ultrasound Report Signed Patient: Yolanda Elizabeth MR#: [id number] 651 : 1945 Acct:[id number] Age/Sex: 79 / F ADM Date: 04/02/24 Loc: HO.US Attending Dr: Earl Sawyer MD Ordering Physician: Earl Sawyer MD Date of Service: 04/02/24 Procedure(s): US abdomen complete Accession Number(s): [id number] cc: Earl Sawyer MD; Harvey Soria MD [...] by: Eleazar Peraza MD 04/19/2024 11:54 AM [facility] Dictated By: Eleazar Peraza MD Signed By: <Electronically signed by Eleazar Peraza MD in OV> 04/19/24 1154 DD/ 0837 TD/TT: 04/02/24 0907 Medical Psychotherapist: [address] [address] Ultrasound Report Signed Patient: Alanis Elizabeth MR#: [id number] 651 : 1945 Acct:[id number] Age/Sex: 79 / F ADM Date: 04/02/24 Loc: HO.US Attending Dr: Kristan Sawyer MD Ordering Physician: Earl Sawyer MD Date of Service: 04/02/24 Procedure(s): US abd omen complete Accession Number(s): [id number] cc: Earl Sawyer MD; Harvey Soria MD EXAMINATION: US ABDOMEN COMPLETE CLINICAL INFORMATION: Abnormal CT scan of GI tract. COMPARISON: CT abdomen and pelvi s 02/09/2024. TECHNIQUE: Real-time imaging of the abdominal viscera. FINDINGS: PANCREAS: Normal. ABDOMINAL AORTA: Ath erosclerotic changes. No aneurysm. INFERIOR VENA CAVA: Visualized portions are normal. LIVER: Normal. The l iver is normal in size. The liver contour is normal. Parenchymal echogenicity is normal. No focal hepatic lesion. There is no intrahep atic biliary duct dilatation seen. GALLBLADDER: There i s a nonvascular region of thickening in the tip of the fundus measuring approximately 1.0 cm in diameter. This has a concave inferior bor rashida has an overall benign appearance. This most likely represents a focus of adenomyomatosis or an unusual polyp. MRI is scheduled for lat er today. Gallbladder is otherwise normal with no stones or sludge. No wall thickening or pericholecystic fluid. COMMON BILE DUCT: No rmal in caliber measuring 0.4 cm in diameter. RIGHT KIDNEY: Normal . No hydronephrosis. No renal calculi or focal parenchymal lesions. The kidney measures 9.8 cm in maximum dimension. LEFT KIDNEY: There a re a few subcentimeter simple cysts. No masses. No hydronephrosis or re nal calculi. The kidney measures 10.2 cm in maximum dimension. SPLEEN: Normal. The spleen measures 7.1 cm in maximum dimension. FREE FLUID: None. U S/US abdomen complete IMPRESSION: 1. Focus of thickeni ng measuring up to 1.0 cm in the gallbladder fundus with with concave in ferior border and no associated color Doppler flow. This would be a very unusual appearing mass of the gallbladder and is more likely focal adenomyomatosis of the fundus versus unusual appearance of sludge or polyp. Gallbladder otherwise normal. MRI is scheduled for later today. 2. Subcentimeter lef t kidney cysts. 3. Exam is otherwise normal. Electronically hayden d by: Eleazar Peraza MD 04/19/2024 11:54 AM EST Dictated By: Eleazar Peraza MD Signed By: <Electron ically signed by Eleazar Peraza MD in OV> 04/19/24 1154 DD/ 0837 TD/TT: 04/02/24 0907 Medical Psychotherapist: Reason For Referral No Information Medications Medication SIG (Take, Route, Frequency, Duration) Notes Start Date End Date Status Readi-Cat 2 2.1 % as directed Orally 07/02/2024 Active NIFEdipine 30 MG 1 tablet Orally Once [...] B Complex 1 1 Orally QD Active Immunizations Vaccine Route Administration Date Status Comme nts Flu vaccine no Preserv 3 and > Unknown 02/28/2016 Admin istered Influenza Unknown 01/11/2020 Administered Influenza Unknown 03/16/2024 Administered Problems Problem Type SNOMED Code ICD Code Onset Dates Problem Status W/U Status Risk Notes Problem 834592094 Colon cancer screening (Z12.11) Active confirmed Problem 41455300 Rectal bleeding (K62.5) Active confirmed Problem 713406201 Bloating (R14.0) Active confirmed Problem 216361269 residential (curre nt) use of non-steroidal anti-inflammatories (NSAID) (Z79.1) Active confirmed Problem 172236426 Generalized abdominal pain (R10.84) Active confirmed Problem 132077773 Abnormal CT scan , gastrointestinal tract (R93.3) Active confirmed Problem 166905297 Diverticulosis o f large intestine without hemorrhage (K57.30) Active confirmed Problem 58297285 Constipation, unspecified constipation type (K59.00) Active confirmed Problem 18005174 Change in bowel movement (R19.8) Active confirmed Problem 92073686147211874 Abnormal abdom inal CT scan (R93.5) Active confirmed Problem 937736082 Abdominal mass, unspecified abdominal location (R19.00) Active confirmed Problem 088637802065551 Gallbladder mass (K82.8) Active confirmed Problem 822823032 Abdominal mass o f other site (R19.09) Active confirmed Problem 119107199 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 Vital Signs Temperature 96.8 degrees Fahrenheit 03/22/2024 Blood pressure diastolic 00 mm Hg 03/22/2024 Height 57.75 in 03/22/2024 Blood pressure systolic 000 mm Hg 03/22/2024 Weight 139 lb 6 oz lbs 03/22/2024 BMI 29.38 kg/m2 03/22/2024 Encounters Encounter Location Date Provider Diagnosis [facility] [address] [place] [address] 03/22/2024 Earl Sawyer Jr Abnormal CT scan, gastrointestinal tract R93.3 ; Gallbladder mass K82.8 and Abdominal mass of other site R19.09 [facility] [address] [place] [address] 03/09/2024 Earl Sawyer Jr [facility] [address] [place] [address] 03/17/2024 Earl Sawyer Jr [facility] [address] [place] [address] 03/29/2024 aErl Sawyer Jr Abdominal mass, unspecified abdominal location R19.[address] scan R93.5 [facility] [address] [place] [address] 03/30/2024 Earl Sawyer Jr [facility] [address] [place] [address] 04/19/2024 Earl Sawyer Jr Mesenteric mass K63.89 [facility] [address] [facility] [place] [address] 04/21/2024 Earl Sawyer Jr [facility] [address] [place] [address] 05/10/2024 Earl Sawyer Jr [facility] [address] [facility] [place] [address] 06/23/2024 Earl Sawyer Jr Generalized abdominal pain R10.84 and Change in bowel movement R19.8 [facility] [address] [facility] [place] [address] 07/01/2024 Earl Sawyer Jr Assessments Encounter Date Diagnosis (ICD Code) Assessment Notes Treatment Notes Treatment Clinical Notes Section Notes 03/22/[address] scan, gastrointestinal tract (ICD-10 - R93.3) Abdominal mass material was printed We discussed the CT findings in detail today. Ultrasound imaging will be obtained for further evaluation of the gallbladder mass. As the radiology report does not recommend specific followup regarding the mass at the small bowel mesentery, we will place a telephone call to Dr. Eric Whitten and review this report in detail, specifically questioning him regarding further evaluation of this lesion. We discussed this with Yolanda and her daughter today. 03/22/2024 Gallbladder mass (ICD-10 - K82.8) We discussed the CT findings in detail today. Ultrasound imaging will be obtained for further evaluation of the gallbladder mass. As the radiology report does not recommend specific followup regarding the mass at the small bowel mesentery, we will place a telephone call to Dr. Eric Whitten and review this report in detail, specifically questioning him regarding further evaluation of this lesion. We discussed this with Yolanda and her daughter today. 03/29/2024 Abdominal mass, unspecified abdominal location (ICD-10 - R19.00) 04/19/2024 Mesenteric mass (ICD-10 - K63.89) Nuclear medicine octreotide scan Dx: mesenteric mass R/O carcinoid tumor 06/23/2024 Generalized abdominal pain (ICD-10 - R10.84) 03/22/2024 Abdominal mass of other site (ICD-10 - R19.09) We discussed the CT findings in detail today. Ultrasound imaging will be obtained for further evaluation of the gallbladder mass. As the radiology report does not recommend specific followup regarding the mass at the small bowel mesentery, we will place a telephone call to Dr. Eric Whitten and review this report in detail, specifically questioning him regarding further evaluation of this lesion. We discussed this with Yolanda and her daughter today. 03/29/[address] scan (ICD-10 - R93.5) 06/23/2024 Change in [...] Provider Name:Earl ortiz , 10/18/2024 10:00:00 AM, [address] [place] [address], [place] [address], [place], [address], Insurance Providers Payer Name Payer Address Payer Phone Subscriber Number Group Number Insured Name Patient Relationship to Insured Coverage Start Date Coverage End Date MEDICARE OF [facility] [address] [place] [address] [id number] YOLANDA ELIZABETH Self - patient is the insured Medical (General) History Medical History History ICD Code Hyperlipidemia Hypertension Asthma Glucose intolerance Arthritis Gastroesophageal reflux disease Dementia, Alzheimer type, mild Colonoscopy 11/29, diverticul osis, hemorrhoids. Followup not necessary due to age. Surgical History Surgery Date(Month/Year) D&C tubal ligation
--- OUTSIDE RECORDS SUMMARY | 2024-08-16 09:35 | XMS_ITS ---
Author Organization [facility] Address [address] [facility] [address] [place] [address] Care Team Providers Care Production Support Consultant Name Role Phone Harvey Soria MD Primary Care Provider Rickie Sawyer Jr, Earl Toth REASON FOR VISIT medication for pet scan Medications Medication SIG (Take, Route, Fr equency, Duration) Notes Start Date End Date Status LORazepam 0.5 MG 1 tablet one hour be fore PET/CT for preprocedural anxiety Orally 05/11/2024 Act matteo Encounters Encounter Location Date Provider Diagnosis [facility] [address] [place] [address] [place] [address] 05/10/2024 Earl Sawyer Jr Plan Of Treatment Medication Medication Name Sig Start Date Stop Date Notes LORazepam 0.5 MG 1 tablet one hour be fore PET/CT for preprocedural anxiety Orally 05/11/2024 Next Appt Details Provider Name:Earl ortiz Jr, 10/18/2024 10:00:00 AM, [address] [place] [address], [address] [facility], [place], [address], Progress Notes * JOSE LUIS MAYFIELD GDOB:[birth year] (79 yo F)Acc No.[id number]:05/10/2024 Patient:?JOSE LUIS MAYFIELD :1945???Age:79 Y???Sex:Female Address:[address] [place] [address] * Refills? Start LORazepam Tablet, 0.5 MG, Orally, 1, 1 tablet one hour before PET/CT for preprocedural anxiety, Refills=0 * true * Date:? Generated for Tony cancino/Yola/Catitting on:?08/16/2024 09:34 AM EDT
--- OUTSIDE RECORDS SUMMARY | 2024-08-16 09:35 | XMS_ITS ---
Author Organization [facility] Address [address] [place] [address] Care Team Providers Care Candle Maker Name Role Phone Harvey Soria MD Primary Care Provider Rickie Sawyer Jr, Earl Unavailable REASON FOR VISIT script Medications Medication SIG (Take, Route, Fr equency, Duration) Notes Start Date End Date Status Readi-Cat 2 2.1 % as directed Orally 07/02/2024 Active Encounters Encounter Location Date Provider Diagnosis [facility] [address] [facility] [address] [place] [address] 07/01/2024 Earl Sawyer Jr Plan Of Treatment Medication Medication Name Sig Start Date Stop Date Notes Readi-Cat 2 2.1 % as directed Orally 07/02/2024 Next Appt Details Provider Name:Earl ortiz Jr, 10/18/2024 10:00:00 AM, [address] [place] [address], [address], [place], [address], Progress Notes * JOSE LUIS MAYFIELD GDOB:[birth year] (79 yo F)Acc No.[id number]:07/01/2024 Patient:?MICA MAYFIELDAINE Nola :1945???Age:79 Y???Sex:Female Address:[address] [place] [address] * Refills? Start Readi-Cat 2 Suspension, 2.1 %, Orally, 2 Bottle, as directed, Refills=0 * true * Date:? Generated for Printi ng/Faxing/eTransmitting on:?08/16/2024 09:34 AM EDT
--- OUTSIDE RECORDS SUMMARY | 2024-08-16 09:35 | XMS_ITS ---
Author Organization [facility] Address [address] [place] [address] Care Team Providers Care Radiator Cleaner Name Role Phone Harvey Soria MD Primary Care Provider Earl Ross Jr Unavailable REASON FOR VISIT PET/CT Problems Problem Type SNOMED Code ICD Code Onset Dates Problem Status W/U Status Risk Notes Problem 314755379 Generalized abdominal pain (R10.84) Active confirmed Problem 23508713 Change in bowel movement (R19.8) Active confirmed Encounters Encounter Location Date Provider Diagnosis [facility] [address] [facility] [address] [place] [address] 06/23/2024 Earl Sawyer Jr Generalized abdominal pain [...] [facility], [address], [place], [address], Progress Notes * JOSE LUIS MAYFIELD GDOB:[birth year] (79 yo F)Acc No.[id number]:06/23/2024 Patient:?JOSE LUIS MAYFIELD :1945???Age:79 Y???Sex:Female Address: [address], [place] [address] Subjective: * Chief Complaints: * ???PET/CT * Medical History:? * Surgical History:? * Hospitalization/Major Diagno stic Procedure:? * Medications:? Objective: Assessment: * Assessment: 1.?Generalized abdominal allie n - R10.84?2.?Change in bowel movement - R19.8? Plan: * Treatment: * Procedure Codes:? * true * Date:? Generated for Tony cancino/Yola/Catitting on:?08/16/2024 09:34 AM EDT
== END 2024-08-16 08:50 | disposition home or self-care (01) ==
LOC: HO.MAMMO 08:49
PROVIDERS: PCP Internal Medicine; Visit Provider Internal Medicine
DX: R92.2 Inconclusive mammogram (principal)
CPT/HCPCS: 76642; 77062; 77066

== ENCOUNTER → 2024-08-16 09:00 | Outpatient (BNV) | payer MEDICARE, SELFPAY | PROVIDERS: PCP Internal Medicine; Visit Provider Internal Medicine | DX: N63.11 Unspecified lump in the right breast, upper outer quadrant (principal) | CPT/HCPCS: 76642; 77066; G0279 ==

== ENCOUNTER 2024-08-20 09:18 | Outpatient (AMB) | payer MEDICARE, SELFPAY ==
--- OUTSIDE RECORDS SUMMARY | 2024-08-20 09:39 | XMS_ITS | Patient Health Record ---
Author Organization [facility] Address [address] [place] [address] Care Team Providers Care Hedis Nurse Name Role Phone Harvey Soria MD Primary [...] date:04/23/2024 11:17:01 PM Interpretation: Performing Lab: Notes/Report: [address] [address] Magnetic Resonance Report Signed Patient: Yolanda Elizabeth MR#: [id number] 651 : 1945 Acct:[id number] Age/Sex: 79 / F ADM Date: 04/02/24 Loc: HO.MRI Attending Dr: Earl Sawyer MD Ordering Physician: Earl Sawyer MD Date of Service: 04/02/24 Procedure(s): MR abdomen wo/w con Accession Number(s): [id number] cc: Earl Sawyer MD; Harvey Soria MD [...] by: Mukul Joseph MD 04/21/2024 10:14 AM [facility] Dictated By: Mukul Pleitez MD Signed By: <Electronically signed by Mukul Rosado MD in OV> 04/21/24 1014 DD/ 1533 TD/TT: 04/02/24 9780 [employer]: [address] [address] Magnetic Resonance Report Signed Patient: Alanis Elizabeth MR#: [id number] 651 : 1945 Acct:[id number] Age/Sex: 79 / F ADM Date: 04/02/24 Loc: HO.MRI Attending Dr: Kristan Sawyer MD Ordering Physician: Earl Sawyer MD Date of Service: 04/02/24 Procedure(s): MR abd omen wo/w con Accession Number(s): [id number] cc: Earl Sawyer MD; Harvey Soria MD [...] 04/21/24 1014 DD/ 1533 TD/TT: 04/02/24 1730 [employer]: US abdomen complete Reviewed date:04/23/2024 11:17:08 PM Interpretation: Performing Lab: Notes/Report: [address] [address] Ultrasound Report Signed Patient: Yolanda Elizabeth MR#: [id number] 651 : 1945 Acct:[id number] Age/Sex: 79 / F ADM Date: 04/02/24 Loc: HO.US Attending Dr: Earl Sawyer MD Ordering Physician: Earl Sawyer MD Date of Service: 04/02/24 Procedure(s): US abdomen complete Accession Number(s): [id number] cc: Earl Sawyer MD; Harvey Soria MD [...] by: Eleazar Peraza MD 04/19/2024 11:54 AM [facility] Dictated By: Eleazar Peraza MD Signed By: <Electronically signed by Eleazar Peraza MD in OV> 04/19/24 1154 DD/ 0837 TD/TT: 04/02/24 0907 [employer]: [address] [address] Ultrasound Report Signed Patient: Alanis Elizabeth MR#: [id number] 651 : 1945 Acct:[id number] Age/Sex: 79 / F ADM Date: 04/02/24 Loc: HO.US Attending Dr: Kristan Sawyer MD Ordering Physician: Earl Sawyer MD Date of Service: 04/02/24 Procedure(s): US abd omen complete Accession Number(s): [id number] cc: Earl Sawyer MD; Harvey Soria MD [...] 04/19/24 1154 DD/ 0837 TD/TT: 04/02/24 0907 [employer]: Reason For Referral No Information Medications Medication [...] Problem Status W/U Status Risk Notes Problem 135787085 Colon cancer screening (Z12.11) Active confirmed Problem 18028559 Rectal bleeding (K62.5) Active confirmed Problem 431282819 Bloating (R14.0) Active confirmed Problem 605054657 shelter (curre nt) use of non-steroidal anti-inflammatories (NSAID) (Z79.1) Active confirmed Problem 675103278 Generalized abdominal pain (R10.84) Active confirmed Problem 623669278 Abnormal CT scan , gastrointestinal tract (R93.3) Active confirmed Problem 194847800 Diverticulosis o f large intestine without hemorrhage (K57.30) Active confirmed Problem 86799349 Constipation, unspecified constipation type (K59.00) Active confirmed Problem 11247487 Change in bowel movement (R19.8) Active confirmed Problem 15427633629039620 Abnormal abdom inal CT scan (R93.5) Active confirmed Problem 731115157 Abdominal mass, unspecified abdominal location (R19.00) Active confirmed Problem 588939641590566 Gallbladder mass (K82.8) Active confirmed Problem 688466956 Abdominal mass o f other site (R19.09) Active confirmed Problem 223101584 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 Vital Signs Temperature 96.8 degrees Fahrenheit 03/22/2024 Blood pressure diastolic 00 mm Hg 03/22/2024 Height 57.75 in 03/22/2024 Blood pressure systolic 000 mm Hg 03/22/2024 Weight 139 lb 6 oz lbs 03/22/2024 BMI 29.38 kg/m2 03/22/2024 Encounters Encounter Location Date Provider Diagnosis [facility] [address] [place] [phone] 03/22/2024 Earl Sawyer Jr Abnormal CT scan, gastrointestinal tract R93.3 ; Gallbladder mass K82.8 and Abdominal mass of other site R19.09 [facility] [address] [place] [phone] 08/19/2024 Earl Sawyer Jr [facility] [address] [place] [address] 03/09/2024 Earl Sawyer Jr [facility] [address] [place] [address] 03/17/2024 Earl Sawyer Jr [facility] [address] [place] [address] 03/29/2024 Earl Sawyer Jr Abdominal mass, unspecified abdominal location R19.[address] scan R93.5 [facility] [address] [place] [address] 03/30/2024 Earl Sawyer Jr [facility] [address] [place] [address] 04/19/2024 Earl Sawyer Jr Mesenteric mass K63.89 [facility] [address] [facility] [place] [address] 04/21/2024 Eral Sawyer Jr [facility] [address] [place] [address], [place] [address] 05/10/2024 Earl Silverio [facility] [address] [facility] [place] [address] 06/23/2024 Earl Sawyer Jr Generalized abdominal pain R10.84 and Change in bowel movement R19.8 [facility] [address] [place], [place] [address], [place] [address] 07/01/2024 Earl Sawyer Jr Assessments Encounter Date [...] Provider Name:Earl ortiz , 10/18/2024 10:00:00 AM, [address] [place] [address], [address], [place], [address], Insurance Providers Payer Name Payer Address Payer Phone Subscriber Number Group Number Insured Name Patient Relationship to Insured Coverage Start Date Coverage End Date [place] [address] [place] [id number] CHAPARRO YOLANDA Self - patient is the insured Medical (General) History Medical History History ICD Code Hyperlipidemia Hypertension Asthma Glucose intolerance Arthritis Gastroesophageal reflux disease Dementia, Alzheimer type, mild Colonoscopy 11/29, diverticul osis, hemorrhoids. Followup not necessary due to age. Surgical History Surgery Date(Month/Year) D&C tubal ligation
--- OUTSIDE RECORDS SUMMARY | 2024-08-20 09:39 | XMS_ITS ---
Author Organization [facility] Address [address] [place] [address] Care Team Providers Care Ball Warper Tender Name Role Phone Harvey Soria MD Primary Care Provider Rickie Sawyer Jr, Earl Unavailable REASON FOR VISIT script Medications Medication SIG (Take, Route, Fr equency, Duration) Notes Start Date End Date Status Readi-Cat 2 2.1 % as directed Orally 07/02/2024 Active Encounters Encounter Location Date Provider Diagnosis [facility] [address] [facility] [place] [address] 07/01/2024 Earl Sawyer Jr Plan Of Treatment Medication Medication Name Sig Start Date Stop Date Notes Readi-Cat 2 2.1 % as directed Orally 07/02/2024 Next Appt Details Provider Name:Earl ortiz Jr, 10/18/2024 10:00:00 AM, [address] [place] [address], [address], [place], [address], Progress Notes * JOSE LUIS MAYFIELD GDOB:[birth year] (79 yo F)Acc No.[id number]:07/01/2024 Patient:?MICA MAYFIELDAINE Nola :1945???Age:79 Y???Sex:Female Address:[address] [place] [address] * Refills? Start Readi-Cat 2 Suspension, 2.1 %, Orally, 2 Bottle, as directed, Refills=0 * true * Date:? Generated for Printi ng/Faxing/eTransmitting on:?08/20/2024 09:39 AM EDT
--- OUTSIDE RECORDS SUMMARY | 2024-08-20 09:39 | XMS_ITS ---
Author Organization [facility] Address [address] [place] [address] Care Team Providers Care Joint Maker Machine Name Role Phone Harvey Soria MD Primary Care Provider Earl Ross Jr [phone] REASON FOR VISIT rescheduled ct scan Encounters Encounter Location Date Provider Diagnosis [facility] [address] [place] [address] 08/19/2024 Earl Sawyer Jr Plan Of Treatment Next Appt Details Provider Name:Earl ortiz Jr, 10/18/2024 10:00:00 AM, [address], [address], [place], [address], Progress Notes * JOSE LUIS MAYFIELD GDOB:[birth year] (79 yo F)Acc No.[id number]:08/19/2024 Patient:?JOSE LUIS MAYFIELD :1945???Age:79 Y???Sex:Female Address:[address] [place] [address] * * Date:?
--- OUTSIDE RECORDS SUMMARY | 2024-08-20 09:39 | XMS_ITS ---
Author Organization [facility] Address [address] [place] [address] Care Team Providers Care Biodiesel Technology Manager Name Role Phone Harvey Soria MD Primary Care Provider Earl Ross Jr Unavailable REASON FOR VISIT PET/CT Problems Problem Type SNOMED Code ICD Code Onset Dates Problem Status W/U Status Risk Notes Problem 154026805 Generalized abdominal pain (R10.84) Active confirmed Problem 26823777 Change in bowel movement (R19.8) Active confirmed Encounters Encounter Location Date Provider Diagnosis [facility] [address] [place] [address] 06/23/2024 Earl Sawyer Jr Generalized abdominal pain [...] Name:Earl ortiz Jr, 10/18/2024 10:00:00 AM, [address], [address], [place], [address], Progress Notes * JOSE LUIS MAYFIELD GDOB:[birth year] (79 yo F)Acc No.[id number]:06/23/2024 Patient:?JOSE LUIS MAYFIELD :1945???Age:79 Y???Sex:Female Address: [address], [place] [address] Subjective: * Chief Complaints: * ???PET/CT * Medical History:? * Surgical History:? * Hospitalization/Major Diagno stic Procedure:? * Medications:? Objective: Assessment: * Assessment: 1.?Generalized abdominal allie n - R10.84?2.?Change in bowel movement - R19.8? Plan: * Treatment: * Procedure Codes:? * true * Date:? Generated for Tony cancino/Yola/Catitting on:?08/20/2024 09:39 AM EDT
[2024-08-20 09:52] VITALS: BP 124/70; PULSE 57; TEMP 36.3; O2SAT 99; BMI 27.5
--- NOTE | 2024-08-20 09:52 | MHC.PC.OV ---
Vital Signs 08/20/24 09:52 Height 4 ft 11 in Weight 136 lb BMI 27.5 BP 124/70 Blood Pressure Location Lt brachial Position Sitting Pulse 57 Pulse Source Pulse Oximeter Temp 97.4 F Temp Source Axillary Pulse Oximetry (%) 99 Oxygen Delivery Method Room Air Intake Visit Reasons: Routine Ceramic Saw Tender Required: No Accompanied by: Daughter Allergies codeine [CODEINE] Allergy (Severe, Verified 08/20/24 09:56) DIFFICULTY BREATHING meperidine [Demerol] Allergy (Unknown, Verified 08/20/24 09:56) Nausea and Vomiting From DARVON Allergy (Severe, Uncoded 08/20/24 09:56) SHORTNESS OF BREATH Codeine Phosphate Allergy (Unknown, Uncoded 08/20/24 09:56) Nausea and Vomiting Darvon Allergy (Unknown, Uncoded 08/20/24 09:56) Shortness of Breath Tobacco use date assessed: 08/20/24 Fall risk assessment: No Falls in past year Last assessed Fall Risk: 08/20/24 Dental Screening Dental Screen Date: 08/20/24 Did you have a dental visit in the last 12 months?: No Did you have a dental problem in the last 6 months where you did not have access to dental care?: No HPI HPI Comments History of Present Illness Details 79 year old female with a past medical history of htn, hld, GERD, asthma, diverticulosis, memory issues, prediabetes, asthma presenting for follow. Last seen by pcp in May. CV: On lisinopril, nifedipine, toprol, lasix. BP 124/72. Denies chest pain, chronic exertional dyspnea, unchanged. Asthma: Seen in urgent care for exacerbation. Mammo 06/2023, Mammo & u/s this week ROS see HPI PHYSICAL EXAM: GENERAL: Alert and oriented x 3. NAD EYES: EOMI. Anicteric. HENT: Moist mucous membranes. No scleral icterus. No cervical lymphadenopathy. LUNGS: Clear to auscultation bilaterally. CARDIOVASCULAR: Regular rate and rhythm. No murmur. No JVD. ABDOMEN: Soft, non-tender +bs EXTREMITIES: No edema. Non-tender. SKIN: No rashes or lesions. Warm. NEUROLOGIC: No focal neurological deficits. CN II-XII grossly intact PSYCHIATRIC: Cooperative. Appropriate mood and affect [facility] Medical History GERD (gastroesophageal reflux disease) Arthritis Glucose intolerance Asthma HTN (hypertension) HLD (hyperlipidemia) Surgical History H/O dilation and curettage H/O tubal ligation Family History Mother No problems noted. Father No problems noted. Social History Household Members: None Housing: House Do you presently have visiting nurse or other home services: No Patient Tobacco Use Status: Never used Tobacco e-Cigarette/Vaping Use: Never Used Second Hand Smoke Exposure: No service: No Current occupational status: retired Cognitive needs: No Hearing needs: No Vision needs: Yes (reading glasses) Questionnaire PHQ-9 Over the last 2 weeks, how often have you been bothered by any of the following problems? 1. Little interest or pleasure in doing things: not at all 2. Feeling down, depressed, or hopeless: not at all 3. Trouble falling or staying asleep, or sleeping too much: not at all 4. Feeling tired or having little energy: not at all 5. Poor appetite or overeating: not at all 6. Feeling bad about yourself - or that you are a failure or have let yourself or your family down: not at all 7. Trouble concentrating on things, such as reading the newspaper or watching television: not at all 8. Moving or speaking so slowly that other people could have noticed. Or the opposite - being so fidgety or restless that you have been moving around a lot more than usual: not at all 9. Thoughts that you would be better off or of hurting yourself in some way: not at all Total score: 0 Depression Screening Interpretation: Negative Depression Screening Done: Yes 57708 - PHQ-9 Billing: Yes Source: Developed by Drs. Ponce Cardona, Rhonda Mora, Shorty Gerard and colleagues, with an educational parish from [employer]. Thrive Questionnaire Date Thrive assessed: 08/20/24 I am a: Patient Within the past 12 months, did the food you bought not last and you didn't have the money to get more?: Never true Within the past 12 months, did you worry whether your food would run out before you got money to buy more?: Never true Do you have trouble paying for medicines?: No Do you have trouble getting transportation to medical appointments?: No Do you have trouble paying your heating and electricity bill?: No Do you have trouble taking care of your child, family member or friend?: No Do you have trouble with day-to-day activities such as bathing, preparing meals, shopping, managing finances, etc.?: No Are you currently unemployed and looking for a job?: No Are you interested in more education?: No THRIVE Score: 0 AUDIT C Alcohol Use Questionnaire (AUDIT-C) 1. How often do you have a drink containing alcohol?: Never 3. How often do you have six or more drinks on one occasion?: Never Total Score: 0 CONSUELO-7 AMB Questionnaire CONSUELO-7 Date CONSUELO - 7 assessed: 08/20/24 Feeling nervous, anxious, or on edge: 0 = Not at all Not being able to stop or control worryin = Not at all Worrying too much about different things: 0 = Not at all Trouble relaxin = Not at all Being so restless that it is hard to sit still: 0 = Not at all Becoming easily annoyed or irritable: 0 = Not at all Feeling afraid as if something awful might happen: 0 = Not at all Total CONSUELO-7 score (0-4 normal; 5-9 mild; 10-14 moderate; 15-21 severe): 0 Source: Developed by Drs. Ponce Cardona, Rhonda Mora, Shorty Gerard and colleagues, with an educational parish from [employer]. Physical exam (Primary Care) Vital Signs: Last Vital Signs Temp 97.4 F 08/20/24 09:52 Pulse 57 08/20/24 09:52 BP 124/70 08/20/24 09:52 Pulse Ox 99 08/20/24 09:52 Oxygen Delivery Method Room Air 08/20/24 09:52 BMI result Body Mass Index 27.5 Tobacco/Smoking Status: Tobacco use Status Tobacco use date assessed 08/20/24 08/20/24 10:00 Patient Tobacco Use Status Never used Tobacco 08/20/24 10:00 e-Cigarette/Vaping Use Never Used 08/20/24 10:00 PHQ-9: PHQ-9 Score PHQ-9: Total score 0 08/20/24 10:19 Depression Screening Interpretation: Negative Thrive Assessment: Date of Thrive Assessment Date Thrive assessed 08/20/24 08/20/24 10:00 Coding Level of Care Code New Pt Level 4 (49173) Diagnoses Mild Alzheimer's dementia without behavioral disturbance, psychotic disturbance, mood disturbance, or anxiety, unspecified timing of dementia onset G30.9; F02.A0 Alzheimer's disease onset: unspecified onset Dementia severity: mild Dementia behavioral or psychological symptom: without behavioral, psychotic, or mood disturbance or anxiety Primary hypertension I10 Hypertension type: primary hypertension Hyperlipidemia, unspecified hyperlipidemia type E78.5 Hyperlipidemia type: unspecified Monocytoses D72.821 Leg cramps R25.2 Additional Codes PHQ-9 - 00799 - PHQ-9 Billing: Yes ([id number]) Assessment & Plan Assessment & Plan (1) Alzheimer dementia: Code(s): G30.9 - Alzheimer's disease, unspecified; F02.80 - Dementia in other diseases classified elsewhere, unspecified severity, without behavioral disturbance, psychotic disturbance, mood disturbance, and anxiety Category: Medical Qualifiers: Alzheimer's disease onset: unspecified onset Dementia severity: mild Dementia behavioral or psychological symptom: without behavioral, psychotic, or mood disturbance or anxiety Qualified Code(s): G30.9 - Alzheimer's disease, unspecified; F02.A0 - Dementia in other diseases classified elsewhere, mild, without behavioral disturbance, psychotic disturbance, mood disturbance, and anxiety (2) HTN (hypertension): Code(s): I10 - Essential (primary) hypertension Category: Medical Qualifiers: Hypertension type: primary hypertension Qualified Code(s): I10 - Essential (primary) hypertension (3) HLD (hyperlipidemia): Code(s): E78.5 - Hyperlipidemia, unspecified Category: Medical Qualifiers: Hyperlipidemia type: unspecified Qualified Code(s): E78.5 - Hyperlipidemia, unspecified (4) Monocytoses: Code(s): D72.821 - Monocytosis (symptomatic) Category: Medical (5) Leg cramps: Code(s): R25.2 - Cramp and spasm Category: Medical Plan 79 year old to establish care past medical, surgical, social and family history reviewed Chronic medical conditions stable Labs due and ordered. elevated monocytes with last labs. recheck. asthma is stable Blood pressure adequately controlled. continue current medications leg cramps -labs ordered. low potassium, potassium supplement sent Orders: Orders Complete Blood Count Auto Diff 08/20/24 D72.821 - Monocytosis (symptomatic), F02.80 - Dementia in other diseases classified elsewhere, unspecified severity, without behavioral disturbance, psychotic disturbance, mood disturbance, and anxiety, G30.9 - Alzheimer's disease, unspecified, K21.9 - Gastro-esophageal reflux disease without esophagitis Pathologist Review - CBC 08/20/24 D72.821 - Monocytosis (symptomatic), F02.80 - Dementia in other diseases classified elsewhere, unspecified severity, without behavioral disturbance, psychotic disturbance, mood disturbance, and anxiety, G30.9 - Alzheimer's disease, unspecified, K21.9 - Gastro-esophageal reflux disease without esophagitis Comprehensive Met. Panel 08/20/24 E78.5 - Hyperlipidemia, unspecified, I10 - Essential (primary) hypertension, K21.9 - Gastro-esophageal reflux disease without esophagitis Lipid Panel 08/20/24 E78.5 - Hyperlipidemia, unspecified, I10 - Essential (primary) hypertension, K21.9 - Gastro-esophageal reflux disease without esophagitis TSH reflex Free T4 08/20/24 E78.5 - Hyperlipidemia, unspecified, I10 - Essential (primary) hypertension, K21.9 - Gastro-esophageal reflux disease without esophagitis Magnesium 08/20/24 R25.2 - Cramp and spasm IRON PROFILE 08/20/24 R25.2 - Cramp and spasm Medications: New potassium chloride ER 40 mEq (2 x 20 mEq) PO DAILY 180 tabs 3RF
== END 2024-08-20 10:39 | disposition home or self-care (01) ==
LOC: HO.HMCHD 09:19
PROVIDERS: PCP Internal Medicine; Visit Provider Internal Medicine
DX: G30.9 Alzheimer's disease, unspecified (principal); F02.A0 Dementia in other diseases classified elsewhere, mild, without behavioral disturbance, psychotic disturbance, mood disturbance, and anxiety; I10 Essential (primary) hypertension; E78.5 Hyperlipidemia, unspecified; D72.821 Monocytosis (symptomatic); R25.2 Cramp and spasm

== ENCOUNTER → 2024-08-20 09:18 | Outpatient (BNVA) | payer MEDICARE, SELFPAY | PROVIDERS: PCP Internal Medicine; Visit Provider Internal Medicine | DX: G30.9 Alzheimer's disease, unspecified (principal); F02.A0 Dementia in other diseases classified elsewhere, mild, without behavioral disturbance, psychotic disturbance, mood disturbance, and anxiety; I10 Essential (primary) hypertension; E78.5 Hyperlipidemia, unspecified; D72.821 Monocytosis (symptomatic); R25.2 Cramp and spasm; J45.909 Unspecified asthma, uncomplicated; Z79.899 Other long term (current) drug therapy | CPT/HCPCS: 96127; 99202 ==

== ENCOUNTER 2024-09-03 09:57 | Outpatient (REF) | payer MEDICARE, SELFPAY ==
[2024-09-03 13:07] LABS: MANUAL DIFF FLAG NO
[2024-09-03 13:22] LABS: Basophils Absolute Auto 0.1 X10*3/uL (0.0-0.2); Basophils Percent Auto 2.2 % (0-2); Eosinophils Absolute Auto 0.3 X10*3/uL (0.0-0.4); Eosinophils Percent Auto 4.5 % (0-4); Hematocrit 37.8 % (37.0-47.0); Hemoglobin 12.5 g/dl (12.0-16.0); Imm Gran Abs Auto 0.01 X10*3/uL (0.00-0.03); Imm Gran Pct Auto 0.2 % (0.0-0.4); Lymphocytes Absolute Auto 1.6 X10*3/uL (1.2-4.9); Lymphocytes Percent Auto 27.2 % (20-40); Mean Corpuscular HGB Conc 33.1 g/dl (31.0-35.0); Mean Corpuscular Hemoglobin 30.9 pg (27.0-33.0); Mean Corpuscular Volume 93.6 fL (80.0-98.0); Mean Platelet Volume 10.6 fL (9.4-12.3); Monocytes Absolute Auto 0.7 X10*3/uL (0.1-1.2); Monocytes Percent Auto 11.9 % (2-11); Neutrophils Absolute Auto 3.1 x10*3/uL (2.0-8.3); Platelet Count 356 X10*3/uL (160-400); Red Blood Count 4.04 X10*6/uL (4.20-5.50); Red Cell Distribution Width 13.7 % (11.0-16.0); White Blood Count 5.8 X10*3/uL (4.8-10.8)
[2024-09-03 13:43] LABS: Alanine Aminotransferase 16 U/L (0-31); Albumin Level 4.1 g/dL (3.5-5.0); Alkaline Phosphatase 65 U/L (39-117); Anion Gap 9 (12-20); Aspartate Amino Transferase 22 U/L (5-31); Bilirubin Total 0.4 mg/dL (0.0-1.0); Blood Urea Nitrogen 20 mg/dL (9-16); Calcium 9.6 mg/dL (8.4-10.2); Carbon Dioxide 30 mmol/L (22-29); Chloride 105 mmol/L (96-108); Cholesterol 154 mg/dL (<200); Estimated Glomerular Filt Rate > 60; Glucose Random 130 mg/dL (60-115); HDL Cholesterol 51 mg/dL (>40); Iron 52 mcg/dL (30-160); LDL Cholesterol Calculated 84 mg/dL (<100); Magnesium 2.4 mg/dL (1.6-2.6); Percent Iron Saturation 18 % (15-50); Potassium 4.2 mmol/L (3.3-5.1); Sodium 140 mmol/L (135-145); Total Iron Binding Capacity 285 mcg/dL (228-428); Total Protein 7.2 g/dL (6.5-8.0); Triglycerides 97 mg/dL (<150); Unsaturated Iron Binding 233 ug/dL
[2024-09-03 14:11] LABS: TSH reflex Free T4 2.06 uIU/mL (0.32-4.0)
== END 2024-09-03 09:58 | disposition home or self-care (01) ==
LOC: HO.HMGCLDS 09:57
PROVIDERS: PCP Internal Medicine; Visit Provider Internal Medicine
DX: G30.9 Alzheimer's disease, unspecified (principal); F02.80 Dementia in other diseases classified elsewhere, unspecified severity, without behavioral disturbance, psychotic disturbance, mood disturbance, and anxiety; K21.9 Gastro-esophageal reflux disease without esophagitis; D72.821 Monocytosis (symptomatic); I10 Essential (primary) hypertension; E78.5 Hyperlipidemia, unspecified; R25.2 Cramp and spasm
CPT/HCPCS: 80053; 80061; 83540; 83735; 84443; 85025

== ENCOUNTER 2024-10-06 08:53 | Outpatient (REF) | payer MEDICARE, SELFPAY ==
--- NOTE | ~2024-10-06 | CT_ITS ---
EXAMINATION: CT ABDOMEN PELVIS WITH IV CONTRAST HISTORY: abd pain COMPARISON: Comparison is made with the prior examination dated 02/09/2024. TECHNIQUE: CT scan of the abdomen and pelvis was performed following administration of 85 mL Omnipaque 350 using standard departmental protocol. Coronal and sagittal reformatted images were generated and reviewed. The patient received oral contrast material. This CT exam was performed with one or more of the following dose reduction techniques: automated exposure control, adjustment of the mA and/or kV according to patient size, use of iterative reconstruction technique. DLP: 317 mGy-cm FINDINGS: LOWER CHEST: The visualized lung bases are clear. There is no pleural effusion. CARDIOVASCULATURE: The heart is normal in size. There is no pericardial effusion. LIVER: The liver is normal in size and contour. No liver mass is identified. The hepatic and portal veins are patent. GALLBLADDER / BILE DUCTS: Again seen is focal wall thickening of the fundus of the gallbladder. No calcified stones are identified. There is no intra or extrahepatic biliary ductal dilatation. SPLEEN: The spleen is normal in size. No focal splenic lesion is identified. PANCREAS: The pancreas is unremarkable in appearance. ADRENAL GLANDS: Within normal limits. KIDNEYS/RETROPERITONEUM: No renal calculi are identified. There is no hydronephrosis. There is scarring at the lower pole of the left kidney. There are left renal cysts measuring up to 10 mm in size. LYMPH NODES: Again seen are prominent lymph nodes at the root of the mesentery. There is diffuse mesenteric infiltration as seen previously. VASCULATURE: The abdominal aorta demonstrates atherosclerotic calcification, but is normal in caliber. MESENTERY/PERITONEUM: No ascites is seen in the abdomen or pelvis. Again seen is a partially calcified mass at the root of the mesentery measuring approximately 3.2 x 1.8 x 2.6 cm which is slightly smaller than on the prior study. This is suggestive of a carcinoid tumor. There is no free intraperitoneal gas. STOMACH: Again seen is a large hiatal hernia. SMALL BOWEL: The small bowel is normal in caliber. COLON: There is a large amount of stool throughout the colon. Again seen is wall thickening of the sigmoid colon and multiple sigmoid diverticuli. APPENDIX: The appendix is mildly dilated measuring up to 7 mm in diameter and the tip is slightly hyperemic. There are no periappendiceal inflammatory changes. URINARY BLADDER/PELVIC ORGANS: The urinary bladder is unremarkable. The uterus is unremarkable. BONES / SOFT TISSUES: There is degenerative disc disease of the spine. CT/CT abdomen pelvis w IV con IMPRESSION: 1. Slight interval decrease in size of the previously noted partially calcified mass at the root of the mesentery suspicious for a carcinoid tumor. There is associated prominent lymph nodes at the root of the mesentery and diffuse mesenteric infiltration, without change. 2. Large amount of stool throughout the colon. Wall thickening of the sigmoid colon which may be secondary to chronic diverticulosis. A mass is not excluded, however. This could be further evaluated with sigmoidoscopy. 3. Focal wall thickening of the fundus of the gallbladder as seen previously. 4. Prominent appendix which is mildly dilated and demonstrates hyperemia of the tip. No periappendiceal inflammatory changes are seen, however. Electronically signed by: Ponce Vásquez MD 10/06/2024 10:28 AM EDT
--- OUTSIDE RECORDS SUMMARY | 2024-10-06 09:16 | XMS_ITS | Patient Health Record ---
Author Organization [facility] Address [address] [place] [address] Care Team Providers Care Financial Analysis Advisor Name Role Phone Harvey Soria MD Primary [...] date:04/23/2024 11:17:01 PM Interpretation: Performing Lab: Notes/Report: [address] [address] Magnetic Resonance Report Signed Patient: Yolanda Elizabeth MR#: [id number] 651 : 1945 Acct:[id number] Age/Sex: 79 / F ADM Date: 04/02/24 Loc: HO.MRI Attending Dr: Earl Sawyer MD Ordering Physician: Earl Sawyer MD Date of Service: 04/02/24 Procedure(s): MR abdomen wo/w con Accession Number(s): [id number] cc: Earl Sawyer MD; Harvey Soria MD [...] by: Mukul Joseph MD 04/21/2024 10:14 AM [facility] Dictated By: Mukul Pleitez MD Signed By: <Electronically signed by Mukul Rosado MD in OV> 04/21/24 1014 DD/ 1533 TD/TT: 04/02/24 8170 Architect Marine: [address] [address] Magnetic Resonance Report Signed Patient: Alanis Elizabeth MR#: [id number] 651 : 1945 Acct:[id number] Age/Sex: 79 / F ADM Date: 04/02/24 Loc: HO.MRI Attending Dr: Kristan Sawyer MD Ordering Physician: Earl Sawyer MD Date of Service: 04/02/24 Procedure(s): MR abd omen wo/w con Accession Number(s): [id number] cc: Earl Sawyer MD; Harvey Soria MD [...] 04/21/24 1014 DD/ 1533 TD/TT: 04/02/24 1730 Architect Marine: US abdomen complete Reviewed date:04/23/2024 11:17:08 PM Interpretation: Performing Lab: Notes/Report: [address] [address] Ultrasound Report Signed Patient: Yolanda Elizabeth MR#: [id number] 651 : 1945 Acct:[id number] Age/Sex: 79 / F ADM Date: 04/02/24 Loc: HO.US Attending Dr: Earl Sawyer MD Ordering Physician: Earl Sawyer MD Date of Service: 04/02/24 Procedure(s): US abdomen complete Accession Number(s): [id number] cc: Earl Sawyer MD; Harvey Soria MD [...] by: Eleazar Peraza MD 04/19/2024 11:54 AM [facility] Dictated By: Eleazar Peraza MD Signed By: <Electronically signed by Eleazar Peraza MD in OV> 04/19/24 1154 DD/ 0837 TD/TT: 04/02/24 0907 Architect Marine: [address] [address] Ultrasound Report Signed Patient: Alanis Elizabeth MR#: [id number] 651 : 1945 Acct:[id number] Age/Sex: 79 / F ADM Date: 04/02/24 Loc: HO.US Attending Dr: Kristan Sawyer MD Ordering Physician: Earl Sawyer MD Date of Service: 04/02/24 Procedure(s): US abd omen complete Accession Number(s): [id number] cc: Earl Sawyer MD; Harvey Soria MD [...] 04/19/24 1154 DD/ 0837 TD/TT: 04/02/24 0907 Architect Marine: Reason For Referral No Information Medications Medication [...] Problem Status W/U Status Risk Notes Problem 578077473 Colon cancer screening (Z12.11) Active confirmed Problem 75208147 Rectal bleeding (K62.5) Active confirmed Problem 876552723 Bloating (R14.0) Active confirmed Problem 540978558 medical terminologist (curre nt) use of non-steroidal anti-inflammatories (NSAID) (Z79.1) Active confirmed Problem 537018220 Generalized abdominal pain (R10.84) Active confirmed Problem 101725036 Abnormal CT scan , gastrointestinal tract (R93.3) Active confirmed Problem 171788383 Diverticulosis o f large intestine without hemorrhage (K57.30) Active confirmed Problem 08567976 Constipation, unspecified constipation type (K59.00) Active confirmed Problem 46818500 Change in bowel movement (R19.8) Active confirmed Problem 36637001916431195 Abnormal abdom inal CT scan (R93.5) Active confirmed Problem 316141248 Abdominal mass, unspecified abdominal location (R19.00) Active confirmed Problem 717148925081842 Gallbladder mass (K82.8) Active confirmed Problem 197493688 Abdominal mass o f other site (R19.09) Active confirmed Problem 246080658 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 Vital Signs Temperature 96.8 degrees Fahrenheit 03/22/2024 Blood pressure diastolic 00 mm Hg 03/22/2024 Height 57.75 in 03/22/2024 Blood pressure systolic 000 mm Hg 03/22/2024 Weight 139 lb 6 oz lbs 03/22/2024 BMI 29.38 kg/m2 03/22/2024 Encounters Encounter Location Date Provider Diagnosis [facility] [address] [place] [phone] 03/22/2024 Earl Sawyer Jr Abnormal CT scan, gastrointestinal tract R93.3 ; Gallbladder mass K82.8 and Abdominal mass of other site R19.09 [facility] [address] [place] [address] 03/09/2024 Earl Sawyer Jr [facility] [address] [place] [phone] 03/17/2024 Earl Sawyer Jr [facility] [address] [place] [phone] 03/29/2024 Earl Sawyer Jr Abdominal mass, unspecified abdominal location R19.[address] scan R93.5 [facility] [address] [place] [address] 03/30/2024 Earl Sawyer Jr [facility] [address] [place] [address] 04/19/2024 Earl Sawyer Jr Mesenteric mass K63.89 [facility] [address] [place] [address] 04/21/2024 Earl aSwyer Jr [facility] [address] [place] [address] 05/10/2024 Earlcandi Sawyer Jr [facility] [address] [place] [address] 06/23/2024 Earl Sawyer Jr Generalized abdominal pain R10.84 and Change in bowel movement R19.8 [facility] [address] [place] [address] 07/01/2024 Earl Sawyer Jr [facility] [address] [place], [place] [address], [place] [address] 08/19/2024 Earl Sawyer Jr Generalized abdominal pain R10.84 [...] 06/23/2024 Generalized abdominal pain (ICD-10 - R10.84) 08/19/2024 Generalized abdominal pain (ICD-10 - R10.84) 08/19/2024 Change in bowel movement (ICD-10 - R19.8) 03/22/2024 Abdominal mass of other site (ICD-10 [...] Pending Test Test Name Order Date BUN 08/19/2024 BUN 06/23/2024 CREATININE 08/19/2024 CREATININE 06/23/2024 LIVER PROFILE 06/23/2024 LIPASE 06/23/2024 CBC w/o DIFF 06/23/2024 CT ABD & PELVIS WITH CONTRAST 06/23/2024 CT COLON SCREENING NO CONTRAST 7 CT COLON SCREENING NO CONTRAST 8 Future Test Test Name Order Date COLONOSCOPY 06/26/2011 COLONOSCOPY 01/15/2017 COLONOSCOPY 11/22/2020 US ABD 03/22/2024 Next Appt Details Provider Name:Earl ortiz Jr, 10/18/2024 10:00:00 AM, [address] [facility], [address], [place], [address], Insurance Providers Payer Name Payer Address Payer Phone Subscriber Number Group Number Insured Name Patient Relationship to Insured Coverage Start Date Coverage End Date MEDICARE OF [place] [address] [place] [id number] YOLANDA ELIZABETH Self - patient is the insured Medical (General) History Medical History History ICD Code Hyperlipidemia Hypertension Asthma Glucose intolerance Arthritis Gastroesophageal reflux disease Dementia, Alzheimer type, mild Colonoscopy 11/29, diverticul osis, hemorrhoids. Followup not necessary due to age. Surgical History Surgery Date(Month/Year) D&C tubal ligation
[2024-10-06 09:40] LABS: Creatinine POC 0.7 mg/dL (0.5-1.4); GFR POC > 60
[2024-10-06] MEDS: iohexoL 350 MG/ML 100 ML INFUS..BTL IV (09:54)
== END 2024-10-06 08:54 | disposition home or self-care (01) ==
LOC: HO.CT 08:53
PROVIDERS: PCP Internal Medicine; Visit Provider Internal Medicine Gastroenterology
DX: R10.84 Generalized abdominal pain (principal)
CPT/HCPCS: 74177; 82565; Q9967

== ENCOUNTER → 2024-10-06 09:21 | Outpatient (BNV) | payer MEDICARE, SELFPAY | PROVIDERS: PCP Internal Medicine; Visit Provider Radiology Diagnostic Radiology | DX: I88.0 Nonspecific mesenteric lymphadenitis (principal) | CPT/HCPCS: 74177 ==

== ENCOUNTER 2024-12-02 11:41 | Outpatient (AMB) | payer MEDICARE, SELFPAY ==
--- NOTE | 2024-12-02 11:43 | MHC.OFFVIS ---
Intake Visit Reasons: AD Allergies codeine (CODEINE) Allergy (Severe, Verified 08/20/24 09:56) DIFFICULTY BREATHING meperidine (Demerol) Allergy (Unknown, Verified 08/20/24 09:56) Nausea and Vomiting From DARVON Allergy (Severe, Uncoded 08/20/24 09:56) SHORTNESS OF BREATH Codeine Phosphate Allergy (Unknown, Uncoded 08/20/24 09:56) Nausea and Vomiting Darvon Allergy (Unknown, Uncoded 08/20/24 09:56) Shortness of Breath Medication List - Last Reconciled 12/02/24 by Myriam Yadav MD ascorbic acid (vitamin C) (Vitamin C) 1,000 mg PO DAILY atorvastatin 1 tab PO BEDTIME furosemide 1 tab PO DAILY levalbuterol tartrate 45 mcg/actuation 2 puffs inhalation Q4-6H PRN lisinopril 1 tab PO DAILY metoprolol succinate ER 1 tab PO DAILY nifedipine ER 30 mg PO DAILY omeprazole 1 cap PO DAILY potassium chloride ER 40 mEq (2 x 20 mEq) PO DAILY sertraline mg PO DAILY vitamin B complex 1 tab PO DAILY HPI Comments Details: 79-year-old woman with hypertension, hyperlipidemia, GERD, and asthma related to seasonal allergies is here with her daughter for memory issues started around 2021. Clinical picture was suggestive of Alzheimer type dementia. She was doing ok. Sleep was still the same and many times she was up until 3am. Mood was ok. No loss of bladder control. Walking was ok. No significant other behavioral issues. She was not driving. Her daughter was managing her finances. [facility] Medical History GERD (gastroesophageal reflux disease) Arthritis Glucose intolerance Asthma HTN (hypertension) HLD (hyperlipidemia) Surgical History H/O dilation and curettage H/O tubal ligation Family History Mother No problems noted. Father No problems noted. Social History Household Members: None Housing: House Do you presently have visiting nurse or other home services: No Patient Tobacco Use Status: Never used Tobacco e-Cigarette/Vaping Use: Never Used Second Hand Smoke Exposure: No service: No Current occupational status: retired Cognitive needs: No Hearing needs: No Vision needs: Yes (reading glasses) Review of Systems Const Details: Constitutional:?No fever, chills, fatigue, weight loss, or night sweats. HEENT:?No headache, vision changes, hearing loss, nasal congestion, sore throat. Neurological:? Complain of forgetfulness Psychiatric:?No anxiety, depression, mood swings, sleep disturbance, or hallucinations. Endocrine:?No heat/cold intolerance, polydipsia, polyuria, or hair/skin changes. Hematologic/Lymphatic:?No easy bruising, bleeding, or lymphadenopathy. Integumentary (Skin):?No rash, lesions, itching, or color changes. ? Physical Exam Neuro Other: Mental Status: Alert and oriented to person, place, and time. Normal attention. Normal spontaneous speech, fluency, and comprehension. Cranial Nerves: CN II: Visual carrasquillo full to confrontation, visual acuity intact. CN III, IV, : Pupils equal, round, reactive to light and accommodation. Extraocular movements are normal. CN V: Facial sensation is normal. CN VII: Facial movements symmetrical. CN VIII: Hearing intact to bedside conversation is normal. CN IX, X: Palate elevates symmetrically. CN XI: Shoulder shrug and head turn symmetrical. CN XII: Tongue midline without atrophy or fasciculations. Extrapyramidal: Full facial expressions and blinking. No rigidity. Movements are appropriate with no tremor or abnormality. Speech: Normal; no dysarthria or tremor. Assessment & Plan Assessment & Plan (1) Alzheimer dementia: Code(s): G30.9 - Alzheimer's disease, unspecified; F02.80 - Dementia in other diseases classified elsewhere, unspecified severity, without behavioral disturbance, psychotic disturbance, mood disturbance, and anxiety Category: Medical Qualifiers: Alzheimer's disease onset: unspecified onset Dementia severity: mild Dementia behavioral or psychological symptom: without behavioral, psychotic, or mood disturbance or anxiety Qualified Code(s): G30.9 - Alzheimer's disease, unspecified; F02.A0 - Dementia in other diseases classified elsewhere, mild, without behavioral disturbance, psychotic disturbance, mood disturbance, and anxiety (2) Delayed sleep phase syndrome: Code(s): 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 - Circadian rhythm sleep disorder, delayed sleep phase type Category: Medical Plan Impression: a: Probably Alzheimer type dementia b: Sleep disorder c: Anxiety Rec: a: Sertraline 25mg a day b: Donepezil 5mg a day Orders: Orders Vitamin B12 and Folate Today F02.A0 - Dementia in other diseases classified elsewhere, mild, without behavioral disturbance, psychotic disturbance, mood disturbance, and anxiety, G30.9 - Alzheimer's disease, unspecified Medications: New donepezil 5 mg PO DAILY 90 tabs 0RF sertraline 25 mg PO DAILY 90 tabs 0RF Coding Level of Care Code Tele Est Pt Level 4 (06976) Diagnoses Mild Alzheimer's dementia without behavioral disturbance, psychotic disturbance, mood disturbance, or anxiety, unspecified timing of dementia onset G30.9; F02.A0 Alzheimer's disease onset: unspecified onset Dementia severity: mild Dementia behavioral or psychological symptom: without behavioral, psychotic, or mood disturbance or anxiety Delayed sleep phase syndrome G47.21
--- OUTSIDE RECORDS SUMMARY | 2024-12-02 12:32 | XMS_ITS | Patient Health Record ---
Author Organization [facility] Address [address] [place] [address] Care Team Providers Care Application Release Manager Name Role Phone Angie Fry M.D. Primary Care Provider Unavail Earl Cruz Jr Unavailable Allergies Allergen (clinical drug ingredient) Drug/Non Drug Allergy documented on EMR Reaction Allergy Type Onset Date Status meperidine Demerol Unknown Drug Allergy Active codeine codeine (uncoded) Unknown Allergy Ac tive darvon (uncoded) Unknown Allergy Act matteo Results Component Value Reference Range Notes MR abdomen wo/w con Reviewed date:04/23/2024 11:17:01 PM Interpretation: Performing Lab: Notes/Report: [address] [address] Magnetic Resonance Report Signed Patient: Yolanda Elizabeth MR#: [id number] 651 : 1945 Acct:[id number] Age/Sex: 79 / F ADM Date: 04/02/24 Loc: HO.MRI Attending Dr: Earl Sawyer MD Ordering Physician: Earl Sawyer MD Date of Service: 04/02/24 Procedure(s): MR abdomen wo/w con Accession Number(s): [id number] cc: Earl Sawyer MD; Harvey Soria MD [...] 04/21/2024 10:14 AM EST Dictated By: Mukul Pleitez MD Signed By: <Electronically signed by Mukul Rosado MD in OV> 04/21/24 1014 DD/ 1533 TD/TT: 04/02/24 1730 Washing Machine Striper: US abdomen complete Reviewed date:04/23/2024 11:17:08 PM Interpretation: Performing Lab: Notes/Report: [address] [address] Ultrasound Report Signed Patient: Yolanda Elizabeth MR#: [id number] 651 : 1945 Acct:[id number] Age/Sex: 79 / F ADM Date: 04/02/24 Loc: HO.US Attending Dr: Earl Sawyer MD Ordering Physician: Earl Sawyer MD Date of Service: 04/02/24 Procedure(s): US abdomen complete Accession Number(s): [id number] cc: Earl Sawyer MD; Harvey Soria MD [...] 04/19/24 1154 DD/ 0837 TD/TT: 04/02/24 0907 Washing Machine Striper: CT abdomen pelvis w con Reviewed date:10/07/2024 11:18:26 AM Interpretation: Performing Lab: Notes/Report: [address] [address] [address] Scan Report Signed Patient: Yolanda Elizabeth MR#: [id number] 651 : 1945 Acct:[id number] Age/Sex: 79 / F ADM Date: 10/06/24 Loc: HO.CT Attending Dr: Earl Sawyer MD Ordering Physician: Earl Sawyer MD Date of Service: 10/06/24 Procedure(s): CT abdomen pelvis w IV con Accession Number(s): [id number] cc: Earl Sawyer MD; Angie Fry MD Report Number: [id number]: Total DLP = 317.00 mGy-cm EXAMINATION: CT ABDOMEN PELVIS WITH IV CONTRAST HISTORY: abd pain COMPARISON: Comparison is made with the prior examination dated 02/09/2024. TECHNIQUE: CT scan of the abdomen and pelvis was performed following administration of 85 mL Omnipaque 350 using standard departmental protocol. Coronal and sagittal reformatted images were generated and reviewed. The patient received oral contrast material. This CT exam was performed with one or more of the following dose reduction techniques: automated exposure control, adjustment of the mA and/or kV according to patient size, use of iterative reconstruction technique. DLP: 317 mGy-cm FINDINGS: LOWER CHEST: The visualized lung bases are clear. There is no pleural effusion. CARDIOVASCULATURE: The heart is normal in size. There is no pericardial effusion. LIVER: The liver is normal in size and contour. No liver mass is identified. The hepatic and portal veins are patent. GALLBLADDER / BILE DUCTS: Again seen is focal wall thickening of the fundus of the gallbladder. No calcified stones are identified. There is no intra or extrahepatic biliary ductal dilatation. SPLEEN: The spleen is normal in size. No focal splenic lesion is identified. PANCREAS: The pancreas is unremarkable in appearance. ADRENAL GLANDS: Within normal limits. KIDNEYS/RETROPERITONEUM: No renal calculi are identified. There is no hydronephrosis. There is scarring at the lower pole of the left kidney. There are left renal cysts measuring up to 10 mm in size. LYMPH NODES: Again seen are prominent lymph nodes at the root of the mesentery. There is diffuse mesenteric infiltration as seen previously. VASCULATURE: The abdominal aorta demonstrates atherosclerotic calcification, but is normal in caliber. MESENTERY/PERITONEUM: No ascites is seen in the abdomen or pelvis. Again seen is a partially calcified mass at the root of the mesentery measuring approximately 3.2 x 1.8 x 2.6 cm which is slightly smaller than on the prior study. This is suggestive of a carcinoid tumor. There is no free intraperitoneal gas. STOMACH: Again seen is a large hiatal hernia. SMALL BOWEL: The small bowel is normal in caliber. COLON: There is a large amount of stool throughout the colon. Again seen is wall thickening of the sigmoid colon and multiple sigmoid diverticuli. APPENDIX: The appendix is mildly dilated measuring up to 7 mm in diameter and the tip is slightly hyperemic. There are no periappendiceal inflammatory changes. URINARY BLADDER/PELVIC ORGANS: The urinary bladder is unremarkable. The uterus is unremarkable. BONES / SOFT TISSUES: There is degenerative disc disease of the spine. CT/CT abdomen pelvis w IV con IMPRESSION: 1. Slight interval decrease in size of the previously noted partially calcified mass at the root of the mesentery suspicious for a carcinoid tumor. There is associated prominent lymph nodes at the root of the mesentery and diffuse mesenteric infiltration, without change. 2. Large amount of stool throughout the colon. Wall thickening of the sigmoid colon which may be secondary to chronic diverticulosis. A mass is not excluded, however. This could be further evaluated with sigmoidoscopy. 3. Focal wall thickening of the fundus of the gallbladder as seen previously. 4. Prominent appendix which is mildly dilated and demonstrates hyperemia of the tip. No periappendiceal inflammatory changes are seen, however. Electronically signed by: Ponce Vásquez MD 10/06/2024 10:28 AM EDT Dictated By: Ponce Vásquez MD Signed By: <Electronically signed by Ponce Vásquez MD in OV> 10/06/24 1028 DD/ 0921 TD/TT: 10/06/24 0953 Washing Machine Striper: Creatinine GFR POC Reviewed date:10/06/2024 04:40:52 PM Interpretation: Performing Lab:[facility], [address] [place] [id number] Notes/Report: [id number] 0.66 >60 0911 [place] Creatinine POC 0.7 0.5-1.4 mg/dL GFR POC > 60 Chronic Kidney Disease: Estimated GFR < 60 mL/min/1.73m2 Severe Kidney Disease: Estimated GFR < 15 mL/min/1.73m2 Reason For Referral No Information Medications Medication SIG (Take, Route, Frequency, Duration) Notes Start Date End Date Status Sertraline HCl 25 MG 1 tablet Orally Onc e a day for 30 day(s) Active Vitamin D Active Vitamin B + C Complex - as directed Orally Active Vitamin C 500 MG as directed Orally Active NIFEdipine 30 MG 1 tablet Orally Once a day Active Lisinopril 5 MG 1 tablet Orally Once a day Active Atorvastatin Calcium 10 MG 1 tablet Oral ly Once a day Active PreserVision AREDS 2 1 1 Orally QD Active Furosemide 40 MG 1 tablet Orally Once a day Active CoQ10 200 MG 1 capsule with a lillie l Orally Once a day Active Ventolin HFA 108 (90 Base) MCG/ACT 2 puffs as needed Inhalation every 4 hrs/prn Active Flovent Diskus 50 MCG/BLIST 1 puff Inhal ation Twice a day/prn Active Omeprazole 10 MG 1 capsule Orally Onc e a day Active Metoprolol Succinate ER 25 MG 1 tablet Orally Once a day Active Glucosamine Complex/Vitamin D3 1000 2 Orally QD Active Vitamin B Complex 1 1 Orally QD Active Vitamin C Adult Gummies 125 MG 1 Orally QD Active Potassium 99 MG 1 tablet Orally Once a day Active flovent HFA 1 tab Oral for 14 days Active Immunizations Vaccine Route Administration Date Status Comme nts Flu vaccine no Preserv 3 and > Unknown 02/28/2016 Admin istered Influenza Unknown 01/11/2020 Administered Influenza Unknown 03/16/2024 Administered Problems Problem Type SNOMED Code ICD Code Onset Dates Problem Status W/U Status Risk Notes Problem 450238099 Colon cancer screening (Z12.11) Active confirmed Problem 27124124 Rectal bleeding (K62.5) Active confirmed Problem 359016799 Bloating (R14.0) Active confirmed Problem 489636493 snf (curre nt) use of non-steroidal anti-inflammatories (NSAID) (Z79.1) Active confirmed Problem 162457122 Generalized abdominal pain (R10.84) Active confirmed Problem 505109883 Abnormal CT scan , gastrointestinal tract (R93.3) Active confirmed Problem 881716281 Diverticulosis o f large intestine without hemorrhage (K57.30) Active confirmed Problem 98568995 Constipation, unspecified constipation type (K59.00) Active confirmed Problem 43759548 Change in bowel movement (R19.8) Active confirmed Problem 56687846910206866 Abnormal abdom inal CT scan (R93.5) Active confirmed Problem 772746044 Abdominal mass, unspecified abdominal location (R19.00) Active confirmed Problem 473490839921013 Gallbladder mass (K82.8) Active confirmed Problem 083200323 Abdominal mass o f other site (R19.09) Active confirmed Problem 781286215 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 Vital Signs Temperature 97.4 degrees Fahrenheit 10/18/2024 Blood pressure diastolic 01 mm Hg 10/18/2024 Height 57.75 in 10/18/2024 Blood pressure systolic 001 mm Hg 10/18/2024 Weight 136.6 lbs 10/18/2024 BMI 28.79 kg/m2 10/18/2024 Encounters Encounter Location Date Provider Diagnosis [facility] [address] [place] [address] 03/22/2024 Earl Sawyer Jr Abnormal CT scan, gastrointestinal tract R93.3 ; Gallbladder mass K82.8 and Abdominal mass of other site R19.09 [facility] [address] [place] [address] 10/18/2024 Earl Sawyer Jr Mesenteric mass K63.89 ; Diverticulosis of large intestine without hemorrhage K57.30 and Gallbladder mass K82.8 [facility] [address] [place] [address] 03/09/2024 Earl Sawyer Jr [facility] [address] [place] [address] 03/17/2024 Earl Sawyer Jr [facility] [address] [place] [address] 03/29/2024 Earl Sawyer Jr Abdominal mass, unspecified abdominal location R19.[address] scan R93.5 [facility] [address] [place] [address] 03/30/2024 Earl Sawyer Jr [facility] [address] [place] [address] 04/19/2024 Earl Sawyer Jr Mesenteric mass K63.89 [facility] [address] [place] [address] 04/21/2024 Earl Sawyer Jr [facility] [address] [place] [address] 05/10/2024 Earl Sawyer Jr [facility] [address] [place] [address] 06/23/2024 Earl Sawyer Jr Generalized abdominal pain R10.84 and Change in bowel movement R19.8 [facility] [address] [place] [address] 07/01/2024 Earl Sawyer Jr [facility] [address] [place] [address] 08/19/2024 Earl Sawyer Jr Generalized abdominal pain R10.84 and Change in bowel movement R19.8 [facility] [address] [place] [address] 10/07/2024 Earl Sawyer Jr [facility] [address] [place] [address] 10/12/2024 Earl Sawyer Jr Assessments Encounter Date Diagnosis [...] this with Yolanda and her daughter today. 10/18/2024 Diverticulosis of large intestine without hemorrhage (ICD-10 - K57.30) At this time, she is doing well. We reviewed the findings from her imaging studies in detail today. We recommended she continue to follow a high-fiber diet and discussed what to watch for in terms of symptoms of diverticulitis. The mesenteric mass at this time seems benign based on its imaging characteristics , and follow-up could be done in 1 year. Her gallbladder ultrasound also appears stable. We discussed this today. Today's visit was 30 minutes. 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 We reviewed the findings from her imaging studies in detail today. We recommended she continue to follow a high-fiber diet and discussed what to watch for in terms of symptoms of diverticulitis. The mesenteric mass at this time seems benign based on its imaging characteristics , and follow-up could be done in 1 year. Her gallbladder ultrasound also appears stable. We discussed this today. Today's visit was 30 minutes. 03/29/2024 Abdominal mass, unspecified abdominal location (ICD-10 [...] this with Yolanda and her daughter today. 10/18/2024 Gallbladder mass (ICD-10 - K82.8) At this time, she is doing well. We reviewed the findings from her imaging studies in detail today. We recommended she continue to follow a high-fiber diet and discussed what to watch for in terms of symptoms of diverticulitis. The mesenteric mass at this time seems benign based on its imaging characteristics , and follow-up could be done in 1 year. Her gallbladder ultrasound also appears stable. We discussed this today. Today's visit was 30 minutes. 03/29/[address] scan (ICD-10 - R93.5) 06/23/2024 Change in bowel movement (ICD-10 - R19.8) Plan Of Treatment Pending Test Test Name Order Date BUN 06/23/2024 BUN 08/19/2024 CREATININE 06/23/2024 CREATININE 08/19/2024 LIVER PROFILE 06/23/2024 LIPASE 06/23/2024 CBC w/o DIFF 06/23/2024 CT ABD & PELVIS WITH CONTRAST 06/23/2024 CT COLON SCREENING NO CONTRAST 8 CT COLON SCREENING NO CONTRAST 7 Future Test Test Name Order Date COLONOSCOPY 06/26/2011 COLONOSCOPY 01/15/2017 COLONOSCOPY 11/22/2020 US ABD 03/22/2024 Next Appt Details Provider Name:Earl ortiz Jr, 10/24/2025 09:00:00 AM, [address] [facility], [address], [place], [address], Insurance Providers Payer Name Payer Address Payer Phone Subscriber Number Group Number Insured Name Patient Relationship to Insured Coverage Start Date Coverage End Date MEDICARE OF [place] [address] [place] [address] [id number] YOLANDA ELIZABETH Self - patient is the insured [employer] CLAIMS [address] [place] [address] [id number] YOLANDA ELIZABETH Self - patient is the insured Medical (General) History Medical History History ICD Code Hyperlipidemia Hypertension Asthma Glucose intolerance Arthritis Gastroesophageal reflux disease Dementia, Alzheimer type, mild Colonoscopy 11/29, diverticul osis, hemorrhoids. Followup not necessary due to age. Surgical History Surgery Date(Month/Year) tubal ligation D&C
== END 2024-12-02 13:20 | disposition home or self-care (01) ==
LOC: HO.HSM 11:42
PROVIDERS: PCP Internal Medicine; Visit Provider Psychiatry & Neurology Neurology
DX: G30.9 Alzheimer's disease, unspecified (principal); F02.A0 Dementia in other diseases classified elsewhere, mild, without behavioral disturbance, psychotic disturbance, mood disturbance, and anxiety; G47.21 Circadian rhythm sleep disorder, delayed sleep phase type
CPT/HCPCS: 99214

== ENCOUNTER 2024-12-02 12:19 | Outpatient (REF) | payer MEDICARE, SELFPAY ==
[2024-12-02 14:13] LABS: Folate 14.7 ng/mL (> or = 4.0); Vitamin B12 1850 pg/mL (200-900)
== END 2024-12-02 12:20 | disposition home or self-care (01) ==
LOC: HO.10HDL 12:19
PROVIDERS: Visit Provider Psychiatry & Neurology Neurology
DX: G30.9 Alzheimer's disease, unspecified (principal); F02.A0 Dementia in other diseases classified elsewhere, mild, without behavioral disturbance, psychotic disturbance, mood disturbance, and anxiety; G47.21 Circadian rhythm sleep disorder, delayed sleep phase type; I10 Essential (primary) hypertension; Z79.899 Other long term (current) drug therapy; Z98.51 Tubal ligation status
CPT/HCPCS: 36415; 82607; 82746; 99212

== ENCOUNTER 2024-12-31 08:55 | Outpatient (AMB) | payer MEDICARE, SELFPAY ==
--- NOTE | 2024-12-31 08:57 | A.OFFPC_ITS ---
Vital Signs 12/31/24 08:59 Height 4 ft 11 in Weight 60.781 kg BMI 27.1 BP 134/66 Blood Pressure Location Lt brachial Position Sitting Respiration 16 Pulse 59 Pulse Source Pulse Oximeter Temp 97.7 F Temp Source Temporal Artery Scan Pulse Oximetry (%) 98 Oxygen Delivery Method Room Air Intake Visit Reasons: Routine Head Up Operator Helper Required: No Accompanied by: Daughter Allergies codeine (CODEINE) Allergy (Severe, Verified 12/31/24 08:58) DIFFICULTY BREATHING meperidine (Demerol) Allergy (Unknown, Verified 12/31/24 08:58) Nausea and Vomiting From DARVON Allergy (Severe, Uncoded 08/20/24 09:56) SHORTNESS OF BREATH Codeine Phosphate Allergy (Unknown, Uncoded 08/20/24 09:56) Nausea and Vomiting Darvon Allergy (Unknown, Uncoded 08/20/24 09:56) Shortness of Breath Medication List - Last Reconciled 12/31/24 by CHARLIE Hyde ascorbic acid (vitamin C) (Vitamin C) 1,000 mg PO DAILY atorvastatin 1 tab PO BEDTIME donepezil 5 mg PO DAILY furosemide 1 tab PO DAILY levalbuterol tartrate 45 mcg/actuation 2 puffs inhalation Q4-6H PRN lisinopril 1 tab PO DAILY metoprolol succinate ER 1 tab PO DAILY nifedipine ER 30 mg PO DAILY omeprazole 1 cap PO DAILY potassium chloride ER 40 mEq (2 x 20 mEq) PO DAILY sertraline 25 mg PO DAILY Tobacco use date assessed: 08/20/24 Dental Screening Dental Screen Date: 08/20/24 HPI HPI Comments History of Present Illness Details 79-year-old female presenting to the off ice for follow-up on hypertension, hyperlipidemia, GERD, asthma, diverticulosis, Alzheimer's dementia, prediabetes. Last seen by PCP 09/2024 Hypertension-compliant with lisinopril, nifedipine, metoprolol. Blood pressure in the office today Hyperlipidemia-on atorvastatin. Last LDL 84 GERD-stable on omeprazole Asthma-no recent exacerbation. Xopenex as needed Alzheimer's dementia-following with _ in Neurology. On donepezil and sertraline. Safe at home- lives several doors down from daughter. Daughter manages finances. Otherwise independent. Follows with Dr. Yadav Concerns: Pain in the R buttock ongoing 1 week, no injury. Worst when walking or with prolong sitting. Occ radiation into the RLE. Bilateral knee pain longstanding. Worst with prolonged standing, feels stiffness. Improved with walking. Taking tylenol. Health maintenance: Last mammogram 08/2024, negative for malignancy but has been following due to a minimally complicated cyst that has been decreasing in size and not significantly changed over 2 years. Breast ultrasound showing the same. One year follow-up ROS: General: No fevers, malaise, unintentional weight loss HEENT: No blurred vision, diplopia. No sore throat, nasal congestion, rhinorrhea, sinus pain, ear pain Cardiovascular: No chest pain, palpitations, or leg edema Respiratory: No shortness of breath, wheezing, cough GI: No abdominal pain, nausea, vomiting, diarrhea, constipation, melena, hematochezia : No dysuria, hematuria, increased urinary frequency, decreased urinary output MSK: See HPI Neuro: See HPI Skin: No rashes or lesions EXAM: Constitutional - Awake and Alert, No apparent distress Eyes - PERRL Cardiovascular - S1S2, RRR, No edema Respiratory - Normal lung expansion, Normal respiratory effort, No respiratory distress, CTA bilaterally Extremities - no calf tenderness bilaterally, no swelling MSK - no ttp over the low back or SI joint (R) Skin - Warm/Dry Neurological - Alert & oriented x3. No antalgic gait Psychological - Appropriate affect [facility] Medical History (Updated 12/31/24 @ 11:05 by CHARLIE Hyde) Osteoarthritis of knees, bilateral GERD (gastroesophageal reflux disease) Arthritis Glucose intolerance Asthma HTN (hypertension) HLD (hyperlipidemia) Surgical History H/O dilation and curettage H/O tubal ligation Family History Mother No problems noted. Father No problems noted. Social History Household Members: None Housing: House Do you presently have visiting nurse or other home services: No Patient Tobacco Use Status: Never used Tobacco e-Cigarette/Vaping Use: Never Used Second Hand Smoke Exposure: No service: No Current occupational status: retired Cognitive needs: No Hearing needs: No Vision needs: Yes (reading glasses) Questionnaire PHQ-9 Over the last 2 weeks, how often have you been bothered by any of the following problems? 1. Little interest or pleasure in doing things: not at all 2. Feeling down, depressed, or hopeless: more than half the days 3. Trouble falling or staying asleep, or sleeping too much: nearly every day 4. Feeling tired or having little energy: more than half the days 5. Poor appetite or overeating: more than half the days 6. Feeling bad about yourself - or that you are a failure or have let yourself or your family down: several days 7. Trouble concentrating on things, such as reading the newspaper or watching television: more than half the days 8. Moving or speaking so slowly that other people could have noticed. Or the opposite - being so fidgety or restless that you have been moving around a lot more than usual: several days 9. Thoughts that you would be better off or of hurting yourself in some way: not at all Total score: 13 Depression Screening Interpretation: Positive Depression Screening Done: Yes 80910 - PHQ-9 Billing: Yes Source: Developed by Drs. Ponce Cardona, Rhonda Mora, Shorty Gerard and colleagues, with an educational parish from [employer]. Thrive Questionnaire Date Thrive assessed: 12/31/24 I am a: Patient What is your living situation today?: I have a steady place to live Within the past 12 months, did the food you bought not last and you didn't have the money to get more?: Never true Within the past 12 months, did you worry whether your food would run out before you got money to buy more?: Never true Do you have trouble paying for medicines?: No Do you have trouble getting transportation to medical appointments?: No Do you have trouble paying your heating and electricity bill?: No Do you have trouble taking care of your child, family member or friend?: No Do you have trouble with day-to-day activities such as bathing, preparing meals, shopping, managing finances, etc.?: No Are you currently unemployed and looking for a job?: No Are you interested in more education?: No THRIVE Score: 0 AUDIT C Alcohol Use Questionnaire (AUDIT-C) 1. How often do you have a drink containing alcohol?: Never Total Score: 0 CONSUELO-7 AMB Questionnaire CONSUELO-7 Date CONSUELO - 7 assessed: 12/31/24 Feeling nervous, anxious, or on edge: 3 = Nearly every day Not being able to stop or control worryin = Not at all Worrying too much about different things: 1 = Several days Trouble relaxin = More than half the days Being so restless that it is hard to sit still: 2 = More than half the days Becoming easily annoyed or irritable: 3 = Nearly every day Feeling afraid as if something awful might happen: 0 = Not at all Total CONSUELO-7 score (0-4 normal; 5-9 mild; 10-14 moderate; 15-21 severe): 11 Source: Developed by Drs. Ponce Cardona, Rhonda Mora, Shorty Gerard and colleagues, with an educational parish from [employer]. CONSUELO-7 Assessment Billing CONSUELO-7 Assessment Tool: CONSUELO-7 Assessment 09736 Physical exam (Primary Care) Vital Signs: Last Vital Signs Temp 97.7 F 12/31/24 08:59 Pulse 59 12/31/24 08:59 Resp 16 12/31/24 08:59 BP 134/66 12/31/24 08:59 Pulse Ox 98 12/31/24 08:59 Oxygen Delivery Method Room Air 12/31/24 08:59 BMI result Body Mass Index 27.1 Tobacco/Smoking Status: Tobacco use Status Tobacco use date assessed 08/20/24 12/31/24 08:59 Patient Tobacco Use Status Never used Tobacco 12/31/24 08:59 e-Cigarette/Vaping Use Never Used 12/31/24 08:59 PHQ-9: PHQ-9 Score PHQ-9: Total score 13 12/31/24 09:40 Depression Screening Interpretation: Positive Thrive Assessment: Date of Thrive Assessment Date Thrive assessed 12/31/24 12/31/24 09:21 Coding Level of Care Code Est Pt Level 4 (39512) Complex EM visit Add On G2211 Diagnoses Hyperlipidemia, unspecified hyperlipidemia type E78.5 Hyperlipidemia type: unspecified Primary hypertension I10 Hypertension type: primary hypertension Mild Alzheimer's dementia without behavioral disturbance, psychotic disturbance, mood disturbance, or anxiety, unspecified timing of dementia onset G30.9; F02.A0 Alzheimer's disease onset: unspecified onset Dementia behavioral or psychological symptom: without behavioral, psychotic, or mood disturbance or anxiety Dementia severity: mild Osteoarthritis of knees, bilateral M17.0 Sciatica M54.30 Additional Codes PHQ-9 - 72146 - PHQ-9 Billing: Yes ([id number]) CONSUELO-7 Assessment Billing - CONSUELO-7 Assessment Tool: CONSUELO-7 Assessment 84481 ([id number]) Assessment & Plan Assessment & Plan (1) HLD (hyperlipidemia): Code(s): E78.5 - Hyperlipidemia, unspecified Category: Medical Qualifiers: Hyperlipidemia type: unspecified Qualified Code(s): E78.5 - Hyperlipidemia, unspecified Plan: Controlled. Continue atorvastatin (2) HTN (hypertension): Code(s): I10 - Essential (primary) hypertension Category: Medical Qualifiers: Hypertension type: primary hypertension Qualified Code(s): I10 - Essential (primary) hypertension Plan: Controlled. Continue current therapy (3) Alzheimer dementia: Code(s): G30.9 - Alzheimer's disease, unspecified; F02.80 - Dementia in other diseases classified elsewhere, unspecified severity, without behavioral disturbance, psychotic disturbance, mood disturbance, and anxiety Category: Medical Qualifiers: Alzheimer's disease onset: unspecified onset Dementia behavioral or psychological symptom: without behavioral, psychotic, or mood disturbance or anxiety Dementia severity: mild Qualified Code(s): G30.9 - Alzheimer's disease, unspecified; F02.A0 - Dementia in other diseases classified elsewhere, mild, without behavioral disturbance, psychotic disturbance, mood disturbance, and anxiety Plan: Stable, no safety issues. Continue following with Neurology and take medications as prescribed (4) Osteoarthritis of knees, bilateral: Code(s): M17.0 - Bilateral primary osteoarthritis of knee Category: Medical Plan: Not interested in referral to Orthopedic surgery. Not interested in physical therapy at this time we will try exercises provided in the office at home and contact the office should she change her mind. Recommend diclofenac gel (5) Sciatica: Code(s): M54.30 - Sciatica, unspecified side Category: Medical Plan: No alarm symptoms. Not interested in physical therapy at this time but will trial exercises provided in the office and contact the office should she change her mind. Recommend topical analgesics and continue Tylenol as needed Plan Will check vitamin B12 level given elevations last time. Follow-up in the office in 4 months with labs completed prior to visit Orders: Orders Basic Metabolic Panel Today I10 - Essential (primary) hypertension Vitamin B12 Today R79.89 - Other specified abnormal findings of blood chemistry Basic Metabolic Panel 4 Months E78.5 - Hyperlipidemia, unspecified, F02.A0 - Dementia in other diseases classified elsewhere, mild, without behavioral disturbance, psychotic disturbance, mood disturbance, and anxiety, G30.9 - Alzheimer's disease, unspecified, I10 - Essential (primary) hypertension Complete Blood Count Auto Diff 4 Months E78.5 - Hyperlipidemia, unspecified, F02.A0 - Dementia in other diseases classified elsewhere, mild, without behavioral disturbance, psychotic disturbance, mood disturbance, and anxiety, G30.9 - Alzheimer's disease, unspecified, I10 - Essential (primary) hypertension Lipid Panel 4 Months E78.5 - Hyperlipidemia, unspecified, F02.A0 - Dementia in other diseases classified elsewhere, mild, without behavioral disturbance, psychotic disturbance, mood disturbance, and anxiety, G30.9 - Alzheimer's disease, unspecified, I10 - Essential (primary) hypertension Liver Panel 4 Months E78.5 - Hyperlipidemia, unspecified, F02.A0 - Dementia in other diseases classified elsewhere, mild, without behavioral disturbance, psychotic disturbance, mood disturbance, and anxiety, G30.9 - Alzheimer's disease, unspecified, I10 - Essential (primary) hypertension Medications: New diclofenac sodium 1% apply to single knee, ankle, foot; for foot includes sole/toes/top of foot 4 grams topical QID 100 grams 1RF E78.5 - Hyperlipidemia, unspecified, F02.A0 - Dementia in other diseases classified elsewhere, mild, without behavioral disturbance, psychotic disturbance, mood disturbance, and anxiety, G30.9 - Alzheimer's disease, unspecified, I10 - Essential (primary) hypertension, M17.0 - Bilateral primary osteoarthritis of knee
[2024-12-31 08:59] VITALS: BP 134/66; PULSE 59; RESP 16; TEMP 36.5; O2SAT 98; BMI 27.1
--- OUTSIDE RECORDS SUMMARY | 2024-12-31 09:09 | XMS_ITS | Patient Health Record ---
Author Organization [facility] Address [address] [place] [address] Care Team Providers Care Regulatory Affairs Portfolio Leader Name Role Phone Angie Fry M.D. Primary [...] date:04/23/2024 11:17:01 PM Interpretation: Performing Lab: Notes/Report: [address] [address] Magnetic Resonance Report Signed Patient: Yolanda Elizabeth MR#: [id number] 651 : 1945 Acct:[id number] Age/Sex: 79 / F ADM Date: 04/02/24 Loc: HO.MRI Attending Dr: Earl Sawyer MD Ordering Physician: Earl Sawyer MD Date of Service: 04/02/24 Procedure(s): MR abdomen wo/w con Accession Number(s): [id number] cc: Earl Sawyer MD; Harvey Soria MD [...] 04/21/24 1014 DD/ 1533 TD/TT: 04/02/24 1730 Chief Engineer Research: US abdomen complete Reviewed date:04/23/2024 11:17:08 PM Interpretation: Performing Lab: Notes/Report: [address] [address] Ultrasound Report Signed Patient: Yolanda Elizabeth MR#: [id number] 651 : 1945 Acct:[id number] Age/Sex: 79 / F ADM Date: 04/02/24 Loc: HO.US Attending Dr: Earl Sawyer MD Ordering Physician: Earl Sawyer MD Date of Service: 04/02/24 Procedure(s): US abdomen complete Accession Number(s): [id number] cc: Earl Sawyer MD; Harvey Soria MD [...] 04/19/24 1154 DD/ 0837 TD/TT: 04/02/24 0907 Chief Engineer Research: CT abdomen pelvis w con Reviewed date:10/07/2024 11:18:26 AM Interpretation: Performing Lab: Notes/Report: [address] [address] [address] Scan Report Signed Patient: Yolanda Elizabeth MR#: [id number] 6[birth year] : 1945 Acct:[id number] Age/Sex: 79 / F ADM Date: 10/06/24 Loc: HO.CT Attending Dr: Earl Sawyer MD Ordering Physician: Earl Sawyer MD Date of Service: 10/06/24 Procedure(s): CT abdomen pelvis w IV con Accession Number(s): [id number] cc: Earl Sawyer MD; Angie Fry MD Report Number: [id number]: Total DLP = 317.00 mGy-cm EXAMINATION: CT [...] 10/06/24 1028 DD/ 0921 TD/TT: 10/06/24 0953 Chief Engineer Research: Creatinine GFR POC Reviewed date:10/06/2024 04:40:52 PM Interpretation: Performing Lab:[facility], [address] [place] [address] Notes/Report: [id number] 0.66 >60 0911 HOKETTY Creatinine POC 0.7 [...] Problem Status W/U Status Risk Notes Problem 679213381 Colon cancer screening (Z12.11) Active confirmed Problem 92229252 Rectal bleeding (K62.5) Active confirmed Problem 600434243 Bloating (R14.0) Active confirmed Problem 282332353 half-way (curre nt) use of non-steroidal anti-inflammatories (NSAID) (Z79.1) Active confirmed Problem 964457473 Generalized abdominal pain (R10.84) Active confirmed Problem 740519512 Abnormal CT scan , gastrointestinal tract (R93.3) Active confirmed Problem 969939625 Diverticulosis o f large intestine without hemorrhage (K57.30) Active confirmed Problem 92989169 Constipation, unspecified constipation type (K59.00) Active confirmed Problem 33038477 Change in bowel movement (R19.8) Active confirmed Problem 61876831910419356 Abnormal abdom inal CT scan (R93.5) Active confirmed Problem 521596053 Abdominal mass, unspecified abdominal location (R19.00) Active confirmed Problem 756659788952835 Gallbladder mass (K82.8) Active confirmed Problem 109384472 Abdominal mass o f other site (R19.09) Active confirmed Problem 911580959 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 Vital Signs Temperature 97.4 degrees Fahrenheit 10/18/2024 Blood pressure diastolic 01 mm Hg 10/18/2024 Height 57.75 in 10/18/2024 Blood pressure systolic 001 mm Hg 10/18/2024 Weight 136.6 lbs 10/18/2024 BMI 28.79 kg/m2 10/18/2024 Encounters Encounter Location Date Provider Diagnosis [facility] [address] [place] [address] 03/22/2024 Earl Sawyer Jr Abnormal CT scan, gastrointestinal tract R93.3 ; Gallbladder mass K82.8 and Abdominal mass of other site R19.09 [facility] [address] [place] [address] 10/18/2024 Earl Sawyer Jr Mesenteric mass K63.89 ; Diverticulosis of large intestine without hemorrhage K57.30 and Gallbladder mass K82.8 [facility] [address] [place] [address] 03/09/2024 Earl Sawyer Jr [facility] [address] [place] [address] 03/17/2024 Earl Sawyer Jr [facility] [address] [place] [address] 03/29/2024 Earl Sawyer Jr Abdominal mass, unspecified abdominal location R19.[address] scan R93.5 [facility] [address] [place] [address] 03/30/2024 Earl Sawyer Jr [facility] [address] [place] [address] 04/19/2024 Earl Sawyer Jr Mesenteric mass K63.89 [facility] [address] [place] [address] 04/21/2024 Earl Sawyer Jr [facility] [address] [place] [address] 05/10/2024 Earl Sawyer Jr [facility] [address] [place] [address] 06/23/2024 Earl Sawyer Jr Generalized abdominal pain R10.84 and Change in bowel movement R19.8 [facility] [address] [place] [address] 07/01/2024 Earl Sawyer Jr [facility] [address] [place] [address] 08/19/2024 Earl Sawyer Jr Generalized abdominal pain R10.84 and Change in bowel movement R19.8 [facility] [address] [place] [address] 10/07/2024 Earl Sawyer Jr [facility] [address] [place] [address] 10/12/2024 Earl Sawyer Jr Assessments Encounter Date [...] of this lesion. We discussed this with Yolanad and her daughter today. 10/18/2024 Gallbladder mass [...] Name:Earl ortiz Jr, 10/24/2025 09:00:00 AM, [address] [facility], [address], [place], [address], Insurance Providers Payer Name Payer Address Payer Phone Subscriber Number Group Number Insured Name Patient Relationship to Insured Coverage Start Date Coverage End Date MEDICARE OF [place] [address] [place] [address] [id number] YOLANDA ELIZABETH Self - patient is the insured [employer] ATTN CLAIMS [address] [place] [address] [id number] YOLANDA ELIZABETH Self - patient is the insured Medical (General) History Medical History History ICD Code Hyperlipidemia Hypertension Asthma Glucose intolerance Arthritis Gastroesophageal reflux disease Dementia, Alzheimer type, mild Colonoscopy 11/29, diverticul osis, hemorrhoids. Followup not necessary due to age. Surgical History Surgery Date(Month/Year) tubal ligation D&C
== END 2024-12-31 09:42 | disposition home or self-care (01) ==
LOC: HO.HMCHD 08:56
PROVIDERS: PCP Internal Medicine; Visit Provider Physician Assistant
DX: E78.5 Hyperlipidemia, unspecified (principal); I10 Essential (primary) hypertension; G30.9 Alzheimer's disease, unspecified; F02.A0 Dementia in other diseases classified elsewhere, mild, without behavioral disturbance, psychotic disturbance, mood disturbance, and anxiety; M17.0 Bilateral primary osteoarthritis of knee; M54.30 Sciatica, unspecified side

== ENCOUNTER → 2024-12-31 08:55 | Outpatient (BNVA) | payer MEDICARE, SELFPAY | PROVIDERS: PCP Internal Medicine; Visit Provider Physician Assistant | DX: I10 Essential (primary) hypertension (principal); E78.5 Hyperlipidemia, unspecified; K21.9 Gastro-esophageal reflux disease without esophagitis; Z79.899 Other long term (current) drug therapy; J45.909 Unspecified asthma, uncomplicated; G30.9 Alzheimer's disease, unspecified; F02.80 Dementia in other diseases classified elsewhere, unspecified severity, without behavioral disturbance, psychotic disturbance, mood disturbance, and anxiety; M17.0 Bilateral primary osteoarthritis of knee; M54.30 Sciatica, unspecified side; Z13.31 Encounter for screening for depression; Z13.39 Encounter for screening examination for other mental health and behavioral disorders | CPT/HCPCS: 96127; 99212 ==

== ENCOUNTER 2025-03-11 12:30 | Outpatient (AMB) | payer MEDICARE, SELFPAY ==
[2025-03-11 12:43] VITALS: BP 136/76; PULSE 65; RESP 16; TEMP 36.8; O2SAT 97; BMI 27.1
--- NOTE | 2025-03-11 12:43 | MHC.OFFWIV ---
Intake Vital Signs 03/11/25 12:43 Height 4 ft 11 in Weight 134 lb BMI 27.1 BP 136/76 Blood Pressure Location Rt brachial Position Sitting Respiration 16 Pulse 65 Pulse Source Pulse Oximeter Temp 98.2 F Temp Source Oral Pulse Oximetry (%) 97 Oxygen Delivery Method Room Air Intake Visit Reasons: EP Vomitting, Diarrhea Intake Note: Pt is here today c/o vomiting and diarrhea started today Patient Tobacco Use Status: Never used Tobacco Allergies codeine (CODEINE) Allergy (Severe, Verified 03/11/25 12:58) DIFFICULTY BREATHING meperidine (Demerol) Allergy (Unknown, Verified 03/11/25 12:58) Nausea and Vomiting From DARVON Allergy (Severe, Uncoded 03/11/25 12:58) SHORTNESS OF BREATH Codeine Phosphate Allergy (Unknown, Uncoded 03/11/25 12:58) Nausea and Vomiting Darvon Allergy (Unknown, Uncoded 03/11/25 12:58) Shortness of Breath HPI HPI Comments History of Present Illness Details This is a an 80-year-old female with a past medical history of hypertension, hyperlipidemia, gastroesophageal reflux disease, colitis and diverticulitis presenting for evaluation of nausea and vomiting that started this morning. Patient states that she had 3 episodes of vomiting and 3 episodes of diarrhea this morning. At this time the patient no longer feels nauseous. She denies having any blood in her stools, blood in her vomitus, fevers, chills, abdominal pain, dysuria or urinary frequency. [facility] Medical History (Updated 03/11/25 @ 13:26 by Belkis Slade PA-C) Osteoarthritis of knees, bilateral GERD (gastroesophageal reflux disease) Arthritis Glucose intolerance Asthma HTN (hypertension) HLD (hyperlipidemia) Surgical History H/O dilation and curettage H/O tubal ligation Family History Mother No problems noted. Father No problems noted. Social History Household Members: None Housing: House Do you presently have visiting nurse or other home services: No Patient Tobacco Use Status: Never used Tobacco e-Cigarette/Vaping Use: Never Used Second Hand Smoke Exposure: No service: No Current occupational status: retired Cognitive needs: No Hearing needs: No Vision needs: Yes (reading glasses) Review of Systems Const All systems reviewed & are unremarkable except as noted in HPI and below Denies body aches, Denies chills and Denies fever(s) ENT Denies dry mouth Card Denies chest pain and Denies edema Resp Denies cough GI Denies abdominal pain, Denies melena, Denies hematochezia, Reports diarrhea, Reports vomiting and Denies hematemesis Reports no additional complaints, Denies dysuria and Denies urinary urgency Musc Reports no additional complaints Skin/Breast Reports system reviewed and no additional complaints, except as documented Physical Exam Vital Signs: BMI result Body Mass Index 27.1 Patient is afebrile. Const General: cooperative, healthy appearing, comfortable, no acute distress, well developed, alert, awake and Physically active; No ill appearing or lethargic Nutritional Appearance: average body habitus Orientation/consciousness: patient oriented x3 and No lethargic Limitations: no limitations Cardio Rate: regular rate Rhythm: regular rhythm GI Inspection: Yes normal to inspection, No Abdominal wall edema and No distended Palpation (GI): Soft to palpation, nontender and no guarding Auscultation: normal bowel sounds General: Yes Bimanual renal exam normal bilaterally and Yes bladder normal to palpation Bimanual exam- vagina & uterus: bladder normal to palpation Skin General skin exam: no rashes or lesions noted Neuro General: patient oriented x3 Psych Appearance: grossly normal Mental Status: mental status grossly normal Insight: Good insight present (Psych) Judgement: Good judgement present (Psych) Assessment & Plan Assessment & Plan (1) Nausea and vomiting: Comment: Patient denies hydrated patient will be discharged home with Zofran. Code(s): R11.2 - Nausea with vomiting, unspecified Qualifiers: Vomiting type: unspecified Qualified Code(s): R11.2 - Nausea with vomiting, unspecified Plan: Zofran q.6 to 8 hours as needed for nausea, patient is instructed to stay very well hydrated with water, tea, broth or Gatorade as tolerated. (2) Diarrhea in adult patient: Comment: No further treatment is prescribed at this time however patient is urged to stay well hydrated upon returning home. Code(s): R19.7 - Diarrhea, unspecified Plan: Hydration as tolerated, follow up only as needed. Medications: New ondansetron 4 mg PO Q8H PRN 10 tabs 0RF nausea and vomiting Coding Level of Care Code Est Pt Level 3 (35346) Diagnoses Nausea and vomiting, unspecified vomiting type R11.2 Vomiting type: unspecified Diarrhea in adult patient R19.7 Time Spent (min) 20
--- OUTSIDE RECORDS SUMMARY | 2025-03-11 13:45 | XMS_ITS | Patient Health Record ---
Author Organization [facility] Address [address] [place] [address] Care Team Providers Care Rural Carrier Associate Name Role Phone Angie Fry M.D. Primary [...] date:04/23/2024 11:17:01 PM Interpretation: Performing Lab: Notes/Report: [address] [address] Magnetic Resonance Report Signed Patient: Yolanda Elizabeth MR#: [id number] 651 : 1945 Acct:[id number] Age/Sex: 79 / F ADM Date: 04/02/24 Loc: HO.MRI Attending Dr: Earl Sawyer MD Ordering Physician: Earl Sawyer MD Date of Service: 04/02/24 Procedure(s): MR abdomen wo/w con Accession Number(s): [id number] cc: Earl Sawyer MD; Harvey Soria MD [...] 04/21/24 1014 DD/ 1533 TD/TT: 04/02/24 1730 Global Recruiter: US abdomen complete Reviewed date:04/23/2024 11:17:08 PM Interpretation: Performing Lab: Notes/Report: [address] [address] Ultrasound Report Signed Patient: Yolanda Elizabeth MR#: [id number] 651 : 1945 Acct:[id number] Age/Sex: 79 / F ADM Date: 04/02/24 Loc: HO.US Attending Dr: Earl Sawyer MD Ordering Physician: Earl Sawyer MD Date of Service: 04/02/24 Procedure(s): US abdomen complete Accession Number(s): [id number] cc: Earl Sawyer MD; Harvey Soria MD [...] 04/19/24 1154 DD/ 0837 TD/TT: 04/02/24 0907 Global Recruiter: CT abdomen pelvis w con Reviewed date:10/07/2024 11:18:26 AM Interpretation: Performing Lab: Notes/Report: [address] [address] [address] Scan Report Signed Patient: Yolanda Elizabeth MR#: [id number] 651 : 1945 Acct:[id number] Age/Sex: 79 / F ADM Date: 10/06/24 Loc: HO.CT Attending Dr: Earl Sawyer MD Ordering Physician: Earl Sawyer MD Date of Service: 10/06/24 Procedure(s): CT abdomen pelvis w IV con Accession Number(s): [id number] cc: Earl Sawyer MD; Angie Fry MD Report Number: [id number]: Total DLP = 317.00 mGy-cm EXAMINATION: CT [...] 10/06/24 1028 DD/ 0921 TD/TT: 10/06/24 0953 Global Recruiter: Creatinine GFR POC Reviewed date:10/06/2024 04:40:52 PM Interpretation: Performing Lab:[facility], [address] [place] [id number] Notes/Report: [id number] 0.66 >60 0911 [place] Creatinine POC 0.7 0.5-1.4 mg/dL GFR POC > 60 Chronic Kidney Disease: Estimated GFR < 60 mL/min/1.73m2 Severe Kidney Disease: Estimated GFR < 15 mL/min/1.73m2 Reason For Referral No Information Medications Medication SIG (Take, Route, Frequency, Duration) Notes Start Date End Date Status Sertraline HCl 25 MG 1 tablet Orally Onc e a day; Duration: 30 day(s) Active Vitamin D Active Vitamin [...] a day Active flovent HFA 1 tab Oral; Duration : 14 days Active Immunizations Vaccine Route Administration Date Status Comme nts Flu vaccine no Preserv 3 and > Unknown 02/28/2016 Admin istered Influenza Unknown 01/11/2020 Administered Influenza Unknown 03/16/2024 Administered Problems Problem Type SNOMED Code ICD Code Onset Dates Problem Status W/U Status Risk Notes Problem Colon cancer screening (230440138) Colon cancer screening (Z12.11) Active confirmed Problem Rectal bleeding (50823251) Rectal bleeding (K62.5) Active confirmed Problem Flatulence, eructation and gas pain (922523514) Bloating (R14.0) Active confirmed Problem manager long term care current use of non-steroidal anti-inflammatory drug (773586487446224) manager long term care (current) use of non-steroidal anti-inflammatorie s (NSAID) (Z79.1) Active confirmed Problem Generalized abdominal pain (521864418) Generalized abdominal pain (R10.84) Active confirmed Problem Imaging of gastrointestinal tract abnormal (870073135) Abnormal CT scan, gastrointestinal tract (R93.3) Active confirmed Problem Diverticular disease of colon (729361157) Diverticulosis of large intestine without hemorrhage (K57.30) Active confirmed Problem Constipation (65081453) Constipation, unspecified constipation type (K59.00) Active confirmed Problem Altered bowel function (93001985) Change in bowel movement (R19.8) Active confirmed Problem CT of abdomen abnormal (00884061806213309) Abnormal abdominal CT scan (R93.5) Active confirmed Problem Abdominal mass (finding) (481557175) Abdominal mass, unspecified abdominal location (R19.00) Active confirmed Problem Gallbladder mass (621687886638677) Gallbladder mass (K82.8) Active confirmed Problem Abdominal mass (finding) (592821121) Abdominal mass of other site (R19.09) Active confirmed Problem 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 Vital Signs Temperature 97.4 degrees Fahrenheit 10/18/2024 Blood pressure diastolic 01 mm Hg 10/18/2024 Height 57.75 in 10/18/2024 Blood pressure systolic 001 mm Hg 10/18/2024 Weight 136.6 lbs 10/18/2024 BMI 28.79 kg/m2 10/18/2024 Encounters Encounter Location Date Provider Diagnosis [facility] [address] [facility] [address] [place] [address] 03/22/2024 Earl Sawyer Jr Abnormal CT scan, gastrointestinal tract R93.3 ; Gallbladder mass K82.8 and Abdominal mass of other site R19.09 [facility] [address] [place] [address] 10/18/2024 Earl Sawyer Jr Mesenteric mass K63.89 ; Diverticulosis of large intestine without hemorrhage K57.30 and Gallbladder mass K82.8 [facility] [address] [place] [address] 03/17/2024 Earl Sawyer Jr [facility] [address] [place] [address] 03/29/2024 Earl Sawyer Jr Abdominal mass, unspecified abdominal location R19.[address] scan R93.5 [facility] [address] [place] [address] 03/30/2024 Earl Sawyer Jr [facility] [address] [place] [address] 04/19/2024 Earl Sawyer Jr Mesenteric mass K63.89 [facility] [address] [place] [address] 04/21/2024 Earl Sawyer Jr [facility] [address] [place] [address] 05/10/2024 Earl Sawyer Jr [facility] [address] [place] [address] 06/23/2024 Earl Sawyer Jr Generalized abdominal pain R10.84 and Change in bowel movement R19.8 [facility] [address] [place] [address] 07/01/2024 Earl Sawyer Jr [facility] [address] [place] [address] 08/19/2024 Earl Sawyer Jr Generalized abdominal pain R10.84 and Change in bowel movement R19.8 [facility] [address] [place] [address] 10/07/2024 Earl Sawyer Jr [facility] [address] [place] [address] 10/12/2024 Earl Sawyer Jr Assessments Encounter Date [...] Order Date BUN 06/23/2024 BUN 08/19/2024 CREATININE 08/19/2024 CREATININE 06/23/2024 LIVER PROFILE 06/23/2024 LIPASE 06/23/2024 CBC w/o DIFF 06/23/2024 CT ABD & PELVIS WITH CONTRAST 06/23/2024 CT COLON SCREENING NO CONTRAST 7 CT COLON SCREENING NO CONTRAST 8 Future Test Test Name Order Date COLONOSCOPY 06/26/2011 COLONOSCOPY 01/15/2017 COLONOSCOPY 11/22/2020 US ABD 03/22/2024 Next Appt Details Provider Name:Earl Shultz ortiz Jr, 10/24/2025 09:00:00 AM, [address], [address], [place], [address], Insurance Providers Payer Name Payer Address Payer Phone Subscriber Number Group Number Insured Name Patient Relationship to Insured Coverage Start Date Coverage End Date MEDICARE OF [place] [address] [place] [address] [phone] [id number] YOLANDA ELIZABETH Self - patient is the insured [employer] CLAIM[employer] [address] [place] [address] [id number] YOLANDA ELIZABETH Self - patient is the insured Medical (General) History Medical History History ICD Code Hyperlipidemia Hypertension Asthma Glucose intolerance Arthritis Gastroesophageal reflux disease Dementia, Alzheimer type, mild Colonoscopy 11/29, diverticul osis, hemorrhoids. Followup not necessary due to age. Surgical History Surgery Date(Month/Year) tubal ligation D&C
== END 2025-03-11 13:29 | disposition home or self-care (01) ==
PROVIDERS: PCP Internal Medicine; Visit Provider Physician Assistant
DX: R11.2 Nausea with vomiting, unspecified (principal); R19.7 Diarrhea, unspecified

== ENCOUNTER → 2025-03-11 12:30 | Outpatient (BNVA) | payer MEDICARE, SELFPAY | PROVIDERS: PCP Internal Medicine; Visit Provider Physician Assistant | DX: R11.2 Nausea with vomiting, unspecified (principal); R19.7 Diarrhea, unspecified | CPT/HCPCS: 99212 ==

== ENCOUNTER 2025-03-28 14:26 | Outpatient (AMB) | payer MEDICARE, SELFPAY ==
--- NOTE | 2025-03-28 14:31 | A.OFFVIS_ITS ---
Vital Signs 03/28/25 14:45 Height 4 ft 9 in Weight 136 lb BMI 29.4 BP 188/76 H Blood Pressure Location Lt brachial Position Sitting Respiration 16 Pulse 70 Pulse Source Pulse Oximeter Pulse Oximetry (%) 99 Oxygen Delivery Method Room Air Comment Provider aware of elevated BP, pt has missed doses of Metoprolol Intake Visit Reasons: 3m follow up (ana PT ) Warning Coordination Meteorologist Required: No Accompanied by: Daughter Allergies codeine (CODEINE) Allergy (Severe, Verified 03/28/25 14:47) DIFFICULTY BREATHING meperidine (Demerol) Allergy (Unknown, Verified 03/28/25 14:47) Nausea and Vomiting From DARVON Allergy (Severe, Uncoded 03/28/25 14:47) SHORTNESS OF BREATH Codeine Phosphate Allergy (Unknown, Uncoded 03/28/25 14:47) Nausea and Vomiting Darvon Allergy (Unknown, Uncoded 03/28/25 14:47) Shortness of Breath HPI Comments Details: Yolanda is an 80-year-old female patient with a past medical history of hypertension, hyperlipidemia, GERD, asthma, and seasonal allergies here today for a follow up visit for memory. She previously saw Dr. Yadav most recently in November of 2024 at which time it is noted that her memory issues started in 2021 and her clinical picture was suggestive of Alzheimer's type dementia. She was sleeping okay at the time and mood was okay without any significant arising behavioral concerns. She was at the time of the last visit prescribed sertraline 25 mg daily and donepezil 5 mg daily. Today, she is present with her daughter. Her daughter shares that her mother is having a lot of anxiety and is not sleeping well. She has also been forgetting to take some medications and believes she is taking for least a couple months. Overall, Yolanda is quite independent in her self-care though does need help and oversight with her financial affairs, medications, and some of her household tasks. She does herself report anxiety in regards to some of her forgetfulness and general health. She can sometimes forget to check dates on food such as lunch meat. She has twice now eaten lunch meat and has gotten sick because she will forget to throw away old meat or track the date before consuming it. Her daughter inquires today about increasing her sertraline and donepezil and as ks whether or not it would be reasonable to have someone come to the home for a couple of hours during the day to help assist with administration of medications, her mother's self-care, and any other affairs around the home such as chores or assisting with physical activities. [facility] Medical History (Updated 03/11/25 @ 13:26 by Belkis Slade PA-C) Osteoarthritis of knees, bilateral GERD (gastroesophageal reflux disease) Arthritis Glucose intolerance Asthma HTN (hypertension) HLD (hyperlipidemia) Surgical History H/O dilation and curettage H/O tubal ligation Family History Mother No problems noted. Father No problems noted. Social History Household Members: None Housing: House Do you presently have visiting nurse or other home services: No Patient Tobacco Use Status: Never used Tobacco e-Cigarette/Vaping Use: Never Used Second Hand Smoke Exposure: No service: No Current occupational status: retired Cognitive needs: No Hearing needs: No Vision needs: Yes (reading glasses) Review of Systems Const All systems reviewed & are unremarkable except as noted in HPI and below Physical Exam Const General: cooperative, healthy appearing, comfortable and no acute distress Nutritional Appearance: well nourished Orientation/consciousness: patient oriented x3 Limitations: no limitations HEENT Head: Yes normal to inspection and Yes normocephalic Eyes General: appearance normal, both eyes and all related structures Visual Antoine: normal visual antoine by confrontation Alignment and Position: alignment normal Periorbital: periorbital findings normal Eyelids: Yes eyelids normal Conjunctivae: conjunctivae normal Sclerae: sclerae normal Neuro General: patient oriented x3 Cognition (Neuro): abnormal cognition (Forgetful at times ) Gait exam (Neuro): Normal gait present Motor exam (neuro): no tremor noted Sensory Exam: double simultaneous stimulation for sensation normal Romberg Test: Negative Pupils: Normal pupillary reactivity/response: bilateral Psych Appearance: grossly normal Mental Status: mental status grossly normal Speech and movement: Normal speech and movement present and Clear speech present Affect: normal affect Attitude: cooperative Thought process: Normal thought process present Thought content: Normal thought content present Insight: Good insight present (Psych) Judgement: Good judgement present (Psych) Assessment & Plan Assessment & Plan (1) Alzheimer dementia: Code(s): G30.9 - Alzheimer's disease, unspecified; F02.80 - Dementia in other diseases classified elsewhere, unspecified severity, without behavioral disturbance, psychotic disturbance, mood disturbance, and anxiety Category: Medical Qualifiers: Alzheimer's disease onset: unspecified onset Dementia severity: mild Dementia behavioral or psychological symptom: without behavioral, psychotic, or mood disturbance or anxiety Qualified Code(s): G30.9 - Alzheimer's disease, unspecified; F02.A0 - Dementia in other diseases classified elsewhere, mild, without behavioral disturbance, psychotic disturbance, mood disturbance, and anxiety Plan Yolanda is an 80-year-old female patient with a past medical history of hypertension, hyperlipidemia, GERD, asthma, and seasonal allergies here today for a follow up visit for memory. Based on her history and current cognitive status, she exhibits an Alzheimer's type dementia for which she will need continued cognitive, behavioral, and functional support. At this point, we can optimize her sertraline and donepezil and I do believe that having a couple hours of surface in her home would assist with medication compliance, self-care, and adherence to other regimens such as physical activity. I will increase dosing on sertraline and donepezil and her daughter well pursue means to obtain help in the home though Yolanda is feeling slightly anxious about this idea. -Increase sertraline from 25 mg daily to 50 mg daily -Increase donepezil from 5 mg daily to 10 mg daily -Provide letter to insurance company in support home care for a couple of hours per day to assist with functional needs -MOCA at next visit -Follow-up 6 weeks Medications: New donepezil 10 mg PO BEDTIME 30 tabs 2RF 30 days sertraline 50 mg PO DAILY 30 tabs 2RF 30 days Discontinued sertraline Discontinued Reason: Duplicate 25 mg PO DAILY 90 tabs 0RF donepezil Discontinued Reason: Doctor's Order 5 mg PO DAILY 90 tabs 0RF Coding Level of Care Code Est Pt Level 4 (97808) Diagnoses Mild Alzheimer's dementia without behavioral disturbance, psychotic disturbance, mood disturbance, or anxiety, unspecified timing of dementia onset G30.9; F02.A0 Alzheimer's disease onset: unspecified onset Dementia severity: mild Dementia behavioral or psychological symptom: without behavioral, psychotic, or mood disturbance or anxiety
[2025-03-28 14:45] VITALS: BP 188/76; PULSE 70; RESP 16; O2SAT 99; BMI 29.4
== END 2025-03-28 15:39 | disposition home or self-care (01) ==
LOC: HO.HSM 14:27
PROVIDERS: PCP Internal Medicine; Visit Provider Nurse Practitioner
DX: G30.9 Alzheimer's disease, unspecified (principal); F02.A0 Dementia in other diseases classified elsewhere, mild, without behavioral disturbance, psychotic disturbance, mood disturbance, and anxiety
CPT/HCPCS: 99214

== ENCOUNTER → 2025-03-28 14:26 | Outpatient (BNVA) | payer MEDICARE, SELFPAY | PROVIDERS: PCP Internal Medicine; Visit Provider Nurse Practitioner | DX: G30.9 Alzheimer's disease, unspecified (principal); F02.A0 Dementia in other diseases classified elsewhere, mild, without behavioral disturbance, psychotic disturbance, mood disturbance, and anxiety | CPT/HCPCS: 99212 ==

== ENCOUNTER 2025-05-09 14:02 | Outpatient (AMB) | payer MEDICARE, SELFPAY ==
--- NOTE | 2025-05-09 14:09 | MHC.OFFVIS ---
Vital Signs 05/09/25 14:16 Height 4 ft 9 in Weight 136 lb BMI 29.4 BP 138/88 Blood Pressure Location Rt brachial Position Right Lateral Respiration 16 Pulse 68 Pulse Source Pulse Oximeter Pulse Oximetry (%) 98 Oxygen Delivery Method Room Air Intake Visit Reasons: 6 weeks Home Care And Home Health Aides Teacher Required: No Accompanied by: Daughter Allergies codeine (CODEINE) Allergy (Severe, Verified 05/09/25 14:17) DIFFICULTY BREATHING meperidine (Demerol) Allergy (Unknown, Verified 05/09/25 14:17) Nausea and Vomiting From DARVON Allergy (Severe, Uncoded 05/09/25 14:17) SHORTNESS OF BREATH Codeine Phosphate Allergy (Unknown, Uncoded 05/09/25 14:17) Nausea and Vomiting Darvon Allergy (Unknown, Uncoded 05/09/25 14:17) Shortness of Breath HPI Comments Details: Yolanda is an 80-year-old female patient with a past medical history of hypertension, hyperlipidemia, GERD, asthma, and seasonal allergies here today for a follow up visit for memory. She previously saw Dr. Yadav most recently in November of 2024 at which time it is noted that her memory issues started in 2021 and her clinical picture was suggestive of Alzheimer's type dementia. She was sleeping okay at the time and mood was okay without any significant arising behavioral concerns. She was at the time of the last visit prescribed sertraline 25 mg daily and donepezil 5 mg daily. During our last follow-up visit together on 03/28/2025, she and her daughter mentioned some depressed moods and we optimized her sertraline from 25 mg daily to 50 mg daily and we increased her donepezil from 5 mg daily to 10 mg daily as she has been tolerating it well. We also had long discussions about allowing for others to come into the home to help as her daughter was the only one able to assist. This would take the burden off of her daughter. She was warming up to the idea last visit. She does need some assistance with things such as remembering to take her morning medications, medication set up, and remembering certain chores around the house. Aside from this, she does remain relatively independent with close oversight from her daughter. During today's visit, her daughter reports that she has not seen much of a change in her mother's moods or cognitive functioning with the dose increase his on her sertraline and donepezil. She has however tolerating them well. She does note that her mother however may be missing some pills as she has picked at her medication boxes and has noticed some missing pills from time to time. She has not yet started with the company for in-home assistance or services and still is somewhat resistant to the idea. Her daughter was hopeful that her mother for this as it would help to alleviate some of the burden her. [facility] Medical History (Updated 03/11/25 @ 13:26 by Belkis Slade PA-C) Osteoarthritis of knees, bilateral GERD (gastroesophageal reflux disease) Arthritis Glucose intolerance Asthma HTN (hypertension) HLD (hyperlipidemia) Surgical History H/O dilation and curettage H/O tubal ligation Family History Mother No problems noted. Father No problems noted. Social History Household Members: None Housing: House Do you presently have visiting nurse or other home services: No Patient Tobacco Use Status: Never used Tobacco e-Cigarette/Vaping Use: Never Used Second Hand Smoke Exposure: No service: No Current occupational status: retired Cognitive needs: No Hearing needs: No Vision needs: Yes (reading glasses) Review of Systems Const All systems reviewed & are unremarkable except as noted in HPI and below Physical Exam Exam Exam: MOCA: MOCA total: Executive:25 Namin3 Attention:08/15 Language:13 Abstraction:2/2 Delayed recall:0/5 Orientation:07/15 Vital Signs: Last Vital Signs Pulse 68 05/09/25 14:16 Resp 16 05/09/25 14:16 BP 138/88 05/09/25 14:16 Pulse Ox 98 05/09/25 14:16 Oxygen Delivery Method Room Air 05/09/25 14:16 BMI result Body Mass Index 29.4 Const General: cooperative, healthy appearing, comfortable and no acute distress Nutritional Appearance: well nourished Orientation/consciousness: patient oriented x3 Limitations: no limitations HEENT Head: Yes normal to inspection and Yes normocephalic Eyes General: appearance normal, both eyes and all related structures Visual Antoine: normal visual antoine by confrontation Alignment and Position: alignment normal Periorbital: periorbital findings normal Eyelids: Yes eyelids normal Conjunctivae: conjunctivae normal Sclerae: sclerae normal Neuro General: patient oriented x3 Cognition (Neuro): abnormal cognition (Forgetful at times ) Gait exam (Neuro): Normal gait present Motor exam (neuro): no tremor noted Sensory Exam: double simultaneous stimulation for sensation normal Romberg Test: Negative Pupils: Normal pupillary reactivity/response: bilateral Psych Appearance: grossly normal Mental Status: mental status grossly normal Speech and movement: Normal speech and movement present and Clear speech present Affect: normal affect Attitude: cooperative Thought process: Normal thought process present Thought content: Normal thought content present Insight: Good insight present (Psych) Judgement: Good judgement present (Psych) Assessment & Plan Assessment & Plan (1) Alzheimer dementia: Code(s): G30.9 - Alzheimer's disease, unspecified; F02.80 - Dementia in other diseases classified elsewhere, unspecified severity, without behavioral disturbance, psychotic disturbance, mood disturbance, and anxiety Category: Medical Qualifiers: Alzheimer's disease onset: unspecified onset Dementia severity: mild Dementia behavioral or psychological symptom: without behavioral, psychotic, or mood disturbance or anxiety Qualified Code(s): G30.9 - Alzheimer's disease, unspecified; F02.A0 - Dementia in other diseases classified elsewhere, mild, without behavioral disturbance, psychotic disturbance, mood disturbance, and anxiety Plan Yolanda is an 80-year-old female patient with a past medical history of hypertension, hyperlipidemia, GERD, asthma, and seasonal allergies here today for a follow up visit for memory. She exhibits an Alzheimer's type dementia. We have following for supportive care. At time last visit, it was noted that she did have some decline in cognitive functioning as well as some depressed moods. Her sertraline was increased to 50 mg daily and her donepezil was optimized from 5 mg daily to 10 mg daily. She continues to have some depressed moods and difficulty with day-to-day executive functioning. She has not seen a major change with the increase in medications though it is tolerating them well. We will continue them for now. I did encourage the Yolanda allow for more help from others for her functional deficits including allowing her daughter to help with medication set up as well as allowing for in-home services couple hours per day. MOCA score today was 15/30 -Continue sertraline 50 mg daily -Continue donepezil 10 mg daily -Encouraged assistance at home/home health services a couple hours per week -Encouraged patient to allow daughter in assisting with medication box preparation for the week -Follow-up in 2 months Coding Level of Care Code Est Pt Level 3 (37984) Diagnoses Mild Alzheimer's dementia without behavioral disturbance, psychotic disturbance, mood disturbance, or anxiety, unspecified timing of dementia onset G30.9; F02.A0 Alzheimer's disease onset: unspecified onset Dementia severity: mild Dementia behavioral or psychological symptom: without behavioral, psychotic, or mood disturbance or anxiety
[2025-05-09 14:16] VITALS: BP 138/88; PULSE 68; RESP 16; O2SAT 98; BMI 29.4
--- OUTSIDE RECORDS SUMMARY | 2025-05-09 16:20 | XMS_ITS | Patient Health Record ---
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 Primary Care Provider Earl Cook Jr Unavailable Allergies Allergen (clinical drug ingredient) Drug/Non Drug Allergy documented on EMR Reaction Allergy Type Onset Date Status codeine codeine (uncoded) Unknown Allergy Ac tive darvon (uncoded) Unknown Allergy Act matteo meperidine Demerol Unknown Drug Allergy Active Results Component Value Reference Range Flag Notes Creatinine GFR POC Reviewed date:10/06/2024 04:40:52 PM Interpretation: Performing Lab:[facility], [address] [place] [phone] Notes/Report: [id number] 0.66 >60 0911 HO.RIVESJ Creatinine POC 0.7 0.5-1.4 mg/dL N GFR POC > 60 Chronic Kidney Disease: Estimated GFR < 60 mL/min/1.73m2 Severe Kidney Disease: Estimated GFR < 15 mL/min/1.73m2 CT abdomen pelvis w con Reviewed date:10/07/2024 11:18:26 AM Interpretation: Performing Lab: Notes/Report: [address] [address] [address] Scan Report Signed Patient: Yolanda Elizabeth MR#: [id number] : 1945 Acct:[id number] Age/Sex: 79 / F ADM Date: 10/06/24 Loc: HO.CT Attending Dr: Earl Sawyer MD Ordering Physician: Earl Sawyer MD Date of Service: 10/06/24 Procedure(s): CT abdomen pelvis w IV con Accession Number(s): [id number] cc: Earl Sawyer MD; Angie Fry MD Report Number: [id number]: Total DLP = 317.00 mGy-cm EXAMINATION: CT [...] MD 10/06/2024 10:28 AM EDT Dictated By: oPnce Vásquez MD Signed By: <Electronically signed by Ponce Vásquez MD in OV> 10/06/24 1028 DD/ 0921 TD/TT: 10/06/24 0953 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: Reason For Referral No Information Medications Medication SIG (Take, Route, Frequency, Duration) Notes Start Date End Date Status Sertraline HCl 25 MG Tablet 1 tablet Ora lly Once a day; Duration: 30 day(s) Active Vitamin D Active Vitamin B + C Complex - Tablet as directed Orally Active Vitamin C 500 MG Capsule as directed Orally Active NIFEdipine 30 MG Tablet Extended Release 1 tablet Orally Once a day Active Lisinopril 5 MG Tablet 1 tablet Orally O nce a day Active Atorvastatin Calcium 10 MG Tablet 1 tablet Orally Once a day Active PreserVision AREDS 2 1 Capsule 1 Orally QD Active Furosemide 40 MG Tablet 1 tablet Orally Once a day Active CoQ10 200 MG Capsule 1 capsule with a me al Orally Once a day Active Ventolin HFA 108 (90 Base) MCG/ACT Aerosol Solution 2 puffs as needed Inhalation every 4 hrs/prn Active Flovent Diskus 50 MCG/BLIST Aerosol Powder Breath Activated 1 puff Inhalation Twice a day/prn Active Omeprazole 10 MG Capsule Delayed Release 1 capsule Orally Once a day Active Metoprolol Succinate ER 25 MG Tablet Extended Release 24 Hour 1 tablet Orally Once a day Active Glucosamine Complex/Vitamin D3 1000 Tablet 2 Orally QD Active Vitamin B Complex 1 Tablet 1 Orally QD Active Vitamin C Adult Gummies 125 MG Tablet Chewable 1 Orally QD Active Potassium 99 MG Tablet 1 tablet Orally O nce a day Active flovent HFA 1 tab Oral; Duration : 14 days Active Immunizations Vaccine Route Administration Date Status Comme nts Flu vaccine no Preserv 3 and > Unknown 02/28/2016 Admin istered Influenza Unknown 01/11/2020 Administered Influenza Unknown 03/16/2024 Administered Social History Social History Additional Details Category Social Info Options Details Miscellaneous: Marital status: Occupation: retired Section Notes: She denies tobacco use and a lcohol use. She denies tobacco use and a lcohol use. She denies tobacco use and a lcohol use. She denies tobacco use and a lcohol use. She denies tobacco use and a lcohol use. She denies tobacco use and a lcohol use. She denies tobacco use and a lcohol use. She denies tobacco use and a lcohol use. Problems Problem Type SNOMED Code ICD Code Onset Dates Problem Status W/U Status Risk Notes Problem Colon cancer screening (803500915) Colon cancer screening (Z12.11) Active confirmed Problem Rectal bleeding (96967213) Rectal bleeding (K62.5) Active confirmed Problem Flatulence, eructation and gas pain (144367402) Bloating (R14.0) Active confirmed Problem oysterman current use of non-steroidal anti-inflammatory drug (013678086949086) group home (current) use of non-steroidal anti-inflammatorie s (NSAID) (Z79.1) Active confirmed Problem Generalized abdominal pain (213349277) Generalized abdominal pain (R10.84) Active confirmed Problem Imaging of gastrointestinal tract abnormal (311361937) Abnormal CT scan, gastrointestinal tract (R93.3) Active confirmed Problem Diverticular disease of colon (638107730) Diverticulosis of large intestine without hemorrhage (K57.30) Active confirmed Problem Constipation (39290136) Constipation, unspecified constipation type (K59.00) Active confirmed Problem Altered bowel function (15102017) Change in bowel movement (R19.8) Active confirmed Problem CT of abdomen abnormal (41505848147648534) Abnormal abdominal CT scan (R93.5) Active confirmed Problem Abdominal mass (finding) (125659279) Abdominal mass, unspecified abdominal location (R19.00) Active confirmed Problem Gallbladder mass (551705275494028) Gallbladder mass (K82.8) Active confirmed Problem Abdominal mass (finding) (992237910) Abdominal mass of other site (R19.09) Active confirmed Problem 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 Vital Signs Temperature 97.4 degrees Fahrenheit 10/18/2024 Blood pressure diastolic 01 mm Hg 10/18/2024 Height 57.75 in 10/18/2024 Blood pressure systolic 001 mm Hg 10/18/2024 Weight 136.6 lbs 10/18/2024 BMI 28.79 kg/m2 10/18/2024 Encounters Encounter Location Date Provider Diagnosis [facility] [address] [place] [phone] 10/18/2024 Earl Sawyer Jr Mesenteric mass K63.89 ; Diverticulosis of large intestine without hemorrhage K57.30 and Gallbladder mass K82.8 [facility] [address] [place] [phone] 05/10/2024 Earl Sawyer Jr [facility] [address] [place] [phone] 06/23/2024 Earl Sawyer Jr Generalized abdominal pain R10.84 and Change in bowel movement R19.8 [facility] [address] [place] [phone] 07/01/2024 Earl Sawyer Jr [facility] [address] [place] [phone] 08/19/2024 Earl Sawyer Jr Generalized abdominal pain R10.84 and Change in bowel movement R19.8 [facility] [address] [place] [phone] 10/07/2024 Earl Saywer Jr [facility] [address] [place] [phone] 10/12/2024 Earl Sawyer Jr Assessments Encounter Date Diagnosis (ICD Code) Assessment Notes Treatment Notes Treatment Clinical Notes Section Notes 10/18/2024 Diverticulosis of large intestine without hemorrhage (ICD-10 - K57.30) At this time, she is doing well. We reviewed the findings from her imaging studies in detail today. We recommended she continue to follow a high-fiber diet and discussed what to watch for in terms of symptoms of diverticulitis . The mesenteric mass at this time seems benign based on its imaging characteristic s, and follow-up could be done in 1 [...] watch for in terms of symptoms of diverticulitis . The mesenteric mass at this time seems benign based on its imaging characteristic s, and follow-up could be done in 1 year. Her gallbladder ultrasound also appears stable. We discussed this today. Today's visit was 30 minutes. 06/23/2024 Generalized abdominal pain (ICD-10 - R10.84) 08/19/2024 Generalized abdominal pain (ICD-10 - R10.84) 08/19/2024 Change in bowel movement (ICD-10 - R19.8) 06/23/2024 Change in bowel movement (ICD-10 - R19.8) 10/18/2024 Gallbladder mass (ICD-10 - K82.8) At this time, she is doing well. We reviewed the findings from her imaging studies in detail today. We recommended she continue to follow a high-fiber diet and discussed what to watch for in terms of symptoms of diverticulitis . The mesenteric mass at this time seems benign based on its imaging characteristic s, and follow-up could be done in 1 year. Her gallbladder ultrasound also appears stable. We discussed this today. Today's visit was 30 minutes. Plan Of Treatment Pending Test Test Name [...] ABD 03/22/2024 Next Appt Details Provider Name:Earl Sophie ortiz , 10/24/2025 09:00:00 AM, [address] [place] [address], [address], [place], [address], Insurance Providers Payer Name Payer Address Payer Phone Subscriber Number Group Number Insured Name Patient Relationship to Insured Coverage Start Date Coverage End Date MEDICARE OF [place] [address] [place] [address] [id number] YOLANDA ELIZABETH Self - patient is the insured [employer] CLAIMS [address] [place] [address] [id number] YOLANDA ELIZABETH Self - patient is the insured Medical (General) History Medical History History ICD Code Hyperlipidemia Hypertension Asthma Glucose intolerance Arthritis Gastroesophageal reflux disease Dementia, Alzheimer type, mild Colonoscopy 11/29, diverticul osis, hemorrhoids. Followup not necessary due to age. Surgical History Surgery Date(Month/Year) D&C tubal ligation
== END 2025-05-09 14:57 | disposition home or self-care (01) ==
LOC: HO.HSM 14:03
PROVIDERS: PCP Internal Medicine; Visit Provider Nurse Practitioner
DX: G30.9 Alzheimer's disease, unspecified (principal); F02.A0 Dementia in other diseases classified elsewhere, mild, without behavioral disturbance, psychotic disturbance, mood disturbance, and anxiety
CPT/HCPCS: 99213

== ENCOUNTER → 2025-05-09 14:02 | Outpatient (BNVA) | payer MEDICARE, SELFPAY | PROVIDERS: PCP Internal Medicine; Visit Provider Nurse Practitioner | DX: G30.9 Alzheimer's disease, unspecified (principal); F02.A0 Dementia in other diseases classified elsewhere, mild, without behavioral disturbance, psychotic disturbance, mood disturbance, and anxiety | CPT/HCPCS: 99212 ==